=== PATIENT | female | born 1945 | race Caucasian/White ===

== ENCOUNTER 2020-12-04 11:33 | Outpatient (CLI) | payer MEDICARE, SELFPAY ==
--- NOTE | ~2020-12-04 | XR_ITS ---
XR foot RT standing 2V, XR foot LT standing 2V 12/04/2020 12:04 Indication: Rheumatoid arthritis. Procedure: 2 views each foot Comparison: No prior studies for comparison. Findings: Right foot: There is mild hallux valgus. There is mild osteoarthritis of the first MTP and IP joints. There are degenerative calcaneal enthesophytes. No acute fracture or traumatic malalignment. There i s suggestion of erosive change along the proximal lateral aspect of the first metatarsal. Osteopenia. No acute fracture or malalignment. Left foot: Severe osteoarthritis first MTP joint. Mild degenerative change of the first IP joint. The re is possible erosion proximal lateral base first metatarsal. Prominent degenerative calcaneal enthe sophyte at the plantar surface. Impression: 1: Possible erosive changes proximal lateral base of the first metatarsals bilaterally, likely relate d to inflammatory arthropathy. 2: Bilateral osteoarthritis of the first digits, left greater than right. Reviewed, dictated and finalized at location A. ER PRESS OPERATOR Impression: 1: Possible erosive changes proximal lateral base of the first metatarsals bila terally, likely related to inflammatory arthropathy. 2: Bilateral osteoarthritis of the first digits, left greater than right. Impression: 1: Possible erosive changes proximal lateral base of the first metatarsals bila terally, likely related to inflammatory arthropathy. 2: Bilateral osteoarthritis of the first digits, left greater than right.
--- NOTE | ~2020-12-04 | XR_ITS ---
XR hand BI arthritis min 3V 12/04/2020 12:04 Indication: Bilateral hand pain. Rheumatoid arthritis. Procedure: 4 views each hand Comparison: No prior studies for comparison. Findings: Right hand: There is polyarticular osteoarthritis involving the metacarpophalangeal and interphalange al joints. Osteopenia. No erosive changes. No fracture or traumatic malalignment. Left hand: Moderate polyarticular osteoarthritis of the right first, MCP and IP joints as well as the second and third MCP and interphalangeal joints. Osteopenia. Chondrocalcinosis. No acute fracture or traumatic malalignment. No foreign bodies. No erosive changes. Impression: 1: Moderate polyarticular osteoarthritis of the hands. Reviewed, dictated and finalized at location A. GER CHINESE Impression: 1: Moderate polyarticular osteoarthritis of the hands.
== END 2020-12-04 11:34 | disposition home or self-care (01) ==
PROVIDERS: PCP Emergency Medicine; Visit Provider Internal Medicine
DX: M05.79 Rheumatoid arthritis with rheumatoid factor of multiple sites without organ or systems involvement (principal)
CPT/HCPCS: 73130; 73620

== ENCOUNTER 2020-12-28 16:47 | Outpatient (CLI) | payer MEDICARE, SELFPAY | END 2020-12-28 16:48 | disposition home or self-care (01) | LOC: ANHCOVIDVC 16:47 | PROVIDERS: PCP Emergency Medicine | DX: Z23 Encounter for immunization (principal) | CPT/HCPCS: 0001A; 91300 ==

== ENCOUNTER 2021-01-18 16:48 | Outpatient (CLI) | payer MEDICARE, SELFPAY | END 2021-01-18 16:49 | disposition home or self-care (01) | LOC: ANHCOVIDVC 16:48 | PROVIDERS: PCP Emergency Medicine | DX: Z23 Encounter for immunization (principal) | CPT/HCPCS: 0002A; 91300 ==

== ENCOUNTER 2021-03-25 11:48 | Emergency (ER) | payer MEDICARE, SELFPAY ==
--- NOTE | ~2021-03-25 | XR_ITS ---
EXAMINATION: XR knee LT 3V DATE: 03/25/2021 13:22 INDICATION: Left knee injury. TECHNIQUE: 3 views of left knee were obtained. COMPARISON: Left knee radiographs 10/27/2015 FINDINGS: Bone alignment is normal. No fracture. There is mild osteoarthritis of patellofemoral divine rtment. There is chondrocalcinosis of the menisci. There is a small knee joint effusion. IMPRESSION: 1. Mild left knee osteoarthritis. 2. Small left knee joint effusion. Reviewed, dictated and finalized at location B.
--- NOTE | ~2021-03-25 | CT_ITS ---
EXAMINATION: 1. CT facial & cervical spine wo DATE: 03/25/2021 13:13 INDICATION: Fall with head injury and abrasions to the nose. TECHNIQUE: 1. Computed tomography (CT) of the maxillofacial region and of the cervical spine were performed with out intravenous contrast. Sagittal and coronal reconstructions of both regions were obtained. Automat ed exposure control and iterative reconstruction technique were employed. The dose-length product was 250 mGy-cm. COMPARISON: None. FINDINGS: Maxillofacial CT: Likely acute fractures of the bilateral nasal bones with negligible, <1 mm displacement of the left-s ided nasal bone fracture and with angulation without displacement of the right nasal bone fracture. T here is mild associated soft tissue swelling. No other maxillofacial fractures. Chondrocalcinosis at the bilateral temporomandibular discs with moderate right-sided and mild left-sided periventricular o steoarthritis. Changes of bilateral intraocular lens replacement. Mild mucosal thickening the bilate ral maxillary sinuses. Mastoid air cells and middle ear cavities are clear. Cervical spine CT: 2 mm anterolisthesis C7 on T1. Straightening of the normal cervical lordosis. Vertebral body heights are normal. No acute fracture. Severe disc height loss with moderate to severe bilateral uncovertebra l osteoarthritis and posterior disc ossified complexes resulting in mild central canal stenosis at C4 -C5, C5-C6 and C6-C7. Moderate disc height loss at C7-T1 with disc bulges resulting in minimal centra l canal stenosis. Mild disc height loss at C2-C3 at C3-C4 with disc bulge resulting in mild central c anal stenosis at C2-C3. Multilevel moderate to severe bilateral facet osteoarthritis which along with the uncovertebral osteoarthritis contributes towards multilevel minimal to mild bilateral cervical n eural foraminal stenosis. Small amount of atherosclerotic calcific a stent the bilateral carotid bulb s. Approximately 12 mm hypodense right thyroid nodule and coarse calcific a cyst in the bilateral thy roid lobes. Mild biapical pleural-parenchymal scarring. IMPRESSION: 1. Bilateral nasal bone fractures with negligible displacement on the left and nondisplaced with mild angulation on the right. 2. Moderate to severe cervical spondylosis with no acute osseous abnormality. Reviewed, dictated and finalized at location A.
--- NOTE | ~2021-03-25 | CT_ITS ---
EXAMINATION: CT brain wo con DATE: 03/25/2021 13:13 INDICATION: Fall with head injury TECHNIQUE: Computed tomography (CT) of the head was performed without intravenous contrast. Sagittal and coronal reconstructions were performed. The mA was adjusted according to patient size. Iterative reconstruction technique was employed. The dose-length product was 529.67 mGy-cm. COMPARISON: None FINDINGS: No fracture. No acute intracranial hemorrhage, acute infarction or abnormal extra axial fluid collect ion. Symmetric prominence of the sulci consistent with mild age-appropriate diffuse cerebral volume l oss. Ventricles are normal and symmetric. No mass/mass effect. Changes of bilateral intraocular lens replacement. The orbits, paranasal sinuses and mastoid air cells are normal. IMPRESSION: 1. Normal aging brain. No fracture or acute intracranial process. Reviewed, dictated and finalized at location A.
[2021-03-25 12:03] VITALS: BP 150/82; PULSE 98; RESP 18; TEMP 36.4; O2SAT 98
--- NOTE | 2021-03-25 12:10 | ED.FALL ---
HPI - Fall General Chief Complaint: Fall Stated Complaint: Fall Time Seen by Provider: 03/25/21 12:08 Source: patient and family Mode of arrival: ambulatory Limitations: no limitations History of Present Illness HPI Narrative: Patient is a 76-year-old female who presents for evaluation following a mechanical fall. Patient states she was at the dentist office when she tripped on some carpeting, falling onto her face. She denies any prodromal symptoms previous to the fall. Denies chest pain, lightheadedness, dizziness or palpitations. Patient denies loss of consciousness. She is not on any anticoagulation. She reports nasal bone swelling with mild pain. Mild headache pain. No vision changes, nausea or vomiting. She denies neck pain. Patient states she broke her fall with her left knee and reports an abrasion over the knee as well as bruising and pain. She denies hip pain. She has been ambulatory with use of a cane which is her baseline. Related Data Home Medications Medication Instructions Recorded Confirmed Lactobacills gasseri-Bifidobac cap PO DAILY cap 10/02/19 03/16/21 bifidum,longum 1.5 billion cell capsule ascorbate calcium (vitamin C) 500 500 mg PO DAILY 10/02/19 03/16/21 mg tablet aspirin 81 mg capsule,delayed mg PO DAILY cap 10/02/19 03/16/21 release calcium carbonate 500 mg (1,250 1 tablet PO BID 10/02/19 03/16/21 mg)-vitamin D3 200 unit tablet cholecalciferol (vitamin D3) 50 2,000 unit PO DAILY 10/02/19 03/16/21 mcg (2,000 unit) tablet wheat dextrin 3 gram/3.5 gram oral See Rx Instructions .ROUTE .COMPLEX 10/02/19 03/16/21 powder packet Allergies Allergy/AdvReac Type Severity Reaction Status Date / Time ketamine Allergy Intermediate BLURRY Verified 03/25/21 12:23 VISION Review of Systems Review of Systems: Narrative: CONSTITUTIONAL: Denies fever, chills, or sweats. EYES: Denies visual changes, redness, or discharge. ENT: Denies rhinorrhea, congestion, sore throat, or otalgia. Reports nasal bone pain. CARDIOVASCULAR: Denies chest pain, palpitations, or edema. RESPIRATORY: Denies cough or dyspnea. GASTROINTESTINAL: Denies abdominal pain, nausea, vomiting, or diarrhea. GENITOURINARY: Denies dysuria or hematuria. SKIN: Denies rash or itching. MUSCULOSKELETAL: Denies back pain, joint pain, or myalgia. NEUROLOGIC: Reports headache without associated numbness, or weakness. PMFSH Past Medical History Medical History HTN (hypertension) Rheumatoid arthritis with rheumatoid factor of multiple sites without organ or systems involvement (~2017) Skin cancer Vitamin D deficiency Family History Family History Sibling Family history of heart disease in male family member before age 55, Onset Age: 36 Family history of malignant neoplasm Mother Family history of malignant neoplasm of breast in first degree relative Family history of malignant neoplasm of ovary Hypertension Family history of malignant neoplasm Father Family history of throat cancer Family history of cardiovascular disease, Onset Age: 76 Family history of malignant neoplasm, Onset Age: 76 Social History Social History Smoking status: Never smoker Alcohol intake: never Exam Narrative: Exam Narrative: Nursing note and vitals reviewed. CONSTITUTIONAL: The patient appears well-developed and well-nourished. No distress. HEAD: Normocephalic, ecchymoses and abrasion to the nasal bridge. No septal hematoma EYES: PERRL, EOMI, normal conjunctiva, anicteric EARS: External ears clear bilaterally, no hemotympanum MOUTH: OP clear, no erythema, exudates NECK: midline trachea, supple, FROM. No midline cervical spinal tenderness. CARDIOVASCULAR: Normal rate, regular rhythm, normal heart sounds and intact distal pulses. No murmurs, rubs, gallops.
[2021-03-25 14:17] VITALS: BP 153/84; PULSE 99; RESP 19; O2SAT 99
== END 2021-03-25 14:25 | disposition home or self-care (01) ==
PROVIDERS: Emergency Provider Emergency Medicine; PCP Emergency Medicine
DX: S02.2XXA Fracture of nasal bones, initial encounter for closed fracture (principal); M25.462 Effusion, left knee; I10 Essential (primary) hypertension; M05.70 Rheumatoid arthritis with rheumatoid factor of unspecified site without organ or systems involvement; Z85.828 Personal history of other malignant neoplasm of skin; E55.9 Vitamin D deficiency, unspecified
CPT/HCPCS: 70450; 70486; 72125; 73562; 99284

== ENCOUNTER 2021-05-17 02:37 | Day surgery (SDC) | payer MEDICARE, SELFPAY ==
[2021-05-14 13:27] VITALS: BMI 30.2
[2021-05-17 11:34] VITALS: BP 133/73; PULSE 102; RESP 18; TEMP 35.9; O2SAT 98; BMI 29.1
[2021-05-17] MEDS: LACTATED RINGERS 1,000 ML 150 ML IV CONT (11:36)
--- NOTE | 2021-05-17 11:54 | WPDHPUPDATE1 ---
History and Physical Update Update Date/Time: 05/17/21 11:54 History and Physical has been reviewed, including an updated exam of the patient. There are NO changes in the patient's condition. Risks, benefits, and alternatives have been discussed and questions answered. Patient agrees to proceed with procedure.
--- NOTE | 2021-05-17 11:55 | WPDANESEPPF ---
Anes - Initial Pre Proc Eval Procedure: Operation Date: 05/17/21 12:45 Proposed Procedures p Esophagogastroduodenoscopy & Colonoscopy - Baljinder Lemons MD Date/Time: 05/17/21 11:55 Surgeon: Baljinder Lemons MD Pre Op Diagnosis: GI bleed, Anemia Patient Data Age: 76 Gender: F Height: 1.65 m Weight: 79.4 kg Last Vital Signs Temp 96.6 F L 05/17/21 11:34 Pulse 102 H 05/17/21 11:34 Resp 18 05/17/21 11:34 BP 133/73 05/17/21 11:34 Pulse Ox 98 05/17/21 11:34 Allergies Allergy/AdvReac Type Severity Reaction Status Date / Time ketamine Allergy Intermediate BLURRY Verified 05/17/21 11:32 VISION Home Medications Medication Instructions Recorded Confirmed Type Lactobacills gasseri-Bifidobac See Rx Instructions .ROUTE 10/02/19 05/17/21 History bifidum,longum 1.5 billion cell .COMPLEX cap capsule ascorbate calcium (vitamin C) 500 500 mg PO DAILY 10/02/19 05/17/21 History mg tablet aspirin 81 mg capsule,delayed 81 mg PO DAILY cap 10/02/19 05/17/21 History release calcium carbonate 500 mg (1,250 1 tablet PO BID 10/02/19 05/17/21 History mg)-vitamin D3 200 unit tablet cholecalciferol (vitamin D3) 50 2,000 unit PO DAILY 10/02/19 05/17/21 History mcg (2,000 unit) tablet wheat dextrin 3 gram/3.5 gram oral See Rx Instructions .ROUTE .COMPLEX 10/02/19 05/17/21 History powder packet lisinopril 20 mg tablet 20 mg PO DAILY #90 tablet 09/09/20 05/17/21 Rx pravastatin 10 mg tablet See Rx Instructions .ROUTE 09/14/20 05/17/21 Rx .COMPLEX #90 tablet gabapentin 300 mg capsule 300 mg PO TID #90 cap 10/26/20 05/17/21 Rx amlodipine 10 mg tablet See Rx Instructions .ROUTE 10/28/20 05/17/21 Rx .COMPLEX #90 tablet folic acid 1 mg tablet 1 mg PO DAILY #90 tablet 01/01/21 05/17/21 Rx hydroxychloroquine 200 mg tablet 400 mg PO DAILY #60 tablet 03/16/21 05/17/21 Rx methotrexate sodium 2.5 mg tablet 25 mg PO WEEKLY #40 tablet 03/16/21 05/17/21 Rx oxycodone-acetaminophen 5 mg-325 1 tablet PO Q6H PRN #20 tablet 04/07/21 05/17/21 Rx mg tablet prednisone 1 mg tablet 2 mg PO BID #120 tablet 04/20/21 05/17/21 Rx valacyclovir 500 mg tablet 500 mg PO Q12H #180 tablet 04/21/21 05/17/21 Rx prednisone 5 mg tablet 5 mg PO DAILY #30 tablet 05/12/21 05/17/21 Rx Patient hx anesthesia problems: none Family hx anesthesia problems: none PMFSH Past Medical History Medical History (Updated 05/14/21 @ 12:08 by Kylah Solorio, REAL TIME TRADER-C) Anemia Bilateral hand pain Hemorrhoids HTN (hypertension) Rheumatoid arthritis with rheumatoid factor of multiple sites without organ or systems involvement (~2016) Skin cancer Vitamin D deficiency Family History Family History Sibling Family history of heart disease in male family member before age 55, Onset Age: 36 Family history of malignant neoplasm Mother Family history of malignant neoplasm of breast in first degree relative Family history of malignant neoplasm of ovary Hypertension Family history of malignant neoplasm Father Family history of throat cancer Family history of cardiovascular disease, Onset Age: 76 Family history of malignant neoplasm, Onset Age: 76 Social History Social History Social History: Patient drinks caffeine daily. Smoking status: Never smoker Second hand tobacco smoke exposure: No Alcohol intake: never Substance use: never Substance use type: does not use Living arrangements: alone Additional living arrangements comments: Patient is a . Gender identity (if verbalized by the patient): Female Spiritual care concerns: No Anes - Eval Final PreProcedure Day of Procedure 05/17/21 11:55 Patient weight: overweight Heart: regular rate and rhythm Lungs: clear to auscultation Airway: Mallampati scale class II Neurological: alert and oriented
--- NOTE | 2021-05-17 12:19 | SUR.OPER ---
EGD ENDED 1206, COLONOSCOPY STARTED 1212
[2021-05-17 12:27] VITALS: BP 96/55; PULSE 77; RESP 14; O2SAT 99
[2021-05-17 12:37] VITALS: BP 106/65; PULSE 79; RESP 17; O2SAT 99
[2021-05-17 12:47] VITALS: BP 109/52; PULSE 80; RESP 18; O2SAT 100
== END 2021-05-17 13:00 | disposition home or self-care (01) ==
PROVIDERS: PCP Emergency Medicine; Visit Provider Internal Medicine Gastroenterology
PROC: 0DJ08ZZ Inspection of Upper Intestinal Tract, Via Natural or Artificial Opening Endoscopic (ICD-10-PCS; CPT 43235; principal; 2021-05-17 12:45)
DX: D64.9 Anemia, unspecified (principal); R19.5 Other fecal abnormalities; D12.0 Benign neoplasm of cecum; K64.9 Unspecified hemorrhoids; K57.30 Diverticulosis of large intestine without perforation or abscess without bleeding; I10 Essential (primary) hypertension; E55.9 Vitamin D deficiency, unspecified; M06.9 Rheumatoid arthritis, unspecified; E78.5 Hyperlipidemia, unspecified; Z79.82 Long term (current) use of aspirin
CPT/HCPCS: 45380; 43239; 88305; J2704; J7120

== ENCOUNTER 2021-10-01 13:28 | Outpatient (CLI) | payer MEDICARE, OTHER, SELFPAY ==
--- NOTE | ~2021-10-01 | DEXA_ITS ---
Bone Density Report Name: Preethi Casas Age: 76 Sex: Female Ethnicity: White Date of : 1945 Indication: postmenopausal; height loss; history of glucocorticoids; prior fracture; hysterectomy; rheumatoid arthritis; Referring Provider: PATRICA KUMAR Study: Bone densitometry was performed. Exam Date: October 01, 2021 Accession number: [id number] Bone Density: Region BMD T-score Z-score Classification AP Spine (L1, L2, L3) 0.901 -1.1 1.5 Osteopenia Femoral Neck (Left) 0.686 -1.5 0.8 Osteopenia Total Hip (Left) 0.789 -1.3 0.7 Osteopenia Total Hip Bilateral Avg 0.756 -1.6 0.4 Osteopenia Femoral Neck (Right) 0.623 -2.0 0.2 Osteopenia Total Hip (Right) 0.723 -1.8 0.2 Osteopenia World Health Organization criteria for BMD impression classify patients as: Normal (T-score at or above -1.0), Osteopenia (T-score between -1.0 and -2.5), or Osteoporosis (T-score at or below -2.5). 10-year Fracture Risk(1): Major Osteoporotic Fracture 39% Hip Fracture 13% Reported Risk Factors: [place] (), Neck BMD=0.623, BMI=30.1, previous fracture, glucocorticoids, rheumatoid arthritis (1) FRAX(R) Version 3.08. Fracture probability calculated for an untreated patient. Fracture probability may be lower if the patient has received treatment. Previous Exams: Region Exam Age BMD T-score BMD Change BMD Change Date g/cm2 vs Baseline vs Previous AP Spine(L1, L2, L3) 10/01/2021 76 0.901 -1.1 0.037(4.2%)# -0.004(-0.5%) 03/02/2018 73 0.905 -1.0 0.041(4.7%)# 0.025(2.8%)* 02/12/2016 71 0.880 -1.3 0.016(1.8%)# 0.016(1.8%)# 06/21/2013 68 0.864 -1.4 Total Hip(Left) 10/01/2021 76 0.789 -1.3 -0.104(-11.7%) -0.099(-11.1%) 03/02/2018 73 0.889 -0.4 -0.005(-0.6%)# 0.006(0.7%) 02/12/2016 71 0.883 -0.5 -0.011(-1.3%)# -0.011(-1.3%)# 06/21/2013 68 0.894 -0.4 Total Hip(Right) 10/01/2021 76 0.723 -1.8 -0.126(-14.8%) -0.096(-11.8%) 03/02/2018 73 0.819 -1.0 -0.029(-3.5%)# -0.009(-1.1%) 02/12/2016 71 0.828 -0.9 -0.021(-2.4%)# -0.021(-2.4%)# 06/21/2013 68 0.849 -0.8 *Denotes significance at 95% confidence level, LSC for AP Spine = 0.022 g/cm2, LSC for Total Hip = 0.027 g/cm2 Clinical Information Provided by Patient: Has had a low trauma fracture Has taken Glucocorticoids Has rheumatoid arthritis Has used the following medications: Vitamin D, Calcium Has the following medical conditions: Hysterectomy Patient maximum height was 67 Menopause Age: 46
--- NOTE | ~2021-10-01 | MM_ITS ---
EXAMINATION: MM screening jeramie BI w loco HISTORY: Screening mammogram TECHNIQUE: Craniocaudal and mediolateral oblique 3-D tomosynthesis images were obtained and synthetic 2-D images were generated. CAD analysis was submitted and interpreted. COMPARISON: bilateral screening mammogram 06/01/2015 diagnostic right mammogram and limited right breast ultrasound 08/06/2014 bilateral diagnostic mammogram and bilateral breast ultrasound examination 08/06/2014 bilateral diagnostic mammogram 07/16/2014 bilateral screening mammogram BREAST PARENCHYMAL COMPOSITION: There are scattered areas of fibroglandular density. FINDINGS: Stable posterior outer mid right breast approximately 1 cm circumscribed low-density opacit y, demonstrated to be a cyst on prior examinations, not significantly changed since 07/16/2014. Occasional benign calcifications. There is no evidence of suspicious mass, calcification, or architec tural distortion to suggest malignancy in either breast. There has been no suspicious interval change . IMPRESSION: 1. Benign findings 2. Recommend routine screening mammography in one year. BI-RADS Category 2: Benign finding(s). Reviewed, dictated and finalized at location A. REPAIR COBBLER
== END 2021-10-01 13:29 | disposition home or self-care (01) ==
LOC: ANHIMG 13:30
PROVIDERS: PCP Emergency Medicine; Visit Provider Emergency Medicine
DX: Z12.31 Encounter for screening mammogram for malignant neoplasm of breast (principal); Z78.0 Asymptomatic menopausal state; M85.851 Other specified disorders of bone density and structure, right thigh; M85.852 Other specified disorders of bone density and structure, left thigh; M85.88 Other specified disorders of bone density and structure, other site
CPT/HCPCS: 77063; 77067; 77080

== ENCOUNTER 2021-12-08 09:57 | Outpatient (CLI) | payer MEDICARE, SELFPAY ==
--- NOTE | ~2021-12-08 | US_ITS ---
EXAMINATION: US venous doppler LE RT EXAM DATE: 12/08/2021 10:24 INDICATION: M79.89 - Other specified soft tissue disorders . TECHNIQUE: Multiple grayscale, color flow and Doppler images of the right lower extremity deep venous system were obtained and reviewed. There is no prior study for comparison. FINDINGS: The right common femoral, femoral and profunda veins demonstrate normal color flow, respira tory variation, augmentation and compressibility. Compressibility, color flow confirmed within the r ight popliteal, posterior tibial, peroneal, and greater saphenous veins. Popliteal fossa cystic lesi on probably Salomon's cyst region measuring 1.2 x 4.7 x 4.3 cm. IMPRESSION: No right lower extremity deep venous thrombosis. Reviewed, dictated and finalized at location B. SMITTER OPERATOR
== END 2021-12-08 09:58 | disposition home or self-care (01) ==
LOC: ANHIMG 10:00
PROVIDERS: PCP Emergency Medicine; Visit Provider Emergency Medicine
DX: M79.89 Other specified soft tissue disorders (principal); M79.601 Pain in right arm
CPT/HCPCS: 93971

== ENCOUNTER 2021-12-15 14:27 | Outpatient (CLI) | payer MEDICARE, SELFPAY ==
--- NOTE | ~2021-12-15 | MR_ITS ---
. EXAMINATION: MR lower leg RT wo con DATE: 12/15/2021 16:07 INDICATION: Right knee pain and Salomon's cyst. TECHNIQUE: Magnetic resonance imaging (MRI) of the right lower leg was performed without intravenous contrast. Sequences included axial, sagittal and coronal T1-weighted FSE and fluid sensitive FSE STIR . The contralateral left lower leg is included on the coronal images. COMPARISON: None. FINDINGS: Bone alignment is normal. No fracture or pathologic marrow replacing process. Assessment of the menis ci and cartilage at both knees is significantly more limited than on the standard small [id number] MRI of the knee. There is medial extrusion of the bilateral medial meniscal bodies with suggestion o f radial tears at the bilateral posterior horns. Complex tear at the body of the right lateral menisc us. Osteoarthritis at the bilateral knees with significant cartilage thinning suggested at the latera l compartment of the right knee and medial compartment of the left knee. Moderate-sized joint effusio n with synovitis in the suprapatellar pouch of the right knee. Small left knee joint effusion. Modera te-sized bilateral Salomon's cysts measuring 7.5 x 2.1 x 2.8 cm at the right popliteal fossa and 7.2 x 1.0 x 1.7 cm the left popliteal fossa. There is relatively symmetric mild diffuse fatty atrophy of th e musculature at the bilateral calves. IMPRESSION: 1. Moderate-sized bilateral Salomon's cyst. 2. Medial and lateral meniscal tears at the right knee and medial meniscal tear at the left knee. 3. Osteoarthritis with likely of at least moderate severity at the medial compartment of the left kne e at the lateral compartment of the right knee however evaluation is significantly more limited than on a standard small [id number] MRI of the knee. 4. Bilateral knee joint effusions, moderate-sized on the right and small on the left. Reviewed, dictated and finalized at location A. REPAIRER IMPRESSION: 1. Moderate-sized bilateral Salomon's cyst. 2. Medial and lateral meniscal tears at the right knee and medial meniscal tear at the left knee. 3. Osteoarthritis with likely of at least moderate severity at the medial divine rtment of the left knee at the lateral compartment of the right knee however ev aluation is significantly more limited than on a standard small [id number] M RI of the knee. 4. Bilateral knee joint effusions, moderate-sized on the right and small on the left.
== END 2021-12-15 14:28 | disposition home or self-care (01) ==
LOC: ANHIMG 14:33
PROVIDERS: PCP Emergency Medicine; Visit Provider Emergency Medicine
DX: M71.21 Synovial cyst of popliteal space [Baker], right knee (principal); S83.281A Other tear of lateral meniscus, current injury, right knee, initial encounter; S83.241A Other tear of medial meniscus, current injury, right knee, initial encounter; M17.11 Unilateral primary osteoarthritis, right knee; M25.461 Effusion, right knee
CPT/HCPCS: 73718

== ENCOUNTER 2024-05-15 09:48 | Outpatient (CLI) | payer MEDICARE, SELFPAY ==
--- NOTE | ~2024-05-15 | DEXA_ITS ---
Bone Density Report Name: CHRISTINA NATARAJAN Age: 79 Sex: Female Ethnicity: White Date of : 1945 Indication: osteopenia; height loss; history of glucocorticoids; hysterectomy; rheumatoid arthritis; secondary osteoporosis; Referring Provider: PATRICA KUMAR Study: Bone densitometry was performed. Exam Date: May 15, 2024 Accession number: [id number] Bone Density: Region BMD T-score Z-score Classification AP Spine(L1, L2, L3) 0.953 -0.6 2.1 Normal Femoral Neck (Left) 0.705 -1.3 1.1 Osteopenia Total Hip (Left) 0.882 -0.5 1.6 Normal Femoral Neck (Right) 0.710 -1.3 1.1 Osteopenia Total Hip (Right) 0.888 -0.4 1.7 Normal Total Hip Mean 0.885 -0.5 1.7 Normal World Health Organization criteria for BMD impression classify patients as: Normal (T-score at or above -1.0), Osteopenia (T-score between -1.0 and -2.5), or Osteoporosis (T-score at or below -2.5). 10-year Fracture Risk(1): Major Osteoporotic Fracture 23% Hip Fracture 6.7% Reported Risk Factors: [place] (), Neck BMD=0.705, BMI=31.9, glucocorticoids, rheumatoid arthritis, secondary osteoporosis (1) FRAX(R) Version 3.08. Fracture probability calculated for an untreated patient. Fracture probability may be lower if the patient has received treatment. Previous Exams: Region Exam Age BMD T-score BMD Change BMD Change Date g/cm2 vs Baseline vs Previous AP Spine (L1-L3) 05/15/2024 79 0.953 -0.6 0.088 (10.2%)# 0.052 (5.7%)* 10/01/2021 76 0.901 -1.1 0.037 (4.2%)# -0.004 (-0.5%) 03/02/2018 73 0.905 -1.0 0.041 (4.7%)# 0.025 (2.8%)* 02/12/2016 71 0.880 -1.3 0.016 (1.8%)# 0.016 (1.8%)# 06/21/2013 68 0.864 -1.4 Total Hip(Left) 05/15/2024 79 0.882 -0.5 -0.012 (-1.3%) 0.093 (11.7%)* 10/01/2021 76 0.789 -1.3 -0.104 (-11.7% -0.099 (-11.1% 03/02/2018 73 0.889 -0.4 -0.005 (-0.6%) 0.006 (0.7%) 02/12/2016 71 0.883 -0.5 -0.011 (-1.3%) -0.011 (-1.3%) 06/21/2013 68 0.894 -0.4 Total Hip(Right) 05/15/2024 79 0.888 -0.4 0.039 (4.6%)# 0.165 (22.8%)* 10/01/2021 76 0.723 -1.8 -0.126 (-14.8% -0.096 (-11.8% 03/02/2018 73 0.819 -1.0 -0.029 (-3.5%) -0.009 (-1.1%) 02/12/2016 71 0.828 -0.9 -0.021 (-2.4%) -0.021 (-2.4%) 06/21/2013 68 0.849 -0.8 *Denotes significance at 95% confidence level, LSC for AP Spine = 0.022 g/cm2, LSC for Total Hip = 0.027 g/cm2 # Denotes dissimilar scan types or analysis methods Clinical Information Provided by Patient:
--- NOTE | ~2024-05-15 | MM_ITS ---
EXAMINATION: MM screening jeramie BI w loco HISTORY: Screening TECHNIQUE: Craniocaudal and mediolateral oblique 3-D tomosynthesis images were obtained and synthetic 2-D images were generated. CAD analysis was submitted and interpreted. COMPARISON: No prior mammogram is available for comparison at this institution. BREAST PARENCHYMAL COMPOSITION: Not dense: There are scattered areas of fibroglandular density. FINDINGS: There is no evidence of suspicious mass, calcification, or architectural distortion to sugg est malignancy in either breast. There has been no suspicious interval change. IMPRESSION: 1. No mammographic evidence of malignancy. 2. Recommend routine screening mammography in one year. BI-RADS Category 1: Negative Reviewed, dictated and finalized at location B.
== END 2024-05-15 09:49 | disposition home or self-care (01) ==
LOC: ANHIMG 09:49
PROVIDERS: PCP Emergency Medicine; Visit Provider Emergency Medicine
DX: Z12.31 Encounter for screening mammogram for malignant neoplasm of breast (principal); M85.89 Other specified disorders of bone density and structure, multiple sites; Z78.0 Asymptomatic menopausal state
CPT/HCPCS: 77063; 77067; 77080

== ENCOUNTER 2024-08-27 14:56 | Emergency (ER) | payer MEDICARE, SELFPAY ==
--- NOTE | ~2024-08-27 | XR_ITS ---
EXAMINATION: XR forearm LT 2V DATE: 08/27/2024 15:51 INDICATION: Left forearm pain post fall TECHNIQUE: AP an lateral views of the left forearm were obtained. COMPARISON: none FINDINGS: Diffuse osteopenia. Bone alignment is normal. No fracture. Osteoarthritis, moderate at the first carp ometacarpal joint and mild at the triscaphe and wrist joints. There is chondrocalcinosis at the wrist joint region of the triangular fibrocartilage complex. Joint spaces appear relatively preserved at t he left elbow with suggestion of elbow joint effusion with displacement of the anterior but not the p osterior fat pad. Small enthesophytes at the lateral humeral epicondyle and small enthesopathic ossic les at the medial epicondylar origin of the common flexor tendon wad. Mild soft tissue swelling poste rior to the proximal to mid forearm. Additional minimal dystrophic ossification at the distal triceps tendon. IMPRESSION: 1. Possible left elbow joint effusion with no evident acute osseous abnormality. 2. Scattered degenerative skeletal and chronic enthesopathic changes as detailed above. Reviewed, dictated and finalized at location A. IMPRESSION: 1. Possible left elbow joint effusion with no evident acute osseous abnormality . 2. Scattered degenerative skeletal and chronic enthesopathic changes as detaile d above.
--- NOTE | ~2024-08-27 | XR_ITS ---
EXAM: XR knee RT 3V DATE: 08/27/2024 15:51 HISTORY: fall, swelling . COMPARISON: 08/22/2024, images only. FINDINGS: Normal mineralization. No fracture or dislocation. No lytic or blastic lesion. Moderate tr icompartmental arthritis with chondrocalcinosis. Moderate volume joint fluid.. No erosion or perioste al change. Marked anterior soft tissue swelling/contusion. IMPRESSION: No acute osseous finding in the right knee. Reviewed, dictated and finalized at location K.
[2024-08-27 15:12] VITALS: BP 124/82; PULSE 92; RESP 16; TEMP 36.2; O2SAT 98
--- NOTE | 2024-08-27 15:13 | ED.LOWEXIN ---
HPI - Extremity Injury (Lower) General Chief Complaint: Extremity Injury, Lower Stated Complaint: fall/upper and lower extremity injury Source: patient Mode of arrival: ambulatory Limitations: no limitations History of Present Illness HPI Narrative: 79 y/o female with hx RA presented for c/o right knee pain, bruising and swelling as well as left forearm pain after injury today. States she tripped over furniture and landed on the right knee and left hand. Pt has been able to walk on it. Reports more swelling bruising than normal. 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 Reports chronic right knee pain and effusion for which she sees ortho and says she needs a knee replacement. Pt says she had the knee drained and a cortisone injection 5 days ago. Rates pain 04/08. Denies deformity, swelling or bruising to the left forearm. Endorses pain to left elbow with bending. Denies numbness, tingling or weakness of extremities. Related Data Home Medications Medication Instructions Recorded Confirmed ascorbate calcium (vitamin C) 500 500 mg PO DAILY 10/02/19 08/27/24 mg tablet aspirin 81 mg capsule,delayed 81 mg PO DAILY 10/02/19 08/27/24 release cholecalciferol (vitamin D3) 50 2,000 unit PO DAILY 10/02/19 08/27/24 mcg (2,000 unit) tablet wheat dextrin 3 gram/3.5 gram oral See Rx Instructions .Route .COMPLEX 10/02/19 08/27/24 powder packet (Benefiber Clear Sugar Free(dextrin)) Allergies Allergy/AdvReac Type Severity Reaction Status Date / Time ketamine Allergy Intermediate BLURRY Verified 08/22/24 08:51 VISION Review of Systems Review of Systems: CONSTITUTIONAL: Denies body aches, fever, chills CARDIOVASCULAR: Denies chest pain, palpitations, or edema. RESPIRATORY: Denies cough or dyspnea. SKIN: Denies wounds. MUSCULOSKELETAL: Reports right knee pain and left arm pain NEUROLOGIC: Denies headache, numbness, tingling, or weakness. All systems reviewed & are unremarkable except as noted in HPI and below PMFSH Past Medical History Medical History Age related osteoporosis Anemia Arthritis Bakers cyst Bilateral hand pain Diastolic dysfunction, left ventricle ORTEGA (dyspnea on exertion) Dyslipidemia Earache on left Edema of both legs Edema, lower extremity Effusion of knee joint right Elevated ALT measurement Elevated liver enzymes Essential (primary) hypertension External hemorrhoid Fatigue H/O adenomatous polyp of colon Hemorrhoids HTN (hypertension) Hyperglycemia Hyperlipidemia Increased BMI Labyrinthitis of both ears Left ear pain Nasal fracture Obesity Occult blood positive stool Osteopenia Other screening mammogram Polyosteoarthritis, unspecified Post-menopausal Rheumatoid arthritis Rheumatoid arthritis with rheumatoid factor of multiple sites without organ or systems involvement (~2017) Rheumatoid myopathy with rheumatoid arthritis Right ankle pain Right calf pain Right knee DJD Shingles Sinusitis SOB (shortness of breath) Vertigo Vitamin B 12 deficiency Vitamin D deficiency Wears glasses Surgical History Surgical History Colonoscopy planned History of back surgery History of eye surgery History of hysterectomy Skin cancer Family History Family History Sibling Family history of heart disease in male family member before age 55, Onset Age: 36 Family history of malignant neoplasm Mother Family history of malignant neoplasm of breast in first degree relative Family history of malignant neoplasm of ovary Hypertension Family history of malignant neoplasm Father Family history of throat cancer Family history of cardiovascular disease, Onset Age: 76 Family history of malignant neoplasm, Onset Age: 76 Other Diabetes mellitus HLD (hyperlipidemia) Social History Social History Social History: Patient drinks caffeine daily. Smoking status: Never smoker Second hand tobacco smoke exposure: No Alcohol intake: never Substance use: never Substance use type: does not use Current Housing: Decline to Answer Concerned About Future Housing: Decline to Answer Difficulty Paying Gas/Electric Bills: Decline to Answer Difficulty Paying for Meds: Decline to Answer Currently Unemployed: Decline to Answer Education: Decline to Answer Difficulty w/ Childcare or Family Care: Decline to Answer Living arrangements: alone Additional living arrangements comments: Patient is a . Occupation/Education: retired Gender identity (if verbalized by the patient): Female Sexual Orientation (if Verbalized by the Patient): Straight or Heterosexual Spiritual care concerns: No Comments At time of signature, I have reviewed and agree with nursing past medical, surgical, social and family history unless otherwise noted. Please see nursing chart for further information. There is no relevant family history pertinent to the presenting complaint Exam Narrative: GENERAL: Well-appearing HEAD: Normocephalic, atraumatic. NECK: full ROM CHEST: Speaks in full sentences. No respiratory distress. HEART: Regular rate and rhythm. Normal and equal peripheral pulses. EXTREMITIES: Chronic BLE edema. Right knee with large amount of swelling and bruising, tender with palpation. RLE has normal strength and sensation, slightly limited range of motion with flexion/extension due to pain with movement. No open wounds, or obvious deformity; alignment normal, pulse palpable and equal bilaterally, skin warm, dry, pink. Capillary refill less than 3 seconds. Left forearm and elbow is nontender with palpation, no swelling bruising or deformity. Full ROM at wrist and elbow, endorses mild pain to elbow with flexion. SKIN: Warm, dry NEURO: Alert and oriented x3. PSYCH: Normal mood and affect Course Course Emergency Course: Patient is aware of diagnosis, understands and agrees to treatment plan. Anticipatory guidance given. Patient agrees to follow-up as directed and is aware of reasons to seek care at the emergency department. Portions of this record may have been created with voice recognition software Level of Care: Express Care Visit Vital Signs Vital signs: Vital Signs Temperature 97.2 F L 08/27/24 15:12 Pulse Rate 92 08/27/24 15:12 Respiratory Rate 16 08/27/24 15:12 Blood Pressure 124/82 08/27/24 15:12 Pulse Oximetry 98 08/27/24 15:12 Temperature 97.2 F L 08/27/24 15:12 Pulse Rate 92 08/27/24 15:12 Respiratory Rate 16 08/27/24 15:12 Blood Pressure 124/82 08/27/24 15:12 Pulse Oximetry 98 08/27/24 15:12 Reviewed MDM - Extremity Injury (Lower) MDM Narrative Medical decision making narrative: Discussed physical exam findings and xrays. SHELLI wraps applied to right knee and left elbow. Pt is established with Dr Bryant. Advised supportive measures and signs/symptoms to go to the ER. Pt is appropriate for outpt treatment and f/u. Differential Diagnosis Differential diagnosis: Likely other (osteoarthritis, patella dislocation, patellar tendonitis, tendon rupture, gout, bakers cyst, septic bursitis, dvt, tibial plateau fracture) Imaging Data Radiologist's impression: Patient: Preethi Casas : 1945 MR#: [id number] Age: 79 Acct:[id number] Loc: [facility] ADM Date: 08/27/24Attending Dr: Ordering Physician: Chantelle Owens APRN Date of Service: 08/27/24 Procedure(s): XR knee RT 3V Accession Number(s): [id number] cc: Chantelle Owens APRN; Darius Novoa MD~ EXAM: XR knee RT 3V DATE: 08/27/2024 15:51 HISTORY: fall, swelling . COMPARISON: 08/22/2024, images only. FINDINGS: Normal mineralization. No fracture or dislocation. No lytic or blastic lesion. Moderate tricompartmental arthritis with chondrocalcinosis. Moderate volume joint fluid.. No erosion or periosteal change. Marked anterior soft tissue swelling/contusion. IMPRESSION: No acute osseous finding in the right knee. Patient: Preethi Casas : 1945 MR#: [id number] Age: 79 Acct:[id number] Loc: [facility] ADM Date: 08/27/24Attending Dr: Ordering Physician: Chantelle Owens APRN Date of Service: 08/27/24 Procedure(s): XR forearm LT 2V Accession Number(s): [id number] cc: Chantelle Owens APRN; Darius Novoa MD~ EXAMINATION: XR forearm LT 2V DATE: 08/27/2024 15:51 INDICATION: Left forearm pain post fall TECHNIQUE: AP an lateral views of the left forearm were obtained. COMPARISON: none FINDINGS: Diffuse osteopenia. Bone alignment is normal. No fracture. Osteoarthritis, moderate at the first carpometacarpal joint and mild at the triscaphe and wrist joints. There is chondrocalcinosis at the wrist joint region of the triangular fibrocartilage complex. Joint spaces appear relatively preserved at the left elbow with suggestion of elbow joint effusion with displacement of the anterior but not the posterior fat pad. Small enthesophytes at the lateral humeral epicondyle and small enthesopathic ossicles at the medial epicondylar origin of the common flexor tendon wad. Mild soft tissue swelling posterior to the proximal to mid forearm. Additional minimal dystrophic ossification at the distal triceps tendon. IMPRESSION: 1. Possible left elbow joint effusion with no evident acute osseous abnormality. 2. Scattered degenerative skeletal and chronic enthesopathic changes as detailed above Discharge Plan Discharge Clinical Impression: Pain and swelling of right knee, Arm pain, left Patient Disposition: Home, Self-Care Condition: Stable Instructions: Antibiotic Form, Swollen Knee Joint (ED) Additional Instructions: Rest; avoid excessive walking. Elevate the right leg. bear weight as tolerated Apply ice 15-20 minute intervals several times a day to knee and elbow Keep it wrapped with SHELLI or use a soft knee and elbow splint Tylenol 1000mg every 8 hours as needed Follow up with your primary care provider and food safety specialist, call today to schedule appointment Go to the ER for worsening symptoms or concerns Prescriptions: No Action aspirin 81 mg capsule,delayed release(DR/EC) 81 mg PO DAILY ascorbate calcium (vitamin C) 500 mg tablet 500 mg PO DAILY cholecalciferol (vitamin D3) 2,000 unit tablet 2,000 unit PO DAILY Benefiber Clear SF (dextrin) 3 gram/3.5 gram powder in packet See Rx Instructions .ROUTE .COMPLEX Rx Instructions: take by oral route daily ; methotrexate sodium 2.5 mg tablet See Rx Instructions .ROUTE .COMPLEX Qty: 48 1RF Dose Instruction: TAKE 4 TABLETS (10 MG) EVERY WEEK Rx Instructions: TAKE 4 TABLETS (10 MG) EVERY WEEK folic acid 1 mg tablet 2 mg PO DAILY Qty: 180 1RF Rinvoq 15 mg tablet extended release 24 hr 15 mg PO DAILY Qty: 30 11RF alendronate 70 mg tablet See Rx Instructions .ROUTE .COMPLEX Qty: 12 3RF Dose Instruction: TAKE 1 TABLET WEEKLY Rx Instructions: TAKE 1 TABLET WEEKLY ezetimibe 10 mg tablet See Rx Instructions .ROUTE .COMPLEX Qty: 90 3RF Dose Instruction: TAKE 1 TABLET DAILY Rx Instructions: TAKE 1 TABLET DAILY losartan-hydrochlorothiazide 100-25 mg tablet See Rx Instructions .ROUTE .COMPLEX Qty: 90 2RF Dose Instruction: TAKE 1 TABLET DAILY Rx Instructions: TAKE 1 TABLET DAILY amlodipine 5 mg tablet See Rx Instructions .ROUTE .COMPLEX Qty: 90 2RF Dose Instruction: TAKE 1 TABLET DAILY Rx Instructions: TAKE 1 TABLET DAILY valacyclovir 500 mg tablet See Rx Instructions .ROUTE .COMPLEX Qty: 180 3RF Dose Instruction: TAKE 1 TABLET EVERY 12 HOURS Rx Instructions: TAKE 1 TABLET EVERY 12 HOURS pravastatin 10 mg tablet See Rx Instructions .ROUTE .COMPLEX Qty: 90 2RF Hold Instructions: .Provider Order Dose Instruction: TAKE 1 TABLET DAILY Rx Instructions: TAKE 1 TABLET DAILY Follow-up/Referrals: Adonay Bryant MD [Physician] - Darius Novoa MD [Primary Care Provider] -
== END 2024-08-27 16:13 | disposition home or self-care (01) ==
PROVIDERS: Emergency Provider Nurse Practitioner Family; PCP Emergency Medicine
DX: M25.561 Pain in right knee (principal); M25.461 Effusion, right knee; M79.632 Pain in left forearm; E78.5 Hyperlipidemia, unspecified; I10 Essential (primary) hypertension; M85.80 Other specified disorders of bone density and structure, unspecified site; E55.9 Vitamin D deficiency, unspecified; M05.79 Rheumatoid arthritis with rheumatoid factor of multiple sites without organ or systems involvement; M81.0 Age-related osteoporosis without current pathological fracture; Z79.82 Long term (current) use of aspirin
CPT/HCPCS: 73090; 73562; 99214; G0463

== ENCOUNTER 2024-08-27 21:21 | Emergency (ER) | payer MEDICARE, SELFPAY ==
[2024-08-27] VITALS (9 sets, daily range): BP systolic 44–141; BP diastolic 29–70; PULSE 58–103; RESP 12–25; TEMP 36.5; O2SAT 91–99
--- NOTE | ~2024-08-27 | XR_ITS ---
EXAMINATION: XR chest 2V Exam Date/Time: 08/27/2024 21:42 CDT HISTORY: syncopal episode Comparison: None. RESULT: Lines, tubes, and devices: None. Lungs and pleura: Minimal bibasilar atelectasis/scar and senescent change, otherwise clear. Cardiomediastinal silhouette: Stable. Other: No acute osseous or upper abdominal finding. IMPRESSION: No acute cardiopulmonary process. Reviewed, dictated and finalized at location K.
--- NOTE | 2024-08-27 21:28 | ECG_ITS ---
Test Date: 2024-08-27 21:31:43 Measurements Intervals Carmen Rate: 82 P: 40 NJ: 194 QRS: 155 QRSD: 74 T: 47 QT: 350 QTc: 409 Interpretive Statements SINUS RHYTHM LOW QRS VOLTAGE IN PRECORDIAL LEADS [QRS DEFLECTION < 1.0 mV IN CHEST LEADS] INCOMPLETE RIGHT BUNDLE BRANCH BLOCK POSSIBLE ANTERIOR MYOCARDIAL INFARCTION , PROBABLY OLD [30 ms Q WAVE IN V3/V4, OR R < 0.2 mV IN V4] No previous ECG available for comparison Electronically Signed On 08-28-2024 14:28:05 CDT by Rakesh Zendejas M.D.
[2024-08-27 21:44] LABS: Basophils Absolute Auto 0.1 K/mm3 (0.0-0.1); Basophils Percent Auto 0.3 % (0.2-1.2); Eosinophils Absolute Auto 0.1 K/mm3 (0-0.3); Eosinophils Percent Auto 0.4 % (0-4.4); Hematocrit 29.9 % (37.0-47.0); Hemoglobin 10.3 g/dL (12.0-15.0); Immature Granulocyte Absolute 0.18 K/mm3 (0.00-0.031); Immature Granulocyte Percent A 0.9 % (0-0.5); Lymphocytes Absolute Auto 1.77 K/mm3 (0.9-3.2); Lymphocytes Percent Auto 9.2 % (18.3-44.2); Mean Corpuscular HGB Conc 34.4 g/dl (32-36); Mean Corpuscular Hemoglobin 36.1 pg (26-34); Mean Corpuscular Volume 104.9 fl (80-100); Mean Platelet Volume 9.4 fl (7.4-10.4); Monocytes Absolute Auto 1.4 K/mm3 (0.1-0.6); Monocytes Percent Auto 7.2 % (2.6-8.5); Neutrophils Absolute Auto 15.7 K/mm3 (1.3-6.7); Platelet Count Result 400 k/mm3 (150-375); Red Blood Count 2.85 M/mm3 (4.2-5.4); Red Cell Distribution Width 15.2 % (11.5-14.5); White Blood Count 19.1 K/mm3 (4.5-10.0)
[2024-08-27 21:48] LABS: Add Urine Microscopic? NO; Appearance Urine Clear (Clear); Bilirubin Urine Negative (Negative); Blood Urine Negative (Negative); Color Urine Yellow (Yellow); Glucose Urine UA Negative (Negative); Ketones Urine Negative (Negative); Leukocyte Esterase Ur Negative LEU/UL (Negative); Nitrate Urine Negative (Negative); Protein Urine Negative (Negative); Specific Grav Ur 1.017 (1.001-1.035); Urobilinogen Urine 0.2 mg/dL (<2.0); pH Urine 7.5 (5.0-9.0)
[2024-08-27 21:54] LABS: Alanine Aminotransferase 25 U/L (6-35); Albumin Level 4.1 g/dL (3.5-5.1); Alkaline Phosphatase 62 U/L (38-126); Anion Gap 9 mmol/L (4-12); Aspartate Amino Transferase 26 U/L (14-36); Bilirubin,Total 0.8 mg/dL (0.2-1.3); Blood Urea Nitrogen 26 mg/dL (7-17); Calcium 9.7 mg/dL (8.4-10.2); Carbon Dioxide 30 mmol/L (22-30); Chloride 91 mmol/L (98-107); Estimated CRCL calculation 52 ml/min; Estimated Glomerular Filt Rate 39; Glucose 129 mg/dL (65-110); Potassium 3.2 mmol/L (3.4-5.0); Sodium 130 mmol/L (137-145)
[2024-08-28] MEDS: SODIUM CHLORIDE 0.9% IV 1,000 ML 999 ML IV CONT ×2 (00:13→02:15)
[2024-08-28 00:15] VITALS: BP 118/71; PULSE 78; RESP 17; O2SAT 97
[2024-08-28 01:16] VITALS: BP 130/67; PULSE 84; RESP 18; O2SAT 97
[2024-08-28 01:31] VITALS: BP 127/67; PULSE 78; RESP 15; O2SAT 95
--- NOTE | 2024-08-28 01:56 | ED.GENADULT ---
HPI - General Adult General Chief complaint: Dizziness Stated complaint: NEAR SYNCOPE, DIZZINESS Time Seen by Provider: 08/27/24 23:45 History of Present Illness HPI narrative: Patient is 79-year-old female who presents emergency department with chief complaint of syncopal episode. Patient reports that she had a ground level fall and then this evening was walking up steps got lightheaded and reports that she had a brief episode of syncope the patient denied head injury did report that she hit her face were with her glasses patient reports that she had no loss of bowel or bladder symptoms reports that whenever she stands up she gets lightheaded. Related Data Home Medications Medication Instructions Recorded Confirmed ascorbate calcium (vitamin C) 500 500 mg PO DAILY 10/02/19 08/27/24 mg tablet aspirin 81 mg capsule,delayed 81 mg PO DAILY 10/02/19 08/27/24 release cholecalciferol (vitamin D3) 50 2,000 unit PO DAILY 10/02/19 08/27/24 mcg (2,000 unit) tablet wheat dextrin 3 gram/3.5 gram oral See Rx Instructions .Route .COMPLEX 10/02/19 08/27/24 powder packet (Benefiber Clear Sugar Free(dextrin)) Allergies Allergy/AdvReac Type Severity Reaction Status Date / Time ketamine Allergy Intermediate BLURRY Verified 08/22/24 08:51 VISION Review of Systems Review of Systems: A 10 system review of systems was completed on the patient and is negative except for what is stated in the HPI. Nursing and ancillary documentation was reviewed. [facility] Past Medical History Medical History Age related osteoporosis Anemia Arthritis Bakers cyst Bilateral hand pain Diastolic dysfunction, left ventricle ORTEGA (dyspnea on exertion) Dyslipidemia Earache on left Edema of both legs Edema, lower extremity Effusion of knee joint right Elevated ALT measurement Elevated liver enzymes Essential (primary) hypertension External hemorrhoid Fatigue H/O adenomatous polyp of colon Hemorrhoids HTN (hypertension) Hyperglycemia Hyperlipidemia Increased BMI Labyrinthitis of both ears Left ear pain Nasal fracture Obesity Occult blood positive stool Osteopenia Other screening mammogram Polyosteoarthritis, unspecified Post-menopausal Rheumatoid arthritis Rheumatoid arthritis with rheumatoid factor of multiple sites without organ or systems involvement (~2017) Rheumatoid myopathy with rheumatoid arthritis Right ankle pain Right calf pain Right knee DJD Shingles Sinusitis SOB (shortness of breath) Vertigo Vitamin B 12 deficiency Vitamin D deficiency Wears glasses Surgical History Surgical History Colonoscopy planned History of back surgery History of eye surgery History of hysterectomy Skin cancer Family History Family History Sibling Family history of heart disease in male family member before age 55, Onset Age: 36 Family history of malignant neoplasm Mother Family history of malignant neoplasm of breast in first degree relative Family history of malignant neoplasm of ovary Hypertension Family history of malignant neoplasm Father Family history of throat cancer Family history of cardiovascular disease, Onset Age: 76 Family history of malignant neoplasm, Onset Age: 76 Other Diabetes mellitus HLD (hyperlipidemia) Social History Social History Social History: Patient drinks caffeine daily. Smoking status: Never smoker Second hand tobacco smoke exposure: No Alcohol intake: never Substance use: never Substance use type: does not use Current Housing: Decline to Answer Concerned About Future Housing: Decline to Answer Difficulty Paying Gas/Electric Bills: Decline to Answer Difficulty Paying for Meds: Decline to Answer Currently Unemployed: Decline to Answer Education: Decline to Answer Difficulty w/ Childcare or Family Care: Decline to Answer Living arrangements: alone Additional living arrangements comments: Patient is a . Occupation/Education: retired Gender identity (if verbalized by the patient): Female Sexual Orientation (if Verbalized by the Patient): Straight or Heterosexual Spiritual care concerns: No Exam Narrative: GENERAL: Well-appearing, well-nourished, and in no acute distress. HEAD: Normocephalic, atraumatic. EYES: PERRLA and EOMI. ENT: Nares clear, no rhinorrhea or epistaxis. Mucous membranes moist. NECK: Supple. CHEST: Clear to auscultation. No respiratory distress. HEART: Regular rate and rhythm. No murmur heard. Normal peripheral pulses. ABDOMEN: Soft, nontender, nondistended, normal active bowel sounds. EXTREMITIES: Normal range of motion there is an Mauri wrap present on the left elbow and my. No edema. SKIN: Warm, dry, no rash. NEURO: No focal deficits. Alert and oriented x3. PSYCH: Normal mood and affect. Course Vital Signs Vital signs: Vital Signs Temperature 36.5 C 08/27/24 21:22 Pulse Rate 91 08/27/24 21:22 Respiratory Rate 17 08/27/24 21:22 Blood Pressure 141/68 H 08/27/24 21:22 Pulse Oximetry 98 08/27/24 21:22 Oxygen Delivery Room Air 08/27/24 21:22 Temperature 36.5 C 08/27/24 21:22 Pulse Rate 76 08/28/24 02:16 Respiratory Rate 19 08/28/24 02:16 Blood Pressure 140/76 08/28/24 02:16 Pulse Oximetry 99 08/28/24 02:16 Oxygen Delivery Room Air 08/27/24 21:22 Medical Decision Making MDM Narrative Medical decision making narrative: Differential S includes dehydration, viral illness, urinary tract infection, pneumonia Laboratory studies did show a leukocytosis with a white count of 19.1 hemoglobin low at 10.3 electrolytes showed a sodium 130 potassium was 3.2 BUN was 26 and creatinine was 1.3 patient has a baseline creatinine of 0.8 urinalysis showed no evidence UTI EKG showed no acute ischemic changes and no evidence of dysrhythmia Chest x-ray showed no pneumonia Patient was found to be profoundly orthostatic patient received a L of normal saline and had improvement orthostatics a 2 L was given to the patient and this is resolved orthostatics. The patient is feeling much better at this time the patient reported that she had a that she needed to go to tomorrow and reports that she would ideally like to try outpatient therapy in discussion with the patient shared decision making the patient has chosen to go home at this time was instructed to return the emergency department if she has worsening symptoms. Vital Signs Vital Signs: Vital Signs Temperature 36.5 C 08/27/24 21: Pulse Rate 91 08/27/24 21:22 Respiratory Rate 17 08/27/24 21:22 Blood Pressure 141/68 H 08/27/24 21:22 Pulse Oximetry 98 08/27/24 21:22 Oxygen Delivery Room Air 08/27/24 21:22 Temperature 36.5 C 08/27/24 21:22 Pulse Rate 76 08/28/24 02:16 Respiratory Rate 19 08/28/24 02:16 Blood Pressure 140/76 08/28/24 02:16 Pulse Oximetry 99 08/28/24 02:16 Oxygen Delivery Room Air 08/27/24 21:22 Lab Data 08/27/24 21:36 08/27/24 21:36 Labs: Lab Results 08/27/24 Range/Units 21:36 WBC 19.1 H (4.5-10.0) K/mm3 RBC 2.85 L (4.2-5.4) M/mm3 Hgb 10.3 L (12.0-15.0) g/dL Hct 29.9 L (37.0-47.0) % MCV 104.9 H (80-100) fl MCH 36.1 H (26-34) pg MCHC 34.4 (32-36) g/dl RDW 15.2 H (11.5-14.5) % Plt Count 400 H (150-375) k/mm3 MPV 9.4 (7.4-10.4) fl Immature Gran % (Auto) 0.9 H (0-0.5) % Neut % (Auto) 82.0 H (45.5-73.1) % Lymph % (Auto) 9.2 L (18.3-44.2) % [place] % (Auto) 7.2 (2.6-8.5) % Eos % (Auto) 0.4 (0-4.4) % Baso % (Auto) 0.3 (0.2-1.2) % Lymph # (Auto) 1.77 (0.9-3.2) K/mm3 [place] # (Auto) 1.4 H (0.1-0.6) K/mm3 Eos # (Auto) 0.1 (0-0.3) K/mm3 Baso # (Auto) 0.1 (0.0-0.1) K/mm3 Abs Immat Gran (auto) 0.18 H (0.00-0.031) K/mm3 Absolute Neuts (auto) 15.7 H (1.3-6.7) K/mm3 Absolute Nucleated RBC 0.000 (0.0-0.012) K/mm3 Nucleated RBC % 0.0 (0.0-0.2) % Sodium 130 L (137-145) mmol/L Potassium 3.2 L (3.4-5.0) mmol/L Chloride 91 L (98-107) mmol/L Carbon Dioxide 30 (22-30) mmol/L Anion Gap 9 (4-12) mmol/L BUN 26 H D (7-17) mg/dL Creatinine 1.30 H (0.7-1.0) mg/dL Estim Creat Clear Calc 52 ml/min Estimated GFR 39 L (59 - ) Glucose 129 H (65-110) mg/dL Calcium 9.7 (8.4-10.2) mg/dL Total Bilirubin 0.8 (0.2-1.3) mg/dL AST 26 (14-36) U/L ALT 25 (6-35) U/L Alkaline Phosphatase 62 (38-126) U/L Total Protein 7.0 (6.3-8.2) g/dL Albumin 4.1 (3.5-5.1) g/dL Urine Color Yellow (Yellow) Urine Appearance Clear (Clear) Urine pH 7.5 (5.0-9.0) Ur Specific [place] 1.017 (1.001-1.035) Urine Protein Negative (Negative) mg/dL Urine Glucose (UA) Negative (Negative) mg/dL Urine Ketones Negative (Negative) mg/dL Ur Blood (Man) Negative (Negative) Urine Nitrate Negative (Negative) Urine Bilirubin Negative (Negative) Urine Urobilinogen 0.2 (<2.0) mg/dL Leukocyte Esterase Rfl Negative (Negative) ANDRES/UL Discharge Plan Discharge Clinical Impression: Syncope, Orthostatic hypotension Patient Disposition: Home, Self-Care Condition: Stable Instructions: Antibiotic Form, Dehydration (ED), Syncope (ED) Prescriptions: No Action aspirin 81 mg capsule,delayed release(DR/EC) 81 mg PO DAILY ascorbate calcium (vitamin C) 500 mg tablet 500 mg PO DAILY cholecalciferol (vitamin D3) 2,000 unit tablet 2,000 unit PO DAILY Benefiber Clear SF (dextrin) 3 gram/3.5 gram powder in packet See Rx Instructions .ROUTE .COMPLEX Rx Instructions: take by oral route daily ; methotrexate sodium 2.5 mg tablet See Rx Instructions .ROUTE .COMPLEX Qty: 48 1RF Dose Instruction: TAKE 4 TABLETS (10 MG) EVERY WEEK Rx Instructions: TAKE 4 TABLETS (10 MG) EVERY WEEK folic acid 1 mg tablet 2 mg PO DAILY Qty: 180 1RF Rinvoq 15 mg tablet extended release 24 hr 15 mg PO DAILY Qty: 30 11RF alendronate 70 mg tablet See Rx Instructions .ROUTE .COMPLEX Qty: 12 3RF Dose Instruction: TAKE 1 TABLET WEEKLY Rx Instructions: TAKE 1 TABLET WEEKLY ezetimibe 10 mg tablet See Rx Instructions .ROUTE .COMPLEX Qty: 90 3RF Dose Instruction: TAKE 1 TABLET DAILY Rx Instructions: TAKE 1 TABLET DAILY losartan-hydrochlorothiazide 100-25 mg tablet See Rx Instructions .ROUTE .COMPLEX Qty: 90 2RF Dose Instruction: TAKE 1 TABLET DAILY Rx Instructions: TAKE 1 TABLET DAILY amlodipine 5 mg tablet See Rx Instructions .ROUTE .COMPLEX Qty: 90 2RF Dose Instruction: TAKE 1 TABLET DAILY Rx Instructions: TAKE 1 TABLET DAILY valacyclovir 500 mg tablet See Rx Instructions .ROUTE .COMPLEX Qty: 180 3RF Dose Instruction: TAKE 1 TABLET EVERY 12 HOURS Rx Instructions: TAKE 1 TABLET EVERY 12 HOURS pravastatin 10 mg tablet See Rx Instructions .ROUTE .COMPLEX Qty: 90 2RF Hold Instructions: .Provider Order Dose Instruction: TAKE 1 TABLET DAILY Rx Instructions: TAKE 1 TABLET DAILY Follow-up/Referrals: Darius Novoa MD [Primary Care Provider] - Time of Disposition: 03:14
[2024-08-28 02:16] VITALS: BP 140/76; PULSE 76; RESP 19; O2SAT 99
--- NOTE | 2024-08-28 02:17 | PC.NURSE ---
0200 lying 128/66 98% RA HR 84 RR 17 0205 sitting 127/67 97% RA HR 85 RR18 0210 standing 94/50 98% RA HR 106 RR15
--- NOTE | 2024-08-28 03:10 | PC.NURSE ---
Lying 132/64 100%RA HR76 RR17 Sitting 136/73 100% RA HR79 RR16 Standing 135/69 100% RA HR90 RR[address] Ann made aware
[2024-08-28 03:48] VITALS: BP 135/78; PULSE 78; RESP 16; O2SAT 97
== END 2024-08-28 03:51 | disposition home or self-care (01) ==
PROVIDERS: Emergency Provider Emergency Medicine; PCP Emergency Medicine
DX: I95.1 Orthostatic hypotension (principal); I11.9 Hypertensive heart disease without heart failure; E78.5 Hyperlipidemia, unspecified; E53.8 Deficiency of other specified B group vitamins; E55.9 Vitamin D deficiency, unspecified; D64.9 Anemia, unspecified; M85.80 Other specified disorders of bone density and structure, unspecified site; M05.79 Rheumatoid arthritis with rheumatoid factor of multiple sites without organ or systems involvement; M17.11 Unilateral primary osteoarthritis, right knee; Z86.0101 Personal history of adenomatous and serrated colon polyps; Z85.828 Personal history of other malignant neoplasm of skin; Z90.710 Acquired absence of both cervix and uterus; Z79.82 Long term (current) use of aspirin; Z79.899 Other long term (current) drug therapy; Z79.622 Long term (current) use of Janus kinase inhibitor; I45.10 Unspecified right bundle-branch block; R94.31 Abnormal electrocardiogram [ECG] [EKG]
CPT/HCPCS: 36415; 71046; 73090; 73562; 80053; 81003; 85025; 93005; 96360; 96361; 99284; J7030

== ENCOUNTER 2024-09-09 10:48 | Outpatient (CLI) | payer MEDICARE, SELFPAY ==
--- NOTE | ~2024-09-09 | XR_ITS ---
EXAMINATION: XR ankle RT 2V, XR foot RT 2V DATE: 09/09/2024 11:14 INDICATION: Right foot and ankle pain post fall TECHNIQUE: 1. Anteroposterior and lateral view of the right ankle were obtained. 2. Dorsoplantar and lateral views of the right foot were obtained. COMPARISON: None. FINDINGS: Old healed fracture deformity at the metadiaphyseal region of the distal right femur which remains in near-anatomic alignment. No acute traumatic malalignment. No acute fracture. Mild polyarticular oste oarthritis at the right ankle and involving multiple joints throughout the right foot. Small Achilles and plantar calcaneal spurs with scattered enthesopathic ossifications at multiple sites of pigmente d second tenderness attachment including along the medial and lateral malleoli, along the spring liga ment complex, the distal Achilles tendon, plantar aponeurosis and along the dorsal margins of multipl e tarsal bones. There is diffuse subcutaneous edema about the distal lower leg and ankle with more fo otto soft tissue swelling overlying the lateral malleolus. IMPRESSION: 1. Old healed distal fibular fracture. No acute osseous abnormality. 2. Scattered degenerative skeletal changes including mild polyarticular osteoarthritis throughout the right foot and extensive scattered chronic enthesopathic changes. Reviewed, dictated and finalized at location B. 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 Old healed distal fibular fracture. No acute osseous abnormality. 2. Scattered degenerative skeletal changes including mild polyarticular osteoar thritis throughout the right foot and extensive scattered chronic enthesopathic changes.
== END 2024-09-09 10:49 | disposition home or self-care (01) ==
PROVIDERS: PCP Emergency Medicine; Visit Provider Emergency Medicine
DX: M19.071 Primary osteoarthritis, right ankle and foot (principal); Z87.81 Personal history of (healed) traumatic fracture
CPT/HCPCS: 73600; 73620

== ENCOUNTER 2024-09-09 16:03 | Outpatient (CLI) | payer MEDICARE, OTHER, SELFPAY ==
--- NOTE | ~2024-09-09 | US_ITS ---
EXAMINATION: US venous doppler LE RT DATE: 09/09/2024 17:09 INDICATION: Pain and swelling within the right lower extremity TECHNIQUE: Grayscale ultrasound images without and with compression and Doppler ultrasound images of the right lower extremity veins were obtained. COMPARISON: None. FINDINGS: Noncompressibility and absence of flow is identified within the right peroneal vein. The visualized portions of right common femoral vein, profunda (deep) femoral vein, femoral vein, pop liteal vein, posterior tibial vein, and greater saphenous vein outflow are patent. IMPRESSION: DVT of the right peroneal vein. Reviewed, dictated and finalized at location A. K WORKER
== END 2024-09-09 16:04 | disposition home or self-care (01) ==
LOC: ANHIMG 16:04
PROVIDERS: PCP Emergency Medicine; Visit Provider Emergency Medicine
DX: I82.451 Acute embolism and thrombosis of right peroneal vein (principal)
CPT/HCPCS: 93971

== ENCOUNTER 2024-09-11 08:32 | Outpatient (CLI) | payer MEDICARE, OTHER, SELFPAY ==
--- NOTE | 2024-09-11 08:45 | ECHO_ITS ---
Patient Info Name: Preethi Casas Age: 79 years : 1945 Gender: Female Ht: 60 in Wt: 180 lbs BSA: 1.90 m2 HR: 92 bpm BP: 144 / 83 mmHg Heart Rhythm: Sinus Rhythm Technical Quality: Fair Exam Date: 09/11/2024 8:50 AM Exam Location: Echo Lab Patient Status: Outpatient Admit Date: 09/11/2024 Staff Ordering Physician: Darius Novoa MD Resistor Inspector: Tena Baptiste RDCS Attending Provider: Darius Novoa MD Referring Physician: Sommer KULKARNI; Exam Type: CA echo doppler color flow Study Info Indications R06.09 - Other forms of dyspnea Complete two-dimensional, color flow and Doppler transthoracic echocardiogram is performed. Summary 1. Complete two-dimensional, color flow and Doppler transthoracic echocardiogram is performed. 2. Left ventricular chamber dimension is normal. 3. Left ventricular systolic function is normal, estimated at 65-70%. 4. The left ventricular diastolic function is grade I diastolic dysfunction. 5. E/e' 10 is mildly elevated. 6. There is trace mitral valve regurgitation. 7. No pulmonary hypertension, estimated pulmonary arterial systolic pressure is 30 mmHg. Left Ventricle E/e' 10 is mildly elevated. Left ventricular chamber dimension is normal. Left ventricular systolic function is normal, estimated at 65-70%. The left ventricular diastolic function is grade I diastolic dysfunction. Right Ventricle Right ventricular systolic function is normal and with normal TAPSE 2.3 cm. Right ventricular chamber dimension is normal. Left Atria Left atrial chamber dimension is normal. Right Atria Right atrial chamber dimension is normal. Aortic Valve The aortic valve is trileaflet. There is no aortic valve stenosis. There is no aortic valve regurgitation. Pulmonic Valve There is no pulmonic regurgitation. Mitral Valve There is no mitral valve stenosis. There is trace mitral valve regurgitation. Tricuspid Valve There is no tricuspid valve regurgitation. No pulmonary hypertension, estimated pulmonary arterial systolic pressure is 30 mmHg. Pericardium/Pleural There is no pericardial effusion. Inferior Vena Cava Normal inferior vena cava with >50% collapse upon inspiration consistent with normal right atrial pressure, 5 mmHg. Aorta The aortic root size at the sinus of Valsalva is normal. Left Ventricular Outflow Tract Name Value Normal LVOT 2D LVOT Diameter 2.0 cm LVOT Doppler LVOT Peak Gradient 7 mmHg LVOT Mean Gradient 4 mmHg LVOT VTI 28 cm LVOT VTI/AV VTI Ratio 0.8 LVOT Stroke Volume 83 ml LVOT CO 6.1 l/min LVOT CI 3.2 l/min/m2 Pulmonic Valve Name Value Normal RVOT Doppler RVOT Peak Gradient 3 mmHg PV Doppler PV Peak Gradient 4 mmHg Mitral Valve Name Value Normal MV Doppler MV Decel [place] 397 cm/s2 MV PHT 55 ms MV Area (PHT) 4.0 cm2 4.0-5.0 MV Diastolic Function MV E Peak Velocity 75 cm/s MV A Peak Velocity 84 cm/s MV E/A 0.9 MV Decel Time 189 ms MV Annular TDI MV E/e' (Septal) 11.3 <=8.0 MV E/e' (Lateral) 9.3 <=8.0 MV E/e' (Average) 10.3 Tricuspid Valve Name Value Normal TV Regurgitation Doppler TR Peak Velocity 249 cm/s TR Peak Gradient 25 mmHg Estimated PAP/RSVP RA Pressure 5 mmHg <=5 PA Systolic Pressure 30 mmHg <36 RV Systolic Pressure 30 mmHg <36 Aorta Name Value Normal Ascending Aorta Ao Root Diameter (MM) 3.2 cm Ao Root Diam Index (MM) 1.7 cm/m2 Aortic Valve Name Value Normal AV Doppler AV Peak Velocity 191 cm/s AV Peak Gradient 15 mmHg AV Mean Gradient 6 mmHg AV VTI 34 cm AV Area (Cont Eq VTI) 2.4 cm2 >=3.0 AV Area (Cont Eq Wing) 2.1 cm2 AV Regurgitation 2D LVOT Area 3.0 cm2 Ventricles Name Value Normal LV Dimensions 2D/MM IVS Diastolic Thickness (2D) 0.9 cm 0.6-1.0 LVID Diastole (2D) 4.3 cm 3.8-5.2 LVIW Diastolic Thickness (2D) 0.9 cm 0.6-0.9 LVID Systole (2D) 2.6 cm 2.2-3.5 LVOT Diameter 2.0 cm LV Mass (2D Cubed) 119.46 g 67.00-162.00 LV Mass Index (2D Cubed) 63 g/m2 43-95 Relative Wall Thickness (2D) 0.43 LV Fractional Shortening/Ejection Fraction 2D/MM LV Fractional Shortening (2D) 39 % 27-45 LV EF (2D Teicholz) 70 % 54-74 LV Diastolic Volume (4C MOD) 64 ml LV EF (4C MOD) 73 % LV Diastolic Volume (2C MOD) 29 ml LV EF (2C MOD) 68 % LV Diastolic Volume (BP MOD) 44 ml 46-106 LV Diastolic Volume Index (BP MOD) 23 ml/m2 29-61 LV Systolic Volume (BP MOD) 13 ml 14-42 LV Systolic Volume Index (BP MOD) 7 ml/m2 8-24 LV EF (BP MOD) 71 % 54-74 LV Diastolic Length (4C) 7.8 cm LV Systolic Length (4C) 5.7 cm LV Stroke Volume (4C MOD) 47 ml Atria Name Value Normal LA Dimensions LA Dimension (MM) 4.3 cm 2.7-3.8 LA Volume (4C A-L) 39 ml LA Volume (BP A-L) 37 ml RA Dimensions RA Area (4C) 12.7 cm2 <=18.0 Report Signatures
== END 2024-09-11 08:33 | disposition home or self-care (01) ==
LOC: ANHCARD 08:33
PROVIDERS: PCP Emergency Medicine; Visit Provider Emergency Medicine
DX: R06.09 Other forms of dyspnea (principal); G45.9 Transient cerebral ischemic attack, unspecified; I51.89 Other ill-defined heart diseases
CPT/HCPCS: 93306

== ENCOUNTER 2024-10-29 15:46 | Emergency (ER) | payer MEDICARE, OTHER, SELFPAY ==
--- NOTE | 2024-10-29 15:56 | ED.FEMALEGU ---
HPI - Female Genitourinary General Chief complaint: Urogenital-Female Stated complaint: uti Time Seen by Provider: 10/29/24 15:57 Source: patient, RN notes reviewed and old records reviewed Mode of arrival: ambulatory Limitations: no limitations History of Present Illness HPI Narrative: A 1-year-old female presents to the [facility] with increased cloudiness, burning with urination for couple of days. States that she has had 3 UTIs in the last month and a half. Per medical record has had 1 on the 11 September 2020 03 of September, 07 of October. Treated with antibiotics all 3 times. Patient reports the last 1 she did get better for a little while, symptoms returned again. Denies any fevers, CVA tenderness or abdominal pain. No nausea or vomiting. No culture was sent, culture sent for sensitivity this time Related Data Home Medications ?Medication ?Instructions ?Recorded ?Confirmed ?Last Taken ?Type ascorbate calcium (vitamin C) 500 500 mg PO DAILY 10/02/19 10/29/24 05/15/21 History mg tablet cholecalciferol (vitamin D3) 50 2,000 unit PO DAILY 10/02/19 10/29/24 05/15/21 History mcg (2,000 unit) tablet wheat dextrin 3 gram/3.5 gram oral See Rx Instructions .Route .COMPLEX 10/02/19 10/29/24 05/15/21 History powder packet (Benefiber Clear Sugar Free(dextrin)) Allergies Allergy/AdvReac Type Severity Reaction Status Date / Time ketamine Allergy Intermediate BLURRY Verified 10/29/24 16:05 VISION Review of Systems Review of Systems: All systems reviewed & are unremarkable except as noted in HPI and below Constitutional: Constitutional: Reports no additional constitutional complaints ENT: Reports system reviewed and no additional complaints, except as documented Cardiovascular: Cardiovascular: Reports no additional cardiovascular complaints, Denies chest pain and Denies dyspnea Respiratory: Respiratory: Reports no additional respiratory complaints, Denies chest congestion, Denies cough and Denies dyspnea Genitourinary: Genitourinary: Reports as per HPI Musculoskeletal: Musculoskeletal: Reports no additional musculoskeletal complaints Integumentary/Breasts: Skin/Breast: Reports system reviewed and no additional complaints, except as docu [facility] Past Medical History Medical History Right ankle pain Rheumatoid myopathy with rheumatoid arthritis Rheumatoid arthritis Osteopenia Fatigue Vertigo SOB (shortness of breath) Polyosteoarthritis, unspecified Occult blood positive stool Labyrinthitis of both ears Hyperglycemia H/O adenomatous polyp of colon External hemorrhoid Essential (primary) hypertension Elevated liver enzymes Elevated ALT measurement Edema, lower extremity Earache on left Dyslipidemia ORTEGA (dyspnea on exertion) Diastolic dysfunction, left ventricle Age related osteoporosis Effusion of knee joint right Sinusitis Left ear pain Arthritis Wears glasses Right knee DJD Bakers cyst Right calf pain Hemorrhoids Anemia Bilateral hand pain Nasal fracture Increased BMI Post-menopausal Other screening mammogram Hyperlipidemia Vitamin D deficiency Rheumatoid arthritis with rheumatoid factor of multiple sites without organ or systems involvement (~2017) Shingles Obesity Edema of both legs Vitamin B 12 deficiency HTN (hypertension) Surgical History Surgical History Colonoscopy planned History of eye surgery History of back surgery History of hysterectomy Skin cancer Family History Family History Sibling Family history of heart disease in male family member before age 55, Onset Age: 36 Family history of malignant neoplasm Mother Family history of malignant neoplasm of breast in first degree relative Family history of malignant neoplasm of ovary Hypertension Family history of malignant neoplasm Father Family history of throat cancer Family history of cardiovascular disease, Onset Age: 76 Family history of malignant neoplasm, Onset Age: 76 Other Diabetes mellitus HLD (hyperlipidemia) Social History Social History Social History: Patient drinks caffeine daily. Smoking status: Never smoker Second hand tobacco smoke exposure: No Alcohol intake: never Substance use: never Substance use type: does not use Current Housing: Decline to Answer Concerned About Future Housing: Decline to Answer Difficulty Paying Gas/Electric Bills: Decline to Answer Difficulty Paying for Meds: Decline to Answer Currently Unemployed: Decline to Answer Education: Decline to Answer Difficulty w/ Childcare or Family Care: Decline to Answer Living arrangements: alone Additional living arrangements comments: Patient is a . Occupation/Education: retired Gender identity (if verbalized by the patient): Female Sexual Orientation (if Verbalized by the Patient): Straight or Heterosexual Spiritual care concerns: No Comments At the time of my signature, I reviewed and agree with the nursing past medical, surgical, social, and family history. There is no relevant family history pertinent to the patient complaint. Exam Const: General: cooperative, healthy appearing, comfortable, no acute distress, well developed, alert and well nourished Nutritional Appearance: well nourished Orientation/consciousness: patient oriented x3 Limitations: no limitations HENMT: Head: normal to inspection Eyes: General: appearance normal, both eyes and all related structures Alignment and Position: alignment normal Neck: Neck: normal visual inspection, full ROM, no lymphadenopathy and no meningeal signs Chest: Chest palpation & inspection: normal inspection of the chest Resp: Effort & Inspection: normal respiratory effort and able to speak in complete sentences Cardio: Rate: regular rate GI: GI Palp: No abdominal tenderness : General: Yes no CVA tenderness Skin: General skin exam: normal color and no rashes or lesions noted Neuro: General: patient oriented x3, gait normal, moves all extremities and no meningeal signs Cognition (Neuro): normal cognition Speech: normal speech Gait exam (Neuro): Normal gait present Extrem: General: normal to inspection, full ROM, capillary refill normal and normal gait Psych: Appearance: grossly normal and well kempt Mental Status: mental status grossly normal Speech and movement: Normal speech and movement present and Clear speech present Affect: normal affect Attitude: cooperative Course Course Level of Care: Express Care Visit Vital Signs Vital signs: Vital Signs Temperature 96.9 F L 10/29/24 15:59 Pulse Rate 91 10/29/24 15:59 Respiratory Rate 18 10/29/24 15:59 Blood Pressure 169/80 H 10/29/24 15:59 Pulse Oximetry 100 10/29/24 15:59 Oxygen Delivery Room Air 10/29/24 15:59 Temperature 96.9 F L 10/29/24 15:59 Pulse Rate 91 10/29/24 15:59 Respiratory Rate 18 10/29/24 15:59 Blood Pressure 169/80 H 10/29/24 15:59 Pulse Oximetry 100 10/29/24 15:59 Oxygen Delivery Room Air 10/29/24 15:59 Reviewed MDM - Female Genitourinary MDM Narrative Medical decision making narrative: Patient sitting comfortably in exam room. Nontoxic, vitals stable. Patient in no acute distress Patient presents with urinary symptoms. Positive leukocytes, will treat with antibiotic. Will send for culture. Encouraged patient to follow-up with primary care provider due to frequency of UTIs. Patient appropriate for outpatient treatment with strict signs and symptoms go the emergency room discussed. Discharge instructions reviewed with patient, as well as provided in writing per nursing staff. The instructions also include specific and strict return/GO TO THE ER as well as f/u information. All questions have been answered, and the patient deny any further questions with discharge and discharge plan. Some parts of this dictation were generated by voice recognition software and may contain typographical and/or grammatical inaccuracies. Differential Diagnosis Differential diagnosis: Likely urinary tract infection and cystitis Lab Data Labs: Lab Results 10/29/24 Range/Units 16:09 POC Urine Color Yellow POC Urine Clarity Cloudy POC Urine pH 7.0 POC Ur Specif [place] 1.015 POC Urine Protein Negative (Negative) POC Ur Glucose (UA) Negative (Negative) POC Urine Ketones Negative (Negative) POC Urine Blood 2+ (Negative) POC Urine Nitrite Negative (Negative) POC Urine Bilirubin Negative (Negative) POC Urine Urobilinogen 0.2 POC U Leukocyte Esteras 2+ (Negative) Reviewed Critical Care Time Critical Care Time Critical Care Time: No Discharge Plan Discharge Clinical Impression: Urinary tract infection Qualifiers: Urinary tract infection type: acute cystitis Hematuria presence: with hematuria Qualified Code(s): N30.01 - Acute cystitis with hematuria Patient Disposition: Home, Self-Care Condition: Stable Instructions: Antibiotic Form, Urinary Tract Infection in Women (DC) Additional Instructions: Increased water intake Take Tylenol as needed for pain Take antibiotic as prescribed Today your urine dip showed a probability of a UTI. You have been prescribed an antibiotic. Your urine will be sent to our lab for a culture. If at that time a bacteria grows that is not covered by the antibiotic prescribed you will be notified. Follow-up with primary care For new or worsening symptoms go directly to the emergency room Patient Language: Czech Prescriptions: New cefuroxime axetil 500 mg tablet 500 mg PO BID Qty: 10 0RF No Action ascorbate calcium (vitamin C) 500 mg tablet 500 mg PO DAILY cholecalciferol (vitamin D3) 2,000 unit tablet 2,000 unit PO DAILY Benefiber Clear SF (dextrin) 3 gram/3.5 gram powder in packet See Rx Instructions .ROUTE .COMPLEX Rx Instructions: take by oral route daily ; methotrexate sodium 2.5 mg tablet See Rx Instructions .ROUTE .COMPLEX Qty: 48 1RF Dose Instruction: TAKE 4 TABLETS (10 MG) EVERY WEEK Rx Instructions: TAKE 4 TABLETS (10 MG) EVERY WEEK folic acid 1 mg tablet 2 mg PO DAILY Qty: 180 1RF losartan 25 mg tablet 25 mg PO DAILY Qty: 90 2RF Rinvoq 15 mg tablet extended release 24 hr 15 mg PO DAILY Qty: 30 11RF alendronate 70 mg tablet See Rx Instructions .ROUTE .COMPLEX Qty: 12 3RF Dose Instruction: TAKE 1 TABLET WEEKLY Rx Instructions: TAKE 1 TABLET WEEKLY ezetimibe 10 mg tablet See Rx Instructions .ROUTE .COMPLEX Qty: 90 3RF Dose Instruction: TAKE 1 TABLET DAILY Rx Instructions: TAKE 1 TABLET DAILY amlodipine 5 mg tablet See Rx Instructions .ROUTE .COMPLEX Qty: 90 2RF Dose Instruction: TAKE 1 TABLET DAILY Rx Instructions: TAKE 1 TABLET DAILY valacyclovir 500 mg tablet See Rx Instructions .ROUTE .COMPLEX Qty: 180 3RF Dose Instruction: TAKE 1 TABLET EVERY 12 HOURS Rx Instructions: TAKE 1 TABLET EVERY 12 HOURS pravastatin 10 mg tablet See Rx Instructions .ROUTE .COMPLEX Qty: 90 2RF Dose Instruction: TAKE 1 TABLET DAILY Rx Instructions: TAKE 1 TABLET DAILY Xarelto 20 mg tablet 20 mg PO DAILY Qty: 90 2RF Rx Instructions: To start after 15mg BID RX Follow-up/Referrals: Darius Novoa MD [Primary Care Provider] - 3 Days ([facility] follow-up, UTI, blood pressure check, 169/80) Time of Disposition: 16:21
[2024-10-29 15:59] VITALS: BP 169/80; PULSE 91; RESP 18; TEMP 36.1; O2SAT 100
[2024-10-29 16:12] LABS: EDUAAPPEAR Cloudy; EDUABILI Negative (Negative); EDUABLOOD 2+ (Negative); EDUACOLOR1 Yellow; EDUAGLUCOSE Negative (Negative); EDUAKETONE Negative (Negative); EDUALEUKO 2+ (Negative); EDUANITRATE Negative (Negative); EDUAPROTEIN Negative (Negative); EDUASPGRAVITY 1.015; EDUAUROBILI 0.2
== END 2024-10-29 16:22 | disposition home or self-care (01) ==
PROVIDERS: Emergency Provider Nurse Practitioner; PCP Emergency Medicine
DX: N30.01 Acute cystitis with hematuria (principal); B96.20 Unspecified Escherichia coli [E. coli] as the cause of diseases classified elsewhere; I10 Essential (primary) hypertension; M05.40 Rheumatoid myopathy with rheumatoid arthritis of unspecified site; M85.80 Other specified disorders of bone density and structure, unspecified site; E78.5 Hyperlipidemia, unspecified; E66.9 Obesity, unspecified; Z68.30 Body mass index [BMI] 30.0-30.9, adult
CPT/HCPCS: 81003; 87077; 87086; 87186; 99213; G0463

== ENCOUNTER 2024-11-20 07:55 | Outpatient (CLI) | payer MEDICARE, OTHER, SELFPAY ==
--- NOTE | ~2024-11-20 | NM_ITS ---
EXAMINATION: NM vivian stress w perfusion DATE: 11/20/2024 10:27 INDICATION: Other forms of dyspnea TECHNIQUE: Rest images were obtained following intravenous administration of 10.8 mCi Tc99m tetrofosm in (Myoview). The patient was infused intravenously with Lexiscan (Regadenoson). Then, 34.7 mCi Tc99m tetrofosmin (Myoview) was administered intravenously, and stress images were obtained. Data was jaylene nstructed into short axis and horizontal and vertical long axis SPECT images. Gated SPECT images were also obtained. COMPARISON: None. FINDINGS: Small focus of mild reversible decreased activity consistent with ischemia at the mid anter olateral segment. No definitive perfusion defects on the rest imaging to suggest infarct. There is no rmal left ventricular chamber size, wall motion and ejection fraction. Left ventricular ejection fra ction measures >70%. IMPRESSION: 1. Small focus of reversible mild ischemia at the mid anterolateral segment. 2. Left ventricular ejection fraction measuring >70%. Reviewed, dictated and finalized at location A. [facility]
--- NOTE | 2024-11-20 08:32 | EST_ITS ---
Patient Info Name: Preethi Casas Age: 79 years : 1945 Gender: Female Ht: 64 in Wt: 286 lbs BSA: 2.50 m2 HR: 88 bpm BP: 155 / 76 mmHg Exam Date: 11/20/2024 9:10 AM Exam Location: [facility] Patient Status: Outpatient Admit Date: 11/20/2024 Staff Ordering Physician: Fernanedz Nunez DO Attending Provider: Fernandez Nunez DO Exercise Technologist: Tena Baptiste RDCS Exercise Physician: Fernandez Nunez DO Exam Type: CA stress vivian w NM Study Info A regadenoson stress test was performed. Summary 1. 1. Negative lexiscan stress test for ischemic ST changes by ECG criteria. 2. 2. Baseline hypertension. 3. 3. Nuclear scan to follow and will be reported separately. Please correlate with it. 4. 4. Patient informed of the above results. Protocol: Lexiscan Stress ECG Details Stage: REST Duration (min): 1 min : 0 sec HR (bpm): 87 SBP (mmHg): 155 DBP (mmHg): 76 Stage: REST Duration (min): 4 min : 47 sec HR (bpm): 87 SBP (mmHg): 155 DBP (mmHg): 76 Stage: STAGE 1 Duration (min): 0 min : 59 sec HR (bpm): 100 SBP (mmHg): 158 DBP (mmHg): 53 Stage: RECOVERY Duration (min): 1 min : 0 sec HR (bpm): 97 SBP (mmHg): 158 DBP (mmHg): 53 Stage: RECOVERY Duration (min): 2 min : 0 sec HR (bpm): 85 SBP (mmHg): 158 DBP (mmHg): 53 Stage: RECOVERY Duration (min): 3 min : 0 sec HR (bpm): 97 SBP (mmHg): 141 DBP (mmHg): 66 Stage: RECOVERY Duration (min): 3 min : 2 sec HR (bpm): 97 SBP (mmHg): 141 DBP (mmHg): 66 Rest HR: 87 bpm Peak HR: 101 bpm Rest Sys BP: 155 mmHg Peak Sys BP: 158 mmHg Max Pred HR: 139 bpm % Max Pred HR: 73 % Target HR: 118 bpm Max RPP: 15,958 bpm*mmHg Termination Reason: Completed protocol Cardiac Symptoms: Shortness of breath Total Time: 1 min : 0 sec Rest Enriquez BP: 76 mmHg Peak Enriquez BP: 53 mmHg Total Dose: 0.4 mg Resting ECG Sinus rhythm. Stress ECG No ST changes. Arrhythmias None. Report Signatures
--- OUTSIDE RECORDS SUMMARY | 2024-11-21 21:28 | XMS_ITS | Clinical Summary ---
Author Organization [facility] Address [address] [place] [phone] Care Team Providers Care Lumber Stacker Driver Name Role Phone Darius Novoa MD Primary Care Provide r Allergies Active Allergy Reactions Criticality Noted Date Comments Ketamine Dizziness,Unknown Low 04/11/2016 Medications valACYclovir (VALTREX) 500 mg tablet 05/14/2024 Active pravastatin (PRAVACHOL) 10 mg tablet Take 1 tablet (10 mg total) by mouth daily Active losartan-hydroch lorothiazide (HYZAAR) 100-25 mg per tablet 05/15/2024 Activ e ezetimibe (ZETIA) 10 mg tablet 06/22/2024 Active docusate sodium (COLACE) 100 mg capsule Take 1 capsule (100 mg total) by mouth 2 (two) times a day as needed Active ascorbic acid (VITAMIN C) 100 mg tablet Take 5 tablets (500 mg total) by mouth daily Active aspirin 81 mg enteric coated tablet Take 1 tablet (81 mg total) by mouth daily Active amLODIPine (NORVASC) 10 mg tablet Take 0.5 tablets (5 mg total) by mouth daily Active alendronate (FOSAMAX) 70 mg tablet 06/26/2024 Active acetaminophen (TYLENOL) 325 mg tablet Take 2 tablets (650 mg total) by mouth every 6 (six) hours as needed Active Rinvoq 15 mg tablet extended release 24 hrIndications:Rh eumatoid Arthritis Take 15 mg by mouth daily 90 tablet 1 08/02/2024 Active methotrexate 2.5 mg tabletIndication s:Rheumatoid Arthritis Take 4 tablets (10 mg total) by mouth once a week 48 tablet 1 08/02/2024 Active folic acid (FOLVITE) 1 mg tabletIndication s:Rheumatoid arthritis, involving unspecified site, unspecified whether rheumatoid factor present (HCC),High risk medication use Take 1 tablet (1 mg total) by mouth daily 90 tablet 1 08/02/2024 Active Xarelto 20 mg tablet Take 1 tablet (20 mg total) by mouth 09/10/2024 Active sulfamethoxazole -trimethoprim (BACTRIM DS) 800-160 mg per tablet Take 1 tablet by mouth every 12 (twelve) hours 10/07/2024 Active Active Problems Problem Noted Date Diagnosed Date Seropositive rheumatoid arthritis 10/14/2024 Encounters Date Type Department Care Team Description 11/05/2024 Orders Only [address] [address] Beth Leo RN 10/15/2024 Orders Only [facility] [address] [facility] [address] 5th [place] [address] [place] [phone] Kaur Pitts MD 10/14/2024 10:10 AM [employer] Lab [facility] [address] [place] [address] [address] [place] [phone] 10/14/2024 10:05 AM [employer] - 10/14/2024 11:59 PM [employer] Hospital Encounter [facility] [address] [place] [address] Rheumatoid arthritis, involving unspecified site, unspecified whether rheumatoid factor present (HCC); High risk medication use; Vitamin D deficiency, unspecified Discharge Disposition: Discharge to home or self care 10/14/2024 9:30 AM [employer] Office Visit [facility] [address] [place] [address] [address] [place] [phone] Kaur Pitts MD Rheumatoid arthritis, involving unspecified site, unspecified whether rheumatoid factor present (HCC) (Primary Dx); High risk medication use; Vitamin D deficiency, unspecified 10/14/2024 Telephone [facility] [address] [place] [address] [address] [place] [phone] Kaur Pitts MD Prior Auth (Infliximab) 09/11/2024 Orders Only [facility] Scanning, Provider 09/09/2024 Orders Only [facility] Scanning, Provider from Last 3 Months Surgical History Surgery Date Site/Laterality Comments REFRACTIVE SURGERY 01/29/2012 - 02/27/2012 Left REFRACTIVE SURGERY 01/29/2012 - 02/27/2012 Right COLONOSCOPY 07/19/2007 COLONOSCOPY 05/08/2012 HYSTERECTOMY 09/29/1992 - 10/29/1992 left ovary BACK SURGERY 02/27/1993 - 03/29/1993 Medical History Medical History Date Comments Rheumatoid arthritis (HCC) 10/1991 Hypertension High cholesterol Osteoarthritis Osteoporosis Anemia Cataract 12/1999 Right eye Skin cancer 07/1998 Not melanoma 199 8-now Cataract 07/2000 left eye Fatigue with tiredness Sleeping difficulty Hair loss Numbness and tingling Joint problem Knees, ankles, h ands Dry mouth Blurred vision Back pain Muscle weakness Morning stiffness of joints Family History Medical History Relation Name Comments Other Brother heart problems Melanoma Father Other Father heart problems Arthritis Mother Cancer Mother Other Mother Heart problems Cancer Sister Relation Name Status Comments Brother Father Mother Sister Social History Tobacco Use Types Packs/Day Years Used Date Smoking Tobacco: Never Smokeless Tobacco: Never Tobacco Cessation:Counseling Given: No Comments Unknown Sex and Gender Information Value Date Recorded Sex Assigned at Not on file Legal Sex Female 11:30 PM [employer] Gender Identity Not on file Sexual Orientation Not on file Obstetrics History Last Filed Vital Signs Vital Sign Reading Time Taken Comments Blood Pressure 149/76 10/14/2024 9:31 AM [employer] Pulse 103 10/14/2024 9:31 AM [employer] Temperature 36.7 ??C (98 ??F) 10/14/2024 9:31 AM [employer] Respiratory Rate - - Oxygen Saturation 97% 10/14/2024 9:31 AM [employer] Inhaled Oxygen Concentration - - Weight 83.6 kg (184 lb 6.4 oz) 10/14/2024 9:31 A M [employer] Height 163.8 cm (5' 4.5 ) 10/14/2024 9:31 AM [employer] Body Mass Index 31.16 10/14/2024 9:31 AM [employer] Plan of Treatment Health Maintenance Due Date Last Done Comments Depression Screening 1945 Fall Risk Assessment 1945 Osteoporosis Screening-Bone Density Scan 1945 DTaP/Tdap/Td Vaccine (1 - Tdap) 1954 Zoster Vaccine (1 of 2) 1962 Well Visit 65+ 01/04/2008 Covid-19 Vaccine (6 - 2023-2 5 season) 2024 08/05/2023, 08/08/2022, 07/07/2021, Additional history exists Influenza Vaccine (#1) 2024 , 08/16/2021, 06/26/2020, Additional history exists Pneumococcal vaccine 65+ Completed 07/16/2023 Hepatitis B Screening Completed 07/15/2024 Procedures Procedure Name Priority Date/Time Associated Diagnosis Comments EGFR Routine 10/14/2024 10:05 AM [employer] Rheumatoid arthritis, involving unspecified site, unspecified whether rheumatoid factor present (HCC) High risk medication use DIFFERENTIAL AUTO Routine 10/14/2024 10: 05 AM [employer] Rheumatoid arthritis, involving unspecified site, unspecified whether rheumatoid factor present (HCC) High risk medication use VITAMIN D 25 HYDROXY Routine 10/14/2024 10:05 AM [employer] Vitamin D deficiency, unspecified LIPID PANEL Routine 10/14/2024 10:05 AM [employer] High risk medication use ERYTHROCYTE SEDIMENTATION RATE Routine 10/14/2024 10:05 AM [employer] Rheumatoid arthritis, involving unspecified site, unspecified whether rheumatoid factor present (HCC) COMPREHENSIVE METABOLIC PANEL Routine 10/14/2024 10:05 AM [employer] Rheumatoid arthritis, involving unspecified site, unspecified whether rheumatoid factor present (HCC) High risk medication use CBC WITH AUTO DIFFERENTIAL Routine 10/14/2024 10:05 AM [employer] Rheumatoid arthritis, involving unspecified site, unspecified whether rheumatoid factor present (HCC) High risk medication use CRP (ACUTE PHASE) Routine 10/14/2024 10: 05 AM [employer] Rheumatoid arthritis, involving unspecified site, unspecified whether rheumatoid factor present (HCC) CARDIOLOGY DOCUMENT SCAN 09/11/2024 SCAN - RADIOLOGY/IMAGING 09/09/2024 from Last 3 Months Results * (ABNORMAL) eGFR (10/14/2024 10:05 AM [employer]) Pathologist [facility] eGFR 58(L) >=60 mL/min/1. 73 m2 Comment: Interpretive Data Reference Interval Normal ?>/= 90 mL/min/1.73m2 Mildly decreased* ? 60 - 89 mL/min/1.73m2 Mildly to moderately decreased ?45 - 59 mL/min/1.73m2 Moderately to severely decreased ??30 - 44 mL/min/1.73m2 Severely decreased ?15 - 29 mL/min/1.73m2 Kidney Failure ?< 15 ??mL/min/1.73m2 *Relative to young adult level Estimated glomerular filtration rate is determined by the 2020 CKD-EPI equation recommended by the National Kidney Foundation (A Unifying Approach to GFR Estimation: Recommendations of the NKF-ASK Task Force on Reassessing the Inclusion of Race in Diagnosing Kidney Disease, JASN 2020). The CKD-EPI equation should not be used for patients with unstable renal function and has not been validated in children and those over 70. Current interpretive data was last reviewed 2021. Blood 10/14/2024 10:0 5 AM [employer] 10/14/2024 4:06 PM [employer] Kaur Dietrich MD LAB BL OOD ORDERABLES Final Result [facility] [address] Department [place] [address] * (ABNORMAL) Differential, auto (10/14/2024 10:05 AM [employer]) Neutrophil abs 4.6 1.5 - 6.5 K/cumm Imm gran abs 0.0 0.0 - 0.1 K/cumm [facility] Lymphocyte abs 0.8 0.8 - 3.3 K/cumm [facility] Monocyte abs 0.9(H) 0.2 - 0.8 K/cumm [facility] Eosinophil abs 0.0 0.0 - 0.5 K/cumm [facility] Basophil abs 0.0 0.0 - 0.1 K/cumm [facility] Neutrophil pct 72.2 % [facility] Comment: Interpretive Data Percent cell count reference ranges are not reported, since discordance with absolute values may lead to misinterpretation of CBC data. Current Interpretive Data was last revised on 2018. Imm gran pct 0.6 % [facility] Comment: Interpretive Data Percent cell count reference ranges are not reported, since discordance with absolute values may lead to misinterpretation of CBC data. Current Interpretive Data was last revised on 2018. Lymphocyte pct 12.7 % [facility] Comment: Interpretive Data Percent cell count reference ranges are not reported, since discordance with absolute values may lead to misinterpretation of CBC data. Current Interpretive Data was last revised on 2018. Monocyte pct 13.5 % [facility] Comment: Interpretive Data Percent cell count reference ranges are not reported, since discordance with absolute values may lead to misinterpretation of CBC data. Current Interpretive Data was last revised on 2018. Eosinophil pct 0.5 % [facility] Comment: Interpretive Data Percent cell count reference ranges are not reported, since discordance with absolute values may lead to misinterpretation of CBC data. Current Interpretive Data was last revised on 2018. Basophil pct 0.5 % [facility] Comment: Interpretive Data Percent cell count reference ranges are not reported, since discordance with absolute values may lead to misinterpretation of CBC data. Current Interpretive Data was last revised on 2018. Blood 10/14/2024 10:0 5 AM [employer] 10/14/2024 4:06 PM [employer] Kaur Dietrich MD LAB BL OOD ORDERABLES Final Result Performing Organization Address City/State/[facility] Co de Phone Number DI [facility] [address] Department [facility] [place], [place] [id number] * (ABNORMAL) CBC with auto differential (10/14/2024 10:05 AM [employer]) WBC 6.4 3.8 - 9.9 K/cumm Hgb 10.6(L) 11.9 - 15.5 g/dL [facility] Hct 34.4(L) 35.6 - 45.5 % [facility] CH Plt 457(H) 150 - 400 K/cumm [facility] MPV 10.3 9.1 - 12.3 fL [facility] RBC 3.26(L) 3.90 - 5.20 M/cumm [facility] MCV 105.5(H) 81.3 - 96.4 fL [facility] MCH 32.5 27.1 - 33.3 pg [facility] MCHC 30.8(L) 32.3 - 35.7 g/dL [facility] CH RDW CV 15.4(H) 11.1 - 14.9 % [facility] CH RDW SD 59.6(H) 35.7 - 48.1 fL [facility] CH NRBC abs 0.00 0.00 - 0.01 K/cumm [facility] CH Blood 10/14/2024 10:0 5 AM [employer] 10/14/2024 4:06 PM [employer] Kaur Dietrich MD LAB BL OOD ORDERABLES Final Result Performing Organization Address [facility]/ZIP Co de Phone Number DI [facility] [address] [address] [place] [address] * (ABNORMAL) Vitamin D 25 hydroxy (10/14/2024 10:05 AM [employer]) Vitamin D 25-OH 97(H) 30 - 80 ng/mL Blood 10/14/2024 10:0 5 AM [employer] 10/14/2024 4:06 PM [employer] Kaur Dietrich MD LAB BL OOD ORDERABLES Final Result Performing Organization Address [facility] de Phone Number DI [facility] [address] [facility] [place] [address] * (ABNORMAL) Erythrocyte sedimentation rate (10/14/2024 10:05 AM [employer]) Erythrocyte sedimentation rate 34(H) 1 - 30 mm/hr Blood 10/14/2024 10:0 5 AM [employer] 10/14/2024 4:06 PM [employer] Kaur Dietrich MD LAB BL OOD ORDERABLES Final Result Performing Organization Address [facility] de Phone Number DI [facility] [address] [address] [facility] [place] [address] * CRP (acute phase) (10/14/2024 10:05 AM [employer]) CRP 4.1 <=10.0 mg/L Blood 10/14/2024 10:0 5 AM [employer] 10/14/2024 4:06 PM [employer] Kaur Dietrich MD LAB BL OOD ORDERABLES Final Result Performing Organization Address [facility] [place] [address] [address] [facility] [place] [address] * (ABNORMAL) Lipid panel (10/14/2024 10:05 AM [employer]) Cholesterol 208(H) 30 - 199 mg/dL Comment: Interpretive Data Ages < or = 19 years ??Acceptable: ? <170 mg/dL ??Borderline high: ??170-199 mg/dL ??High: ? >or= 200 mg/dL Ages > or = 20 years ??Desirable: ?<200 mg/dL ??Borderline high: ??200-239 mg/dL ??High: ? >or= 240 mg/dL Literature References: 1. Expert Panel on Integrated Guidelines for Cardiovascular Health and Risk Reduction in Children and Adolescents. Pediatrics 2011;128:S213 2. NCEP Expert Panel. Circulation 2004;110:227 Current Interpretive Data was last revised on 2018. Triglycerides 92 <=149 mg/dL DI Comment: Interpretive Data Ages < or = 9 years ??Acceptable: ? <75 mg/dL ??Borderline high: ??75-99 mg/dL ??High: ? >or= 100 mg/dL Ages 10 to 20 years ??Acceptable: ? <90 mg/dL ??Borderline high: ??90-129 mg/dL ??High: ? >or= 130 mg/dL Ages > or = 20 years ??Desirable: ?<150 mg/dL ??Borderline high: ??150-199 mg/dL ??High: ? 200-499 mg/dL ?Very high: ?? >or= 499 mg/dL Literature References: 1. Expert Panel on Integrated Guidelines for Cardiovascular Health and Risk Reduction in Children and Adolescents. Pediatrics 2011;128:S213 2. NCEP Expert Panel. Circulation 2004;110:227 Current Interpretive Data was last revised on 2018. HDL 98 >=40 mg/dL DI Comment: Interpretive Data Ages < or = 19 years ??Acceptable: ? >45 mg/dL ??Borderline low: ?? 40-45 mg/dL ??Low: ? <40 mg/dL Ages > or = 20 years ??Desirable: ?>or= 60 mg/dL ??Low: ? <40 mg/dL Literature References: 1. Expert Panel on Integrated Guidelines for Cardiovascular Health and Risk Reduction in Children and Adolescents. Pediatrics 2011;128:S213 2. NCEP Expert Panel. Circulation 2004;110:227 Current Interpretive Data was last revised on 2018. LDL, calculated 94 <=129 mg/dL DI [facility] Comment: Interpretive Data Ages < or = 19 years ??Acceptable: ? <110 mg/dL ??Borderline high: ??110-129 mg/dL ??High: ?>or= 130 mg/dL Ages > or = 20 years ??Optimal: ? <100 mg/dL ??Near optimal: ?100-129 mg/dL ??Borderline high: ?? 130-159 mg/dL ??High: ?>160 mg/dL Calculated using the Jr LDL-C estimating equation. This equation was implemented on 2024. Prior to this date LDL-C was estimated using the Friedewald equation. Literature References: 1. Expert Panel on Integrated Guidelines for Cardiovascular Health and Risk Reduction in Children and Adolescents. Pediatrics 2011;128:S213 2. NCEP Expert Panel. Circulation 2004;110:227 3. Jr Tijerina et al. MAXINE Cardiol. 2020 February 27;5(5):540-548. doi: 10.1001/jamacardio.2020.0013 Current Interpretive Data was last revised on 2024. Non-HDL Cholesterol 110 mg/dL DI [facility] Comment: Interpretive Data Ages < or = 19 years ??Acceptable: ?<120 mg/dL ??Borderline high: ??120-144 mg/dL ??High: ?>145 mg/dL Ages > or = 20 years ??When triglycerides are >200 mg/dL, Non-HDL cholesterol is a secondary target of ? therapy with treatment goals that are 30 mg/dL greater than the LDL cholesterol target. ? Literature References: 1. Expert Panel on Integrated Guidelines for Cardiovascular Health and Risk Reduction in Children and Adolescents. Pediatrics 2011;128:S213 2. NCEP Expert Panel. Circulation 2004;110:227 Current Interpretive Data was last revised on 2018. Chol/HDL ratio 2 DI Blood 10/14/2024 10:0 5 AM [employer] 10/14/2024 4:06 PM [employer] Kaur Dietrich MD LAB BL OOD ORDERABLES Final Result [facility] [address] Department [place] [address] * (ABNORMAL) Comprehensive metabolic panel (10/14/2024 10:05 AM [employer]) Sodium 131(L) 135 - 145 mmol/L Potassium, pl 4.2 3.3 - 4.9 mmol/L [facility] Chloride 94(L) 97 - 110 mmol/L [facility] CO2 22 22 - 32 mmol/L [facility] Anion gap 15 2 - 15 mmol/L [facility] BUN 9 6 - 25 mg/dL [facility] Creatinine 0.98 0.60 - 1.10 mg/dL [facility] Glucose 106 70 - 199 mg/dL [facility] Comment: Interpretive Data Fasting glucose >/= 126 mg/dl is diagnostic for diabetes. ?? Fasting is defined as no caloric intake for at least 8 hours. Fasting glucose between 100 mg/dl to 125 mg/dl is diagnostic of prediabetes. In a patient with classic symptoms of hyperglycemia or hyperglycemic crisis, a random glucose >/= 200 mg/dl is diagnostic for diabetes. In the absence of unequivocal hyperglycemia, results should be confirmed by repeat testing. The classification and Diagnosis of Diabetes Diabetes Care 2021; 46: S19-S40. Current interpretive data was last revised 2022. Calcium 10.4(H) 8.5 - 10.3 mg/dL [facility] Bilirubin, total 0.4 0.1 - 1.2 mg/dL [facility] Protein, pl 7.5 6.5 - 8.5 g/dL [facility] Albumin 4.6 3.5 - 5.0 g/dL [facility] Alk phos 72 40 - 130 Units/L [facility] ALT 15 7 - 45 Units/L [facility] AST 28 10 - 45 Units/L [facility] Blood 10/14/2024 10:0 5 AM [employer] 10/14/2024 4:06 PM [employer] Kaur Dietrich MD LAB [place] [address] [address] Department of Laboratories [place] [phone] * Cardiology Document Scan (09/11/2024) Anatomical Region Laterality Modality Other us Provider Scanning CV CARDIAC SERVICES PROCEDURES Final Result * SCAN - RADIOLOGY/IMAGING (09/09/2024) Anatomical Region Laterality Modality Other us Provider Scanning Final Result from Last 3 Months Insurance MEDICARE Member Subscriber Plan / Payer ( fective 2007-Present) Name:Preethi Casas Member ID:[id number] Relation to Subscriber:Self Name:Preethi Casas Subscriber ID:[id number] Payer ID:[id number] Group ID:Not on file Type:MEDICARE TRADITIONAL Address: [address] [id number] [employer] MED[employer]ARE SUPP MEDICARE Care Teams Lumber Stacker Driver Relationship Specialty Start Date End Date Darius Novoa MD [address] [place] [address] PCP - General 04/03/07
--- OUTSIDE RECORDS SUMMARY | 2024-11-21 21:28 | XMS_ITS | Encounter Summary ---
Author Organization [facility] Address [address] [place] [address] Phone Care Team Providers Care Industrial Relations Counselor Name Role Phone Darius Novoa MD Primary Care Provide r Encounter Details Date Type Department Care Team (Late st Contact Info) Description 09/11/2024 Orders Only [facility] Scanning, Provider Social History Tobacco Use Types Packs/Day Years Used Date Smoking Tobacco: Never Smokeless Tobacco: Never Comments Unknown Sex and Gender Information Value Date Recorded Sex Assigned at Not on file 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 Gender Identity Not on file Sexual Orientation Not on file documented as of this encounter Plan of Treatment Not on file documented as of this encounter Procedures Procedure Name Priority Date/Time Associated Diagnosis Comments CARDIOLOGY DOCUMENT SCAN 09/11/2024 documented in this encounter Results * Cardiology Document Scan (09/11/2024) Anatomical Region Laterality Modality Other us Provider Scanning CV CARDIAC SERVICES PROCEDURES Final Result documented in this encounter Visit Diagnoses Not on filedocumented in this encounter Care Teams Industrial Relations Counselor Relationship Specialty Start Date End Date Darius Novoa MD [address] [place] [address] PCP - General 04/03/07 documented as of this encounter
--- OUTSIDE RECORDS SUMMARY | 2024-11-21 21:28 | XMS_ITS | Clinical Summary ---
Author Organization [facility] Address [address] [place] [address] Care Team Providers Care Policy Services Representative Name Role Phone Unavailable Primary Care Provider Unavailabl e Social History Tobacco Use Types Packs/Day Years Used Date Smoking Tobacco: Never Assessed Comments Unknown Sex and Gender Information Value Date Recorded Sex Assigned at Not on file Legal Sex Female 8:40 PM PDT Gender Identity Not on file Sexual Orientation Not on file Plan of Treatment Not on file
--- OUTSIDE RECORDS SUMMARY | 2024-11-21 21:28 | XMS_ITS | CCD ---
Author Organization [facility] Address [address] [place] [address] Care Team Providers Care Clinical Program Consultant Name Role Phone Unavailable Primary Care Provider [...]
--- OUTSIDE RECORDS SUMMARY | 2024-11-21 21:28 | XMS_ITS ---
Author Organization [facility] Address [address] [place] [address] Care Team Providers Care Airplane Technician Name Role Phone Unavailable Unavailable Unavailable Surgery Details Not on file Complications Check Surgery Details section. Procedure Estimated Blood Loss Check Surgery Details section. Procedure Findings Check Surgery Details section. Procedure Specimens Taken Check Surgery Details section.
--- OUTSIDE RECORDS SUMMARY | 2024-11-21 21:28 | XMS_ITS | Referral Summary ---
Author Organization [facility] Address [address] [place] [address] Care Team Providers Care Chlorine Cells Operator Name Role Phone Unavailable Primary Care Provider [...]
--- OUTSIDE RECORDS SUMMARY | 2024-11-21 21:28 | XMS_ITS | Encounter Summary ---
Author Organization [facility] Address [address] [place] [address] Care Team Providers Care Melt Down Furnace Operator Name Role Phone Unavailable Primary Care Provider Unavailabl e Prior Encounters Date Type Department Care Team Description 11/18/2019 Converted CPS Chart Documents [facility] [address] [place] [address] <No scans attached> 11/18/2019 Converted 13x Documents [facility] [address] [place] [address] <No scans attached> Plan of Treatment Not on file Procedures Procedure Name Priority Date/Time Associated Diagnosis Comments 3 ADVERTISING ASSISTANT MANAGER CONSULT Routine 03/25/2021 2:00 AM CDT 3 PULP VITALITY TESTS Routine 03/25/2021 2:00 AM CDT Visit Diagnoses Not on file
--- OUTSIDE RECORDS SUMMARY | 2024-11-21 21:28 | XMS_ITS | Clinical Summary ---
Author Organization [facility] Address [address] [place] [address]. [place] [address] [place] [address] Care Team Providers Care Signal Integrity Engineer Name Role Phone Darius Novoa MD Primary Care Provider [phone] Allergies Active Allergy Reactions Criticality Noted Date Comments Ketamine Dizziness 07/13/2020 Medications lisinopril 10 MG tablet Take 10 mg by mouth daily. Active calcium carbonate 500 MG chewable tablet Chew 1 tablet by mouth daily. Active docusate sodium 100 MG capsule Take 100 mg by mouth 2 (two) times daily as needed for Constipation . Active acetaminophen 325 MG tablet Take 650 mg by mouth every 6 (six) hours as needed for Pain. Active Ascorbic Acid (VITAMIN C) 100 MG tablet Take 500 mg by mouth daily. Active amLODIPine 10 MG tablet Take 5 mg by mouth daily. Active predniSONE 5 mg tablet Take 5 mg by mouth daily. Active pravastatin 10 MG tablet Take 10 mg by mouth nightly at bedtime. Active methotrexate 2.5 MG tablet Take 10 mg by mouth once a week. Active folic acid 1 MG tablet Take 1 mg by mouth daily. Active aspirin EC (ASPIRIN EC) 81 MG tablet Take 81 mg by mouth daily. Active Cholecalciferol (VITAMIN D) 50 MCG (1999 UT) Tab Take 50 mcg by mouth. Active Active Problems Problem Noted Date Diagnosed Date Seropositive rheumatoid arth ritis of multiple sites ([facility]) 07/13/2020 Social History Tobacco Use Types Packs/Day Years Used Date Smoking Tobacco: Never Assessed Comments Unknown Sex and Gender Information Value Date Recorded Sex Assigned at Not on file Legal Sex Female 5:32 PM CDT Gender Identity Not on file Sexual Orientation Not on file Last Filed Vital Signs Vital Sign Reading Time Taken Comments Blood Pressure 156/81 09/07/2020 10:36 AM LIVE TRUCK TECHNICIAN Pulse 99 09/07/2020 10:36 AM LIVE TRUCK TECHNICIAN Temperature 36.7 ??C (98 ??F) 09/07/2020 10:36 AM LIVE TRUCK TECHNICIAN Respiratory Rate 18 09/07/2020 10:36 AM LIVE TRUCK TECHNICIAN Oxygen Saturation 97% 09/07/2020 10:36 AM LIVE TRUCK TECHNICIAN Inhaled Oxygen Concentration - - Weight 86.2 kg (190 lb) 09/07/2020 10:36 AM LIVE TRUCK TECHNICIAN Height 167.6 cm (5' 6 ) 07/13/2020 9:38 AM CDT Body Mass Index 30.67 07/13/2020 9:38 AM CDT Plan of Treatment Health Maintenance Due Date Last Done Comments DTaP, Tdap and Td Vaccines (1 - Tdap) 1962 Zoster Vaccines (1 of 2) 1993 Annual Medicare Wellness Visit 01/04/2008 Dexa Scan (General) 01/04/2008 Pneumococcal Vaccine: 65+ Years (1 of 1 - PCV) 01/04/2008 RSV Immunization or 60+ Years (1 - 1-dose 75+ series) 2018 COVID-19 Vaccine ( - 2023- season) 2024 Influenza Adult (#1) 2024 07/10/2019, 07/10/2018, 07/18/2017, Additional history exists Meningococcal Vaccine Aged Out No myra sammy eligible based on patient's age to complete this topic RSV Immunizations Under 20 Months Aged Out No longer eligible based on patient's age to complete this topic Insurance MEDICARE [employer] Care Teams Signal Integrity Engineer Relationship Specialty Start Date End Date Darius Novoa MD [address] [address] PCP - General INTERNAL MEDICINE 07/13/20
--- OUTSIDE RECORDS SUMMARY | 2024-11-21 21:28 | XMS_ITS | Referral Summary ---
Author Organization [facility] Address [address] [place] [address] Care Team Providers Care Aircraft Pilot Name Role Phone Darius Novoa MD Primary Care Provide r Encounters Date Type Department Care Team Description 11/05/2024 Orders Only [address] [id number] [place] [address] Beth Leo RN 10/15/2024 Orders Only [facility] [address] 5[address] [place] [address] [place] [address] Kaur Pitts MD 10/14/2024 Telephone [facility] [address] [place] [address] [place] [phone] Kaur Pitts MD Prior Auth (Infliximab) 10/14/2024 10:05 AM TAR HEEL - 10/14/2024 11:59 PM TAR HEEL Hospital Encounter [address] [address] Rheumatoid arthritis, involving unspecified site, unspecified whether rheumatoid factor present (HCC); High risk medication use; Vitamin D deficiency, unspecified Discharge Disposition: Discharge to home or self care 10/14/2024 10:10 AM TAR HEEL Lab [facility] [address] [place] [address] [address] [place] [address] 10/14/2024 9:30 AM TAR HEEL Office Visit [facility] [address] [place] [place] [address] [address] [place] [id number] Ivett Dietrich, Kaur Clement MD Rheumatoid arthritis, involving unspecified site, unspecified whether rheumatoid factor present (HCC) (Primary Dx); High risk medication use; Vitamin D deficiency, unspecified 09/11/2024 Orders Only [facility] Scanning, Provider 09/09/2024 Orders Only [facility] Scanning, Provider from Last 3 Months Allergies Active Allergy Reactions Criticality Noted Date [...] Date Diagnosed Date Seropositive rheumatoid arthritis 10/14/2024 Social History Tobacco Use Types Packs/Day Years Used Date Smoking Tobacco: Never Smokeless Tobacco: Never Tobacco Cessation:Counseling Given: No Comments Unknown Sex and Gender Information Value Date Recorded Sex Assigned at Not on file Legal Sex Female 11:30 PM TAR HEEL Gender Identity Not on file Sexual Orientation Not on file Last Filed Vital Signs Vital Sign Reading Time Taken Comments Blood Pressure 149/76 10/14/2024 9:31 AM TAR HEEL Pulse 103 10/14/2024 9:31 AM TAR HEEL Temperature 36.7 ??C (98 ??F) 10/14/2024 9:31 AM TAR HEEL Respiratory Rate - - Oxygen Saturation 97% 10/14/2024 9:31 AM TAR HEEL Inhaled Oxygen Concentration - - Weight 83.6 kg (184 lb 6.4 oz) 10/14/2024 9:31 A M TAR HEEL Height 163.8 cm (5' 4.5 ) 10/14/2024 9:31 AM TAR HEEL Body Mass Index 31.16 10/14/2024 9:31 AM TAR HEEL Plan of Treatment Not on file Procedures Procedure Name Priority Date/Time Associated Diagnosis Comments EGFR Routine 10/14/2024 10:05 AM TAR HEEL Rheumatoid arthritis, involving unspecified site, unspecified whether rheumatoid factor present (HCC) High risk medication use DIFFERENTIAL AUTO Routine 10/14/2024 10: 05 AM TAR HEEL Rheumatoid arthritis, involving unspecified site, unspecified whether rheumatoid factor present (HCC) High risk medication use VITAMIN D 25 HYDROXY Routine 10/14/2024 10:05 AM TAR HEEL Vitamin D deficiency, unspecified LIPID PANEL Routine 10/14/2024 10:05 AM TAR HEEL High risk medication use ERYTHROCYTE SEDIMENTATION RATE Routine 10/14/2024 10:05 AM TAR HEEL Rheumatoid arthritis, involving unspecified site, unspecified whether rheumatoid factor present (HCC) COMPREHENSIVE METABOLIC PANEL Routine 10/14/2024 10:05 AM TAR HEEL Rheumatoid arthritis, involving unspecified site, unspecified whether rheumatoid factor present (HCC) High risk medication use CBC WITH AUTO DIFFERENTIAL Routine 10/14/2024 10:05 AM TAR HEEL Rheumatoid arthritis, involving unspecified site, unspecified whether rheumatoid factor present (HCC) High risk medication use CRP (ACUTE PHASE) Routine 10/14/2024 10: 05 AM TAR HEEL Rheumatoid arthritis, involving unspecified site, unspecified whether rheumatoid factor present (HCC) CARDIOLOGY DOCUMENT SCAN 09/11/2024 SCAN - RADIOLOGY/IMAGING 09/09/2024 from Last 3 Months Results * (ABNORMAL) eGFR (10/14/2024 10:05 AM TAR HEEL) eGFR 58(L) >=60 mL/min/1. 73 m2 Comment: [...] reviewed 2021. Blood 10/14/2024 10:0 5 AM TAR HEEL 10/14/2024 4:06 PM TAR HEEL Kaur Dietrich MD LAB [place] [id number] [address] [place] [address] * (ABNORMAL) Differential, auto (10/14/2024 10:05 AM TAR HEEL) Neutrophil abs 4.6 1.5 - 6.5 K/cumm Imm gran abs 0.0 0.0 - 0.1 K/cumm [facility] Lymphocyte abs 0.8 0.8 - 3.3 K/cumm [facility] Monocyte abs 0.9(H) 0.2 - 0.8 K/cumm [facility] Eosinophil abs 0.0 0.0 - 0.5 K/cumm [facility] Basophil abs 0.0 0.0 - 0.1 K/cumm [facility] Neutrophil pct 72.2 % [facility] Comment: Interpretive Data Percent cell count reference ranges are not reported, since discordance with absolute values may lead to misinterpretation of CBC data. Current Interpretive Data was last revised on 2018. Imm gran pct 0.6 % [facility] Comment: Interpretive Data Percent cell count reference ranges are not reported, since discordance with absolute values may lead to misinterpretation of CBC data. Current Interpretive Data was last revised on 2018. Lymphocyte pct 12.7 % [facility] Comment: Interpretive Data Percent cell count reference ranges are not reported, since discordance with absolute values may lead to misinterpretation of CBC data. Current Interpretive Data was last revised on 2018. Monocyte pct 13.5 % [facility] Comment: Interpretive Data Percent cell count reference ranges are not reported, since discordance with absolute values may lead to misinterpretation of CBC data. Current Interpretive Data was last revised on 2018. Eosinophil pct 0.5 % [facility] Comment: Interpretive Data Percent cell count reference ranges are not reported, since discordance with absolute values may lead to misinterpretation of CBC data. Current Interpretive Data was last revised on 2018. Basophil pct 0.5 % [facility] Comment: Interpretive Data Percent cell count reference ranges are not reported, since discordance with absolute values may lead to misinterpretation of CBC data. Current Interpretive Data was last revised on 2018. Blood 10/14/2024 10:0 5 AM TAR HEEL 10/14/2024 4:06 PM TAR HEEL Kaur Dietrich MD LAB BL OOD ORDERABLES Final Result DI [place]DISON [address] [address] [employer] [place] [address] * (ABNORMAL) CBC with auto differential (10/14/2024 10:05 AM TAR HEEL) WBC 6.4 3.8 - 9.9 K/cumm Hgb 10.6(L) 11.9 - 15.5 g/dL [facility] Hct 34.4(L) 35.6 - 45.5 % [facility] Plt 457(H) 150 - 400 K/cumm [facility] MPV 10.3 9.1 - 12.3 fL [facility] RBC 3.26(L) 3.90 - 5.20 M/cumm [facility] MCV 105.5(H) 81.3 - 96.4 fL [facility] MCH 32.5 27.1 - 33.3 pg [facility] MCHC 30.8(L) 32.3 - 35.7 g/dL [facility] RDW CV 15.4(H) 11.1 - 14.9 % [facility] RDW SD 59.6(H) 35.7 - 48.1 fL [facility] NRBC abs 0.00 0.00 - 0.01 K/cumm [facility] Blood 10/14/2024 10:0 5 AM TAR HEEL 10/14/2024 4:06 PM TAR HEEL Kaur Dietrich MD LAB BL OOD ORDERABLES Final Result DI [place]DISON [address] [place] [address] * (ABNORMAL) Vitamin D 25 hydroxy (10/14/2024 10:05 AM TAR HEEL) Pathologist [facility] Vitamin D 25-OH 97(H) 30 - 80 ng/mL Blood 10/14/2024 10:0 5 AM TAR HEEL 10/14/2024 4:06 PM TAR HEEL Kaur Dietrich MD LAB [place] [address] [place] [address] * (ABNORMAL) Erythrocyte sedimentation rate (10/14/2024 10:05 AM TAR HEEL) [facility] Erythrocyte sedimentation rate 34(H) 1 - 30 mm/hr Blood 10/14/2024 10:0 5 AM TAR HEEL 10/14/2024 4:06 PM TAR HEEL Kaur Dietrich MD LAB BL OOD ORDERABLES Final Result Performing Organization Address City/[facility]/[place] [address] [address] [facility] [place] [address] * CRP (acute phase) (10/14/2024 10:05 AM TAR HEEL) Pathologist [facility] CRP 4.1 <=10.0 mg/L Blood 10/14/2024 10:0 5 AM TAR HEEL 10/14/2024 4:06 PM TAR HEEL Kaur Dietrich MD LAB BL OOD ORDERABLES Final Result Performing Organization Address City/[facility]/[place] [address] [place] [address] * (ABNORMAL) Lipid panel (10/14/2024 10:05 AM TAR HEEL) Cholesterol 208(H) 30 - 199 mg/dL Comment: [...] on 2018. Triglycerides 92 <=149 mg/dL DI ADDISON Comment: Interpretive Data Ages [...] on 2018. HDL 98 >=40 mg/dL DI ADDISON Comment: Interpretive Data Ages [...] 2018. LDL, calculated 94 <=129 mg/dL DI ADDIOSN Comment: Interpretive Data Ages < or = [...] last revised on 2018. Chol/HDL ratio 2 [facility] Blood 10/14/2024 10:0 5 AM TAR HEEL 10/14/2024 4:06 PM TAR HEEL Kaur Dietrich MD LAB [place] [address] [address] [facility] [place] [address] * (ABNORMAL) Comprehensive metabolic panel (10/14/2024 10:05 AM TAR HEEL) Sodium 131(L) 135 - 145 mmol/L Potassium, [...] classification and Diagnosis of Diabetes Diabetes Care 2022; 46: S19-S40. Current interpretive data was last [...] [facility] Blood 10/14/2024 10:0 5 AM TAR HEEL 10/14/2024 4:06 PM TAR HEEL us Kaur Dietrich MD LAB [place] [address] [address] [place] [address] * Cardiology Document Scan (09/11/2024) Anatomical Region Laterality Modality Other us Provider Scanning [facility] CARDIAC SERVICES PROCEDURES Final Result * SCAN - RADIOLOGY/IMAGING (09/09/2024) Anatomical Region Laterality Modality Other us Provider Scanning Final Result from Last 3 Months Insurance MEDICARE [place] MEDICARE SUPP MEDICARE Care Teams Aircraft Pilot Relationship Specialty Start Date End Date Darius Novoa MD [address] [place] [address] PCP - General 04/03/07
--- OUTSIDE RECORDS SUMMARY | 2024-11-21 21:28 | XMS_ITS | Encounter Summary ---
Author Organization [facility] Address [address] [place] [address] Phone Care Team Providers Care Chief Business Development Officer Name Role Phone Darius Novoa MD Primary Care Provide r Encounter Details Date Type Department Care Team (Late st Contact Info) Description 09/09/2024 Orders Only [facility] Scanning, Provider Social History Tobacco Use Types Packs/Day Years Used Date Smoking Tobacco: Never Smokeless Tobacco: Never Comments Unknown Sex and Gender Information Value Date Recorded Sex Assigned at Not on file Legal Sex Female 11:30 PM SUPERVISOR OPERATIONS Gender Identity Not on file Sexual Orientation Not on file documented as of this encounter Plan of Treatment Not on file documented as of this encounter Procedures Procedure Name Priority Date/Time Associated Diagnosis Comments SCAN - RADIOLOGY/IMAGING 09/09/2024 documented in this encounter Results * SCAN - RADIOLOGY/IMAGING (09/09/2024) Anatomical Region Laterality Modality Other us Provider Scanning Final Result documented in this encounter Visit Diagnoses Not on filedocumented in this encounter Care Teams Chief Business Development Officer Relationship Specialty Start Date End Date Darius Novoa MD [address] [place] [address] PCP - General 04/03/07 documented as of this encounter
--- OUTSIDE RECORDS SUMMARY | 2024-11-21 21:28 | XMS_ITS | Clinical Summary ---
Author Organization [facility] Address [address], [facility] [address] [place] [address] Phone Care Team Providers Care Ski Production Supervisor Name Role Phone Darius Novoa MD Primary Care Provider [phone] Kai Resendiz DO Unavailable [phone] Allergies Active Allergy Reactions Criticality Noted Date Comments Ketamine Unknown 04/11/2016 Medications methotrexate 2.5 MG Tablet Take by mouth every 7 days. Active predniSONE (DELTASONE) 5 MG Tablet Take 5 mg by mouth daily. Use as directed. Active lisinopril (PRINIVIL, ZESTRIL) 40 MG Tablet Take 40 mg by mouth daily. Active sulfaSALAzine (AZULFIDINE) 500 MG Tablet Take 500 mg by mouth 2 times daily. Active Aspirin 81 MG Tablet Take 81 mg by mouth daily. Active folic acid (FOLVITE) 800 MCG Tablet Take 800 mcg by mouth daily. Active calcium-vitamin D (OSCAL-500 WITH D) 500-200 MG-UNIT Tablet Take by mouth 2 times daily. Active ascorbic acid (ASCORBIC ACID) 500 MG Tablet Take 500 mg by mouth daily. Active Docusate Calcium (STOOL SOFTENER PO) Take by mouth as needed. Active Immunizations Immunization Administration Dates Next Due Covid-19, Mrna, Lnp-s, Pf, 30 Mcg/0.3 Ml Dose (Maria Antonia fizer) 01/18/2021,12/28/2020 Family History Medical History Relation Name Comments Heart Disease Brother Cancer Father throat Heart Disease Father Prostate Cancer Father Breast Cancer Mother Ovarian Cancer Mother Ovarian Cancer Sister Relation Name Status Comments Brother Father Mother Sister Social History Tobacco Use Types Packs/Day Years Used Date Smoking Tobacco: Never Alcohol Use Standard Drinks/Week Comments No 0 (1 standard drink = 0.6 oz pur e alcohol) Comments Unknown Sex and Gender Information Value Date Recorded Sex Assigned at Not on file Legal Sex Female 2:18 PM CDT Gender Identity Not on file Sexual Orientation Not on file Plan of Treatment Health Maintenance Due Date Last Done Comments DEXA Bone Density 1945 Hepatitis C Virus (HCV) Screening 1945 TdaP Immunization 1945 Zoster Immunization (1 of 2) 1962 Pneumococcal Immunization (5 0+ years) (1 of 1 - PCV) 1993 Respiratory Syncytial Virus (RSV) Immunization (Adult) (1 - 1-dose 75+ series) 2018 SARS-COV-2 Immunization (3 - Pfizer risk series) 02/15/2021 01/18/2021, 12/28/2020 Influenza Immunization (#1) 2024 Hepatitis B Immunization Aged Out No longer eligible based on patient's age to complete this topic Meningococcal Immunization (ACWY) Aged Out No longer eligible b ased on patient's age to complete this topic Rotavirus Immunization Aged Out No lo nger eligible based on patient's age to complete this topic Insurance MEDICARE Care Teams Ski Production Supervisor Relationship Specialty Start Date End Date Darius Novoa MD [address] [place] [address] PCP - General Internal Medicine 04/12/16 Kai Resendiz DO [address] [address] Gastroenterology 04/12/16
== END 2024-11-20 07:56 | disposition home or self-care (01) ==
LOC: ANHCARD 07:56
PROVIDERS: PCP Emergency Medicine; Visit Provider Internal Medicine Cardiovascular Disease
DX: Z01.810 Encounter for preprocedural cardiovascular examination (principal); I24.89 Other forms of acute ischemic heart disease; R06.09 Other forms of dyspnea
CPT/HCPCS: 78452; 93017; A9502; J2785

== ENCOUNTER 2024-12-16 09:42 | Outpatient (CLI) | payer MEDICARE, OTHER, SELFPAY ==
--- NOTE | ~2024-12-16 | XR_ITS ---
EXAMINATION: XR abdomen/kub 1V DATE: 12/16/2024 10:08 INDICATION: Bilateral kidney stones. TECHNIQUE: A supine view of the abdomen on 2 radiographs was obtained. COMPARISON: Ultrasound kidneys 08/15/2025 FINDINGS: There are no dilated loops of bowel. There is a moderate volume of stool in the colon. The kidneys are obscured by bowel. There are approximately 5 stones in right kidney measuring up to 12 mm . IMPRESSION: 1. Right kidney stones. Reviewed, dictated and finalized at location A. ERTY MANAGEMENT SUPERVISOR IMPRESSION: 1. Right kidney stones.
--- OUTSIDE RECORDS SUMMARY | 2024-12-16 12:32 | XMS_ITS | Clinical Summary ---
Author Organization [facility] Address [address], [facility] [address] [place] [address] Phone Care Team Providers Care Corporate Strategy Analyst Name Role Phone Darius Novoa MD Primary Care Provider [phone] Kai Resendiz DO Unavailable [phone] Allergies Active Allergy Reactions Criticality Noted [...] complete this topic Insurance MEDICARE Care Teams Corporate Strategy Analyst Relationship Specialty Start Date End Date Darius Novoa MD [address] [place] [address] PCP - General Internal Medicine 04/12/16 Kai Resendiz DO [address] [address] Gastroenterology 04/12/16
--- OUTSIDE RECORDS SUMMARY | 2024-12-16 12:32 | XMS_ITS | Referral Summary ---
Author Organization [facility] Address [address] [place] [address] Care Team Providers Care Assistant Foreman Name Role Phone Darius Novoa MD Primary Care Provide r Encounters Date Type Department Care Team Description 12/09/2024 9:53 AM SIMPLEX PRINTER INSTALLER - 12/09/2024 11:59 PM SIMPLEX PRINTER INSTALLER Hospital Encounter [address] [address] Seropositive rheumatoid arthritis (HCC) (Primary Dx) Discharge Disposition: Discharge to home or self care 12/02/2024 Orders Only [address] [address] Christine Christensen, SALVADOR 11/25/2024 11:00 AM SIMPLEX PRINTER INSTALLER - 11/25/2024 11:59 PM SIMPLEX PRINTER INSTALLER Hospital Encounter [address] [address] Seropositive rheumatoid arthritis (HCC) (Primary Dx) Discharge Disposition: Discharge to home or self care 11/22/[address] [address] Violeta Almarza MA 11/05/2024 Orders Only [address] [address] Beth Leo, SALVADOR 10/15/2024 Orders Only [facility] Rheumatology [address] [facility] 5th [place] [address] [place] [address] Kaur Pitts MD 10/14/2024 Telephone [facility] Rheumatology 1 [facility] 1 [place] [address] Kaur Pitts MD Prior Auth (Infliximab) 10/14/2024 10:05 AM SIMPLEX PRINTER INSTALLER - 10/14/2024 11:59 PM SIMPLEX PRINTER INSTALLER Hospital Encounter [address] [address] Rheumatoid arthritis, involving unspecified site, unspecified whether rheumatoid factor present (HCC); High risk medication use; Vitamin D deficiency, unspecified Discharge Disposition: Discharge to home or self care 10/14/2024 10:10 AM SIMPLEX PRINTER INSTALLER Lab [facility] Infectious Diseases 1 [facility] 1 [place] [address] 10/14/2024 9:30 AM SIMPLEX PRINTER INSTALLER Office Visit [facility] Rheumatology [address] [place] [phone] Kaur Pitts MD Rheumatoid arthritis, involving unspecified site, unspecified whether rheumatoid factor present (HCC) (Primary Dx); High risk medication use; Vitamin D deficiency, unspecified from Last 3 Months Allergies Active Allergy Reactions Criticality Noted Date Comments Ketamine Dizziness,Unknown Low 04/11/2016 Medications valACYclovir (VALTREX) 500 mg tablet 4 Active pravastatin (PRAVACHOL) 10 mg tablet Take 1 tablet (10 mg total) by mouth daily Active losartan-hydroch lorothiazide (HYZAAR) 100-25 mg per tablet 4 Active ezetimibe (ZETIA) 10 mg tablet 4 Active docusate sodium (COLACE) 100 mg capsule Take 1 capsule (100 mg total) by mouth 2 (two) times a day as needed Active ascorbic acid (VITAMIN C) 100 mg tablet Take 5 tablets (500 mg total) by mouth daily Active amLODIPine (NORVASC) 10 mg tablet Take 0.5 tablets (5 mg total) by mouth daily Active alendronate (FOSAMAX) 70 mg tablet Take 1 tablet (70 mg total) by mouth 4 Active acetaminophen (TYLENOL) 325 mg tablet Take 2 tablets (650 mg total) by mouth every 6 (six) hours as needed Active methotrexate 2.5 mg tabletIndication s:Rheumatoid Arthritis Take 4 tablets (10 mg total) by mouth once a week 48 tablet 1 4 Active folic acid (FOLVITE) 1 mg tabletIndication s:Rheumatoid arthritis, involving unspecified site, unspecified whether rheumatoid factor present (HCC),High risk medication use Take 1 tablet (1 mg total) by mouth daily 90 tablet 1 4 Active Xarelto 20 mg tablet Take 1 tablet (20 mg total) by mouth 4 Active aspirin 81 mg enteric coated tablet Take 1 tablet (81 mg total) by mouth daily 11/25/19 25 Discontinue d(Alternate therapy) Rinvoq 15 mg tablet extended release 24 hrIndications:Rh eumatoid Arthritis Take 15 mg by mouth daily 90 tablet 1 4 11/25/19 25 Discontinue d(Therapy completed) sulfamethoxazole -trimethoprim (BACTRIM DS) 800-160 mg per tablet Take 1 tablet by mouth every 12 (twelve) hours 4 11/25/19 25 Discontinue d(Therapy completed) nitrofurantoin (MACRODANTIN) 100 mg capsule Take 1 capsule (100 mg total) by mouth daily 12/13/19 25 Active Problems Problem Noted Date Diagnosed Date Seropositive rheumatoid arthritis 10/14/2024 Social History Tobacco Use Types Packs/Day Years Used Date Smoking Tobacco: Never Smokeless Tobacco: Never Tobacco Cessation:Counseling Given: No Comments Unknown Sex and Gender Information Value Date Recorded Sex Assigned at Not on file Legal Sex Female 11:30 PM SIMPLEX PRINTER INSTALLER Gender Identity Not on file Sexual Orientation Not on file Last Filed Vital Signs Vital Sign Reading Time Taken Comments Blood Pressure 124/58 12/09/2024 12:35 PM SIMPLEX PRINTER INSTALLER Pulse 80 12/09/2024 11:35 AM SIMPLEX PRINTER INSTALLER Temperature 36.5 C (97.7 F) 12/09/2024 10:00 AM SIMPLEX PRINTER INSTALLER Respiratory Rate 18 12/09/2024 12:35 PM SIMPLEX PRINTER INSTALLER Oxygen Saturation 97% 12/09/2024 12:35 PM SIMPLEX PRINTER INSTALLER Inhaled Oxygen Concentration - - Weight 82.6 kg (182 lb) 12/09/2024 9:55 AM SIMPLEX PRINTER INSTALLER Height 163.8 cm (5' 4.5 ) 10/14/2024 9:31 AM SIMPLEX PRINTER INSTALLER Body Mass Index 30.76 10/14/2024 9:31 AM SIMPLEX PRINTER INSTALLER Plan of Treatment Not on file Procedures Procedure Name Priority Date/Time Associated Diagnosis Comments EGFR Routine 10/14/2024 10:05 AM SIMPLEX PRINTER INSTALLER Rheumatoid arthritis, involving unspecified site, unspecified whether rheumatoid factor present (HCC) High risk medication use DIFFERENTIAL AUTO Routine 10/14/2024 10: 05 AM SIMPLEX PRINTER INSTALLER Rheumatoid arthritis, involving unspecified site, unspecified whether rheumatoid factor present (HCC) High risk medication use VITAMIN D 25 HYDROXY Routine 10/14/2024 10:05 AM SIMPLEX PRINTER INSTALLER Vitamin D deficiency, unspecified LIPID PANEL Routine 10/14/2024 10:05 AM SIMPLEX PRINTER INSTALLER High risk medication use ERYTHROCYTE SEDIMENTATION RATE Routine 10/14/2024 10:05 AM SIMPLEX PRINTER INSTALLER Rheumatoid arthritis, involving unspecified site, unspecified whether rheumatoid factor present (HCC) COMPREHENSIVE METABOLIC PANEL Routine 10/14/2024 10:05 AM SIMPLEX PRINTER INSTALLER Rheumatoid arthritis, involving unspecified site, unspecified whether rheumatoid factor present (HCC) High risk medication use CBC WITH AUTO DIFFERENTIAL Routine 10/14/2024 10:05 AM SIMPLEX PRINTER INSTALLER Rheumatoid arthritis, involving unspecified site, unspecified whether rheumatoid factor present (HCC) High risk medication use CRP (ACUTE PHASE) Routine 10/14/2024 10: 05 AM SIMPLEX PRINTER INSTALLER Rheumatoid arthritis, involving unspecified site, unspecified whether rheumatoid factor present (HCC) from Last 3 Months Results * (ABNORMAL) eGFR (10/14/2024 10:05 AM SIMPLEX PRINTER INSTALLER) [facility] eGFR 58(L) >=60 mL/min/1. 73 m2 Comment: Interpretive Data Reference Interval Normal >/= 90 mL/min/1.73m2 Mildly decreased* 60 - 89 mL/min/1.73m2 Mildly to moderately decreased 45 - 59 mL/min/1.73m2 Moderately to severely decreased 30 - 44 mL/min/1.73m2 Severely decreased 15 - 29 mL/min/1.73m2 Kidney Failure < 15 mL/min/1.73m2 *Relative to young adult level Estimated glomerular filtration rate is determined by the 2020 CKD-EPI equation recommended by the National Kidney Foundation (A Unifying Approach to GFR Estimation: Recommendations of the NKF-ASK Task Force on Reassessing the Inclusion of Race in Diagnosing Kidney Disease, JASN 202). The CKD-EPI equation should not be used for patients with unstable renal function and has not been validated in children and those over 70. Current interpretive data was last reviewed 2021. Blood 10/14/2024 10:0 5 AM SIMPLEX PRINTER INSTALLER 10/14/2024 4:06 PM SIMPLEX PRINTER INSTALLER Kaur Dietrich MD LAB BL OOD ORDERABLES Final Result [facility] [address] [address] [place] [address] * (ABNORMAL) Differential, auto (10/14/2024 10:05 AM SIMPLEX PRINTER INSTALLER) Neutrophil abs 4.6 1.5 - 6.5 K/cumm Imm gran abs 0.0 0.0 - 0.1 K/cumm [facility] Lymphocyte abs 0.8 0.8 - 3.3 K/cumm [facility] Monocyte abs 0.9(H) 0.2 - 0.8 K/cumm [facility] Eosinophil abs 0.0 0.0 - 0.5 K/cumm [facility] Basophil abs 0.0 0.0 - 0.1 K/cumm [facility] Neutrophil pct 72.2 % DI Comment: Interpretive Data Percent cell count reference ranges are not reported, since discordance with absolute values may lead to misinterpretation of CBC data. Current Interpretive Data was last revised on 2018. Imm gran pct 0.6 % DI Comment: Interpretive Data Percent cell count reference ranges are not reported, since discordance with absolute values may lead to misinterpretation of CBC data. Current Interpretive Data was last revised on 2018. Lymphocyte pct 12.7 % [facility] Comment: Interpretive Data Percent cell count reference ranges are not reported, since discordance with absolute values may lead to misinterpretation of CBC data. Current Interpretive Data was last revised on 2018. Monocyte pct 13.5 % [facility] Comment: Interpretive Data Percent cell count [...] on 2018. Blood 10/14/2024 10:0 5 AM SIMPLEX PRINTER INSTALLER 10/14/2024 4:06 PM SIMPLEX PRINTER INSTALLER Kaur Dietrich MD LAB BL OOD ORDERABLES Final Result [facility] [address] [address] [place] [address] * (ABNORMAL) CBC with auto differential (10/14/2024 10:05 AM SIMPLEX PRINTER INSTALLER) WBC 6.4 3.8 - 9.9 K/cumm Hgb 10.6(L) 11.9 - 15.5 g/dL [facility] Hct 34.4(L) 35.6 - 45.5 % [facility] Plt 457(H) 150 - 400 K/cumm [facility] MPV 10.3 9.1 - 12.3 fL [facility] RBC 3.26(L) 3.90 - 5.20 M/cumm [facility] MCV 105.5(H) 81.3 - 96.4 fL [facility] MCH 32.5 27.1 - 33.3 pg [facility] MCHC 30.8(L) 32.3 - 35.7 g/dL [facility] RDW CV 15.4(H) 11.1 - 14.9 % [facility] RDW SD 59.6(H) 35.7 - 48.1 fL [facility] NRBC abs 0.00 0.00 - 0.01 K/cumm [facility] Blood 10/14/2024 10:0 5 AM SIMPLEX PRINTER INSTALLER 10/14/2024 4:06 PM SIMPLEX PRINTER INSTALLER Kaur Dietrich MD LAB BL OOD ORDERABLES Final Result Performing Organization Address City/[facility]/ZIP Co de Phone Number DI ADDISON [address] [address] [facility] [address] [place], [place] [id number] * (ABNORMAL) Vitamin D 25 hydroxy (10/14/2024 10:05 AM SIMPLEX PRINTER INSTALLER) Vitamin D 25-OH 97(H) 30 - 80 ng/mL Blood 10/14/2024 10:0 5 AM SIMPLEX PRINTER INSTALLER 10/14/2024 4:06 PM SIMPLEX PRINTER INSTALLER Result [facility] Kaur Dietrich MD LAB BL OOD ORDERABLES Final Result Performing Organization Address City/[facility] Co de Phone Number DI CYN [address] [address] [facility] [place] [address] * (ABNORMAL) Erythrocyte sedimentation rate (10/14/2024 10:05 AM SIMPLEX PRINTER INSTALLER) Erythrocyte sedimentation rate 34(H) 1 - 30 mm/hr Blood 10/14/2024 10:0 5 AM SIMPLEX PRINTER INSTALLER 10/14/2024 4:06 PM SIMPLEX PRINTER INSTALLER Result [facility] Kaur Dietrich MD LAB BL OOD ORDERABLES Final Result Performing Organization Address City/[facility]/ZIP Co de Phone Number HERIBERTOTRAMAINE ADDISON [address] [address] [facility] [place] [address] * CRP (acute phase) (10/14/2024 10:05 AM SIMPLEX PRINTER INSTALLER) CRP 4.1 <=10.0 mg/L Blood 10/14/2024 10:0 5 AM SIMPLEX PRINTER INSTALLER 10/14/2024 4:06 PM SIMPLEX PRINTER INSTALLER Kaur Dietrich MD LAB BL OOD ORDERABLES Final Result [place] [address] [address] Department [place] [address] * (ABNORMAL) Lipid panel (10/14/2024 10:05 AM SIMPLEX PRINTER INSTALLER) Cholesterol 208(H) 30 - 199 mg/dL Comment: Interpretive Data Ages < or = 19 years Acceptable: <170 mg/dL Borderline high: 170-199 mg/dL High: >or= 200 mg/dL Ages > or = 20 years Desirable: <200 mg/dL Borderline high: 200-239 mg/dL High: >or= 240 mg/dL Literature References: 1. Expert Panel on Integrated Guidelines for Cardiovascular Health and Risk Reduction in Children and Adolescents. Pediatrics 2011;128:S213 2. NCEP Expert Panel. Circulation 2004;110:227 Current Interpretive Data was last revised on 2018. Triglycerides 92 <=149 mg/dL DI [facility] Comment: Interpretive Data Ages < or = 9 years Acceptable: <75 mg/dL Borderline high: 75-99 mg/dL High: >or= 100 mg/dL Ages 10 to 20 years Acceptable: <90 mg/dL Borderline high: 90-129 mg/dL High: >or= 130 mg/dL Ages > or = 20 years Desirable: <150 mg/dL Borderline high: 150-199 mg/dL High: 200-499 mg/dL Very high: >or= 499 mg/dL Literature References: 1. Expert Panel on Integrated Guidelines for Cardiovascular Health and Risk Reduction in Children and Adolescents. Pediatrics 2011;128:S213 2. NCEP Expert Panel. Circulation 2004;110:227 Current Interpretive Data was last revised on 2018. HDL 98 >=40 mg/dL DI [facility] Comment: Interpretive Data Ages < or = 19 years Acceptable: >45 mg/dL Borderline low: 40-45 mg/dL Low: <40 mg/dL Ages > or = 20 years Desirable: >or= 60 mg/dL Low: <40 mg/dL Literature References: 1. Expert Panel on Integrated Guidelines for Cardiovascular Health and Risk Reduction in Children and Adolescents. Pediatrics 2011;128:S213 2. NCEP Expert Panel. Circulation 2004;110:227 Current Interpretive Data was last revised on 2018. LDL, calculated 94 <=129 mg/dL DI [facility] Comment: Interpretive Data Ages < or = 19 years Acceptable: <110 mg/dL Borderline high: 110-129 mg/dL High: >or= 130 mg/dL Ages > or = 20 years Optimal: <100 mg/dL Near optimal: 100-129 mg/dL Borderline high: 130-159 mg/dL High: >160 mg/dL Calculated using the Jr LDL-C estimating equation. This equation was implemented on 2024. Prior to this date LDL-C was estimated using the Friedewald equation. Literature References: 1. Expert Panel on Integrated Guidelines for Cardiovascular Health and Risk Reduction in Children and Adolescents. Pediatrics 2011;128:S213 2. NCEP Expert Panel. Circulation 2004;110:227 3. Jr M et al. MAXINE Cardiol. 2019February 27;5(5):540-548. doi: 10.1001/jamacardio.2020.0013 Current Interpretive Data was last revised on 2024. Non-HDL Cholesterol 110 mg/dL DI [facility]ON Comment: Interpretive Data Ages < or = 19 years Acceptable: <120 mg/dL Borderline high: 120-144 mg/dL High: >145 mg/dL Ages > or = 20 years When triglycerides are >200 mg/dL, Non-HDL cholesterol is a secondary target of therapy with treatment goals that are 30 mg/dL greater than the LDL cholesterol target. Literature References: 1. Expert Panel on Integrated Guidelines for Cardiovascular Health and Risk Reduction in Children and Adolescents. Pediatrics 2011;128:S213 2. NCEP Expert Panel. Circulation 2004;110:227 Current Interpretive Data was last revised on 2018. Chol/HDL ratio 2 DI Blood 10/14/2024 10:0 5 AM SIMPLEX PRINTER INSTALLER 10/14/2024 4:06 PM SIMPLEX PRINTER INSTALLER Kaur Dietrich MD LAB [place] [address] [address] [place] [address] * (ABNORMAL) Comprehensive metabolic panel (10/14/2024 10:05 AM SIMPLEX PRINTER INSTALLER) Sodium 131(L) 135 - 145 mmol/L Potassium, [...] >/= 126 mg/dl is diagnostic for diabetes. Fasting is defined as no caloric intake [...] classification and Diagnosis of Diabetes Diabetes Care 202; 46: S19-S40. Current interpretive data was last [...] [facility] Blood 10/14/2024 10:0 5 AM SIMPLEX PRINTER INSTALLER 10/14/2024 4:06 PM SIMPLEX PRINTER INSTALLER Kaur Dietrich MD LAB BL OOD ORDERABLES Final Result Performing Organization Address City/[place] [address] [facility] [place] [address] from Last 3 Months Insurance MEDICARE Member Subscriber Plan / Payer (Ef fective 2007-Present) Name:Preethi Casas Member ID:[id number] Relation to Subscriber:Self Name:Augusto Preethi J Subscriber ID:[id number] Payer ID:[id number] Group ID:Not on file Type:MEDICARE TRADITIONAL Address: [address] [phone] [employer] MED[employer]ARE SUPP MEDICARE [employer] MED[employer]ARE SUPP Care Teams Assistant Foreman Relationship Specialty Start Date End Date Darius Novoa MD [address] [place] [address] PCP - General 04/03/07
--- OUTSIDE RECORDS SUMMARY | 2024-12-16 12:32 | XMS_ITS | Clinical Summary ---
Author Organization [facility] Address [address] [place] [address] Care Team Providers Care Dairy Equipment Repairer Name Role Phone Darius Novoa MD Primary Care Provider [phone] Allergies Active Allergy Reactions Criticality Noted Date [...] daily. Active Cholecalciferol (VITAMIN D) 50 MCG (1999) Tab Take 50 mcg by mouth. Active Active Problems Problem Noted Date Diagnosed Date Seropositive rheumatoid arth ritis of multiple sites ([facility]) 07/13/2020 Social History Tobacco Use Types Packs/Day Years Used Date Smoking Tobacco: Never Assessed Comments Unknown Sex and Gender Information Value Date Recorded Sex Assigned at Not on file Legal Sex Female 5:32 PM CDT Gender Identity Not on file Sexual Orientation Not on file Last Filed Vital Signs Vital Sign Reading Time Taken Comments Blood Pressure 156/81 09/07/2020 10:36 AM CUTTING AND BONING SUPERVISOR Pulse 99 09/07/2020 10:36 AM CUTTING AND BONING SUPERVISOR Temperature 36.7 C (98 F) 09/07/2020 10:36 AM CUTTING AND BONING SUPERVISOR Respiratory Rate 18 09/07/2020 10:36 AM CUTTING AND BONING SUPERVISOR Oxygen Saturation 97% 09/07/2020 10:36 AM CUTTING AND BONING SUPERVISOR Inhaled Oxygen Concentration - - Weight 86.2 kg (190 lb) 09/07/2020 10:36 AM CUTTING AND BONING SUPERVISOR Height 167.6 cm (5' 6 ) 07/13/2020 [...] 75+ series) 2018 COVID-19 Vaccine ( - season) 2024 Influenza Adult (#1) 2024 07/10/2019, 07/10/2018, 07/18/2017, Additional history exists Meningococcal B Vaccine Aged Out No l onger eligible based on patient's age to complete this topic Meningococcal Vaccine Aged Out No myra sammy eligible based on patient's age to complete this topic RSV Immunizations Under 20 Months Aged Out No longer eligible based on patient's age to complete this topic Insurance MEDICARE [employer] Care Teams Dairy Equipment Repairer Relationship Specialty Start Date End Date Darius Novoa MD [address] [address] PCP - General INTERNAL MEDICINE 07/13/20
--- OUTSIDE RECORDS SUMMARY | 2024-12-16 12:32 | XMS_ITS | Referral Summary ---
Author Organization [facility] Address [address] [place] [address] Care Team Providers Care Offset Plate Maker Name Role Phone Unavailable Primary Care Provider [...]
--- OUTSIDE RECORDS SUMMARY | 2024-12-16 12:32 | XMS_ITS | Encounter Summary ---
Author Organization [facility] Address [address] [place] [address] Care Team Providers Care Fire Sprinkler Installer Name Role Phone Unavailable Primary Care Provider Unavailabl e Prior Encounters Date Type Department Care Team Description 11/18/2019 Converted CPS Chart Documents [facility] [address] [place] [address] <No scans attached> 11/18/2019 Converted 13x Documents [facility] [address] [place] [address] <No scans attached> Plan of Treatment Not on file Procedures Procedure Name Priority Date/Time Associated Diagnosis Comments [address] ATTENDANT CONSULT Routine 03/25/2021 2:00 AM CDT 3 PULP VITALITY TESTS Routine 03/25/2021 2:00 AM CDT Visit Diagnoses Not on file
--- OUTSIDE RECORDS SUMMARY | 2024-12-16 12:32 | XMS_ITS ---
Author Organization [facility] Address [address] [place] [address] Care Team Providers Care Floral Designer Name Role Phone Unavailable Unavailable Unavailable Surgery Details Not on file Complications Check Surgery Details section. Procedure Estimated Blood Loss Check Surgery Details section. Procedure Findings Check Surgery Details section. Procedure Specimens Taken Check Surgery Details section.
--- OUTSIDE RECORDS SUMMARY | 2024-12-16 12:32 | XMS_ITS | CCD ---
Author Organization [facility] [place] [place] [address] [place] [address] Care Team Providers Care Cost Estimating Manager Name Role Phone Unavailable Primary Care Provider [...]
--- OUTSIDE RECORDS SUMMARY | 2024-12-16 12:32 | XMS_ITS | Encounter Summary ---
Author Organization [facility] Address [address] [place] [address] Phone Care Team Providers Care Control Officer Manager Name Role Phone Darius Novoa MD Primary [...] on file Legal Sex Female 11:30 PM RAISE DRILL OPERATOR Gender Identity Not on file Sexual Orientation [...] on filedocumented in this encounter Care Teams Control Officer Manager Relationship Specialty Start Date End Date Darius Novoa MD [address] [place] [address] PCP - General 04/03/07 documented as of this encounter
--- OUTSIDE RECORDS SUMMARY | 2024-12-16 12:32 | XMS_ITS | Encounter Summary ---
Author Organization [facility] Address [address] [place] [address] Phone Care Team Providers Care Manager Graphic Name Role Phone Darius Novoa MD Primary [...] on file Legal Sex Female 11:30 PM ASSEMBLER PING PONG TABLE Gender Identity Not on file Sexual Orientation [...] on filedocumented in this encounter Care Teams Manager Graphic Relationship Specialty Start Date End Date Darius Novoa MD [address] [place] [address] PCP - General 04/03/07 documented as of this encounter
--- OUTSIDE RECORDS SUMMARY | 2024-12-16 12:32 | XMS_ITS | Clinical Summary ---
Author Organization [facility] Address [address] [place] [address] Care Team Providers Care Geophysical Engineer Name Role Phone Unavailable Primary Care Provider [...]
--- OUTSIDE RECORDS SUMMARY | 2024-12-16 12:32 | XMS_ITS | Clinical Summary ---
Author Organization [facility] Address [address] [place] [address] Care Team Providers Care Long Term Care Social Worker Name Role Phone Darius Novoa MD Primary [...] total) by mouth daily 90 tablet 1 Active Xarelto 20 mg tablet Take 1 tablet (20 mg total) by mouth Active aspirin 81 mg enteric coated tablet Take 1 tablet (81 mg total) by mouth daily 11/25/19 25 Discontinue d(Alternate therapy) Rinvoq 15 mg tablet extended release 24 hrIndications:Rh eumatoid Arthritis Take 15 mg by mouth daily 90 tablet 1 4 11/25/19 25 Discontinue d(Therapy completed) sulfamethoxazole -trimethoprim (BACTRIM DS) 800-160 mg per tablet Take 1 tablet by mouth every 12 (twelve) hours 11/25/19 Discontinue d(Therapy completed) nitrofurantoin (MACRODANTIN) 100 mg capsule Take 1 capsule (100 mg total) by mouth daily 12/13/19 Active Problems Problem Noted Date Diagnosed Date Seropositive rheumatoid arthritis 10/14/2024 Encounters Date Type Department Care Team Description 12/09/2024 9:53 AM SCRUB NURSE - 12/09/2024 11:59 PM SCRUB NURSE Hospital Encounter [address] [address] Seropositive rheumatoid arthritis (HCC) (Primary Dx) Discharge Disposition: Discharge to home or self care 12/02/2024 Orders Only [address] [address] Christine Christensen RN 11/25/2024 11:00 AM SCRUB NURSE - 11/25/2024 11:59 PM SCRUB NURSE Hospital Encounter [address] [address] Seropositive rheumatoid arthritis (HCC) (Primary Dx) Discharge Disposition: Discharge to home or self care 11/22/[address] [address] Violeta Almaraz MA 11/05/2024 Orders Only [address] [address] Beth Leo RN 10/15/2024 Orders Only [facility] [address] [facility] 5th [place] [address] [place] [phone] Kaur Pitts MD 10/14/2024 10:10 AM SCRUB NURSE Lab [facility] 1 [facility] [address] [place] [phone] 10/14/2024 10:05 AM SCRUB NURSE - 10/14/2024 11:59 PM SCRUB NURSE Hospital Encounter [address] [address] Rheumatoid arthritis, involving unspecified site, unspecified whether rheumatoid factor present (HCC); High risk medication use; Vitamin D deficiency, unspecified Discharge Disposition: Discharge to home or self care 10/14/2024 9:30 AM SCRUB NURSE Office Visit [facility] 1 [facility] [address] [place] [phone] Kaur Pitts MD Rheumatoid arthritis, involving unspecified site, unspecified whether rheumatoid factor present (HCC) (Primary Dx); High risk medication use; Vitamin D deficiency, unspecified 10/14/2024 Telephone [facility] 1 [facility] [address] [place] [address] Kaur Pitts MD Prior Auth (Infliximab) from Last 3 Months Surgical History Surgery [...] on file Legal Sex Female 11:30 PM SCRUB NURSE Gender Identity Not on file Sexual Orientation Not on file Obstetrics History Last Filed Vital Signs Vital Sign Reading Time Taken Comments Blood Pressure 124/58 12/09/2024 12:35 PM SCRUB NURSE Pulse 80 12/09/2024 11:35 AM SCRUB NURSE Temperature 36.5 C (97.7 F) 12/09/2024 10:00 AM SCRUB NURSE Respiratory Rate 18 12/09/2024 12:35 PM SCRUB NURSE Oxygen Saturation 97% 12/09/2024 12:35 PM SCRUB NURSE Inhaled Oxygen Concentration - - Weight 82.6 kg (182 lb) 12/09/2024 9:55 AM SCRUB NURSE Height 163.8 cm (5' 4.5 ) 10/14/2024 9:31 AM SCRUB NURSE Body Mass Index 30.76 10/14/2024 9:31 AM SCRUB NURSE Plan of Treatment Health Maintenance Due Date Last Done Comments Depression Screening 1945 Fall Risk Assessment 1945 Osteoporosis Screening-Bone Density Scan 1945 DTaP/Tdap/Td Vaccine (1 - Tdap) 1954 Zoster Vaccine (1 of 2) 1962 Well Visit 65+ 01/04/2008 Covid-19 Vaccine (6 2023-2 5 season) 2024 08/05/2023, 08/08/2022, 07/07/2021, Additional history exists Influenza Vaccine (#1) 2024 , 08/16/2021, 06/26/2020, Additional history exists Pneumococcal vaccine 65+ Completed 07/16/2023 Hepatitis B Screening Completed 07/15/2024 Procedures Procedure Name Priority Date/Time Associated Diagnosis Comments EGFR Routine 10/14/2024 10:05 AM SCRUB NURSE Rheumatoid arthritis, involving unspecified site, unspecified whether rheumatoid factor present (HCC) High risk medication use DIFFERENTIAL AUTO Routine 10/14/2024 10: 05 AM SCRUB NURSE Rheumatoid arthritis, involving unspecified site, unspecified whether rheumatoid factor present (HCC) High risk medication use VITAMIN D 25 HYDROXY Routine 10/14/2024 10:05 AM SCRUB NURSE Vitamin D deficiency, unspecified LIPID PANEL Routine 10/14/2024 10:05 AM SCRUB NURSE High risk medication use ERYTHROCYTE SEDIMENTATION RATE Routine 10/14/2024 10:05 AM SCRUB NURSE Rheumatoid arthritis, involving unspecified site, unspecified whether rheumatoid factor present (HCC) COMPREHENSIVE METABOLIC PANEL Routine 10/14/2024 10:05 AM SCRUB NURSE Rheumatoid arthritis, involving unspecified site, unspecified whether rheumatoid factor present (HCC) High risk medication use CBC WITH AUTO DIFFERENTIAL Routine 10/14/2024 10:05 AM SCRUB NURSE Rheumatoid arthritis, involving unspecified site, unspecified whether rheumatoid factor present (HCC) High risk medication use CRP (ACUTE PHASE) Routine 10/14/2024 10: 05 AM SCRUB NURSE Rheumatoid arthritis, involving unspecified site, unspecified whether rheumatoid factor present (HCC) from Last 3 Months Results * (ABNORMAL) eGFR (10/14/2024 10:05 AM SCRUB NURSE) eGFR 58(L) >=60 mL/min/1. 73 m2 Comment: [...] reviewed 2021. Blood 10/14/2024 10:0 5 AM SCRUB NURSE 10/14/2024 4:06 PM SCRUB NURSE Kaur Dietrich MD LAB BL OOD ORDERABLES Final Result [facility] [id number] [address] Department [place] [address] * (ABNORMAL) Differential, auto (10/14/2024 10:05 AM SCRUB NURSE) Neutrophil abs 4.6 1.5 - 6.5 K/cumm Imm gran abs 0.0 0.0 - 0.1 K/cumm [facility] Lymphocyte abs 0.8 0.8 - 3.3 K/cumm [facility] Monocyte abs 0.9(H) 0.2 - 0.8 K/cumm [facility] Eosinophil abs 0.0 0.0 - 0.5 K/cumm [facility] Basophil abs 0.0 0.0 - 0.1 K/cumm [facility] Neutrophil pct 72.2 % [facility] Comment: Interpretive Data Percent cell count reference ranges are not reported, since discordance with absolute values may lead to misinterpretation of CBC data. Current Interpretive Data was last revised on 2018. Imm gran pct 0.6 % [facility] Comment: Interpretive Data Percent cell count reference ranges are not reported, since discordance with absolute values may lead to misinterpretation of CBC data. Current Interpretive Data was last revised on 2018. Lymphocyte pct 12.7 % [facility] Comment: Interpretive Data Percent cell count reference ranges are not reported, since discordance with absolute values may lead to misinterpretation of CBC data. Current Interpretive Data was last revised on 2018. Monocyte pct 13.5 % [facility] Comment: Interpretive Data Percent cell count reference ranges are not reported, since discordance with absolute values may lead to misinterpretation of CBC data. Current Interpretive Data was last revised on 2018. Eosinophil pct 0.5 % [facility] Comment: Interpretive Data Percent cell count reference ranges are not reported, since discordance with absolute values may lead to misinterpretation of CBC data. Current Interpretive Data was last revised on 2018. Basophil pct 0.5 % [facility] Comment: Interpretive Data Percent cell count reference ranges are not reported, since discordance with absolute values may lead to misinterpretation of CBC data. Current Interpretive Data was last revised on 2018. Blood 10/14/2024 10:0 5 AM SCRUB NURSE 10/14/2024 4:06 PM SCRUB NURSE Kaur Dietrich MD LAB BL OOD ORDERABLES Final Result [facility] [id number] [address] [place] [address] * (ABNORMAL) CBC with auto differential (10/14/2024 10:05 AM SCRUB NURSE) WBC 6.4 3.8 - 9.9 K/cumm Hgb 10.6(L) 11.9 - 15.5 g/dL [facility] Hct 34.4(L) 35.6 - 45.5 % [facility] Plt 457(H) 150 - 400 K/cumm [facility] MPV 10.3 9.1 - 12.3 fL [facility] RBC 3.26(L) 3.90 - 5.20 M/cumm [facility] MCV 105.5(H) 81.3 - 96.4 fL [facility] MCH 32.5 27.1 - 33.3 pg [facility] MCHC 30.8(L) 32.3 - 35.7 g/dL [facility] RDW CV 15.4(H) 11.1 - 14.9 % [facility] RDW SD 59.6(H) 35.7 - 48.1 fL [facility] NRBC abs 0.00 0.00 - 0.01 K/cumm [facility] Blood 10/14/2024 10:0 5 AM SCRUB NURSE 10/14/2024 4:06 PM SCRUB NURSE Kaur Dietrich MD LAB BL OOD ORDERABLES Final Result [facility] [place] [id number] [facility] [email or web address] [address] * (ABNORMAL) Vitamin D 25 hydroxy (10/14/2024 10:05 AM SCRUB NURSE) Vitamin D 25-OH 97(H) 30 - 80 ng/mL Blood 10/14/2024 10:0 5 AM SCRUB NURSE 10/14/2024 4:06 PM SCRUB NURSE Kaur Dietrich MD LAB BL OOD ORDERABLES Final Result Performing Organization Address [facility] Co de Phone Number HERIBERTOTRAMAINE [place]DIS[place] [address] [facility] [email or web address] [address] * (ABNORMAL) Erythrocyte sedimentation rate (10/14/2024 10:05 AM SCRUB NURSE) Erythrocyte sedimentation rate 34(H) 1 - 30 mm/hr Blood 10/14/2024 10:0 5 AM SCRUB NURSE 10/14/2024 4:06 PM SCRUB NURSE Kaur Dietrich MD LAB BL OOD ORDERABLES Final Result Performing Organization Address City/[facility]/ZIP Co de Phone Number DI CYN [address] [facility] [email or web address] [address] * CRP (acute phase) (10/14/2024 10:05 AM SCRUB NURSE) CRP 4.1 <=10.0 mg/L Blood 10/14/2024 10:0 5 AM SCRUB NURSE 10/14/2024 4:06 PM SCRUB NURSE Kaur Dietrich MD LAB BL OOD ORDERABLES Final Result [facility]IBERTOTRAMAINE [place] [id number] [address] Department [place] [address] * (ABNORMAL) Lipid panel (10/14/2024 10:05 AM SCRUB NURSE) Cholesterol 208(H) 30 - 199 mg/dL Comment: [...] 3. Jr M et al. MAXINE Cardiol. 2020 February 27;5(5):540-548. [...] revised on 2018. Chol/HDL ratio 2 DI [facility]DISON Blood 10/14/2024 10:0 5 AM SCRUB NURSE 10/14/2024 4:06 PM SCRUB NURSE Kaur Dietrich MD LAB BL OOD ORDERABLES Final Result [facility] [place] [id number] [address] Department [place] [address] * (ABNORMAL) Comprehensive metabolic panel (10/14/2024 10:05 AM SCRUB NURSE) Sodium 131(L) 135 - 145 mmol/L Potassium, [...] CERNER CH Blood 10/14/2024 10:0 5 AM SCRUB NURSE 10/14/2024 4:06 PM SCRUB NURSE Kaur Dietrich MD LAB BL OOD ORDERABLES Final Result [facility] [id number] [address] Department [place] [address] from Last 3 Months Insurance MEDICARE [facility] MEDICARE SUPP MEDICARE [facility] MEDICARE SUPP Care Teams Long Term Care Social Worker Relationship Specialty Start Date End Date Darius Novoa MD [address] [place] [address] PCP - General 04/03/07
== END 2024-12-16 09:43 | disposition home or self-care (01) ==
PROVIDERS: PCP Emergency Medicine; Visit Provider Physician Assistant Medical
DX: N20.0 Calculus of kidney (principal)
CPT/HCPCS: 74018

== ENCOUNTER 2025-01-06 10:21 | Outpatient (CLI) | payer MEDICARE, SELFPAY ==
--- NOTE | ~2025-01-06 | CT_ITS ---
Non-contrast CT scan of the Abdomen and Pelvis Clinical indication: Kidney stones Technique: 2.5 mm axial scans were obtained through the abdomen and pelvis without intravenous or or al contrast. Dose reduction technique was used on this scan by utilizing automated exposure control a nd iterative reconstruction technique. The dose-length product (DLP) was 559.33 mGy-cm. Findings: Images through the lung bases reveal discoid bibasilar atelectasis or scarring. Somewhat staghorn type calculus at the right lower pole present, measuring up to 1.5 cm in diameter. Nonobstructing left renal stone measures up to 7 mm in diameter. No ureteral stone or definite hydron ephrosis. The liver, spleen, pancreas, and adrenals appear normal. Small gallstone present. There is no aortic aneurysm. There is no evidence of bowel obstruction. There is sigmoid diverticulosis. Images through the pelvis were performed. There is no evidence of ascites or lymphadenopathy. Urinary bladder unremarkable. No pelvic mass seen. Chronic T12 compression fracture present. Impression: Nonobstructing bilateral nephrolithiasis, as detailed above. Cholelithiasis. Chronic T12 compression fracture. Reviewed, dictated and finalized at [facility]. Impression: Nonobstructing bilateral nephrolithiasis, as detailed above. Cholelithiasis. Chronic T12 compression fracture.
== END 2025-01-06 10:22 | disposition home or self-care (01) ==
LOC: GOSHIMG 10:22
PROVIDERS: PCP Emergency Medicine; Visit Provider Urology
DX: N20.0 Calculus of kidney (principal); K80.20 Calculus of gallbladder without cholecystitis without obstruction; S22.080S Wedge compression fracture of T11-T12 vertebra, sequela; X58.XXXS Exposure to other specified factors, sequela
CPT/HCPCS: 74176

== ENCOUNTER 2025-01-28 09:14 | Outpatient (CLI) | payer MEDICARE, OTHER, SELFPAY ==
--- NOTE | ~2025-01-28 | US_ITS ---
EXAMINATION:US venous doppler LE RT INDICATION:Acute embolism. Evaluate for thrombosis. Previous peroneal vein thrombosis. TECHNIQUE: Multiple grayscale, color flow and Doppler images of the right lower extremity deep venous systems were obtained and reviewed. COMPARISON:Ultrasound dated 09/09/2024 FINDINGS: The common femoral, superficial femoral and popliteal veins demonstrate normal respiratory variation, augmentation and compressibility. Color flow is also seen within the posterior tibial, pe roneal, greater saphenous and profunda veins. There is complex hypoechoic soft tissue medial to the r ight knee measuring 3.4 x 4.6 x 1.8 cm, possibly hematoma. Recommend follow-up ultrasound as clinical ly warranted. IMPRESSION: 1: No lower extremity deep venous thrombosis. Reviewed, dictated and finalized at location A.
--- OUTSIDE RECORDS SUMMARY | 2025-01-28 09:47 | XMS_ITS | Clinical Summary ---
Author Organization [facility] Address [address] [place] [address] Care Team Providers Care Belt Splicer Name Role Phone Darius Novoa MD Primary Care Provider [phone] Allergies Active Allergy Reactions Criticality Noted Date [...] Seropositive rheumatoid arth ritis of multiple sites ([facility]) 07/13/2020 Social History Tobacco Use Types Packs/Day Years Used Date Smoking Tobacco: Never Assessed Comments Unknown Sex and Gender Information Value Date Recorded Sex Assigned at Not on file Legal Sex Female 5:32 PM CDT Gender Identity Not on file Sexual Orientation Not on file Last Filed Vital Signs Vital Sign Reading Time Taken Comments Blood Pressure 156/81 09/07/2020 10:36 AM INCIDENT RESPONSE ANALYST Pulse 99 09/07/2020 10:36 AM INCIDENT RESPONSE ANALYST Temperature 36.7 C (98 F) 09/07/2020 10:36 AM INCIDENT RESPONSE ANALYST Respiratory Rate 18 09/07/2020 10:36 AM INCIDENT RESPONSE ANALYST Oxygen Saturation 97% 09/07/2020 10:36 AM INCIDENT RESPONSE ANALYST Inhaled Oxygen Concentration - - Weight 86.2 kg (190 lb) 09/07/2020 10:36 AM INCIDENT RESPONSE ANALYST Height 167.6 cm (5' 6 ) 07/13/2020 [...] this topic Insurance MEDICARE [employer] Care Teams Belt Splicer Relationship Specialty Start Date End Date Darius Novoa MD [address] [address] PCP - General INTERNAL MEDICINE 07/13/20
--- OUTSIDE RECORDS SUMMARY | 2025-01-28 09:47 | XMS_ITS | Encounter Summary ---
Author Organization [facility] Address [address] [place] [address] Phone Care Team Providers Care Lens Molding Equipment Operator Name Role Phone Darius Novoa MD Primary Care Provide r Encounter Details Date Type Department Care Team (Late st Contact Info) Description 01/27/2025 11:[address] [facility] Infectious Diseases [address] [place] [address] [address] [place] [phone] Social History Tobacco Use Types Packs/Day Years Used Date Smoking Tobacco: Never Smokeless Tobacco: Never Comments Unknown Sex and Gender Information Value Date Recorded Sex Assigned at Not on file Legal Sex Female 11:30 PM TRANSITIONAL NURSE Gender Identity Not on file Sexual Orientation Not on file documented as of this encounter Plan of Treatment Not on file documented as of this encounter Visit Diagnoses Not on filedocumented in this encounter Care Teams Lens Molding Equipment Operator Relationship Specialty Start Date End Date Darius Novoa MD [address] [place] [address] PCP - General 04/03/07 documented as of this encounter
--- OUTSIDE RECORDS SUMMARY | 2025-01-28 09:47 | XMS_ITS | Encounter Summary ---
Author Organization [facility] Address [address] [place] [address] Phone Care Team Providers Care Reservation Sales Agent Name Role Phone Darius Novoa MD Primary Care Provide r Reason for Referral * Consultation (Routine) - Authorized Specialty Diagnoses / Procedures Referred By Ashtyn t Referred To Contact Physical Therapy Diagnoses Osteoarthritis, unspecified osteoarthritis type, unspecified site Kaur Pitts MD [address] [place] [address] Phone: tel: fax: External Order Referral ID Status Reason Start Date Expiration Date Visits Requested Visits Authorized [id number] Authorized Specialty Services Required 01/27/2025 02/26/2026 24 24 Question Answer PTRFR PT Evaluate and Treat Therapy options discussed with patient? Yes Location provided for therapy services is: Patient requested/Patient preferred Please select the performing region: External Order [[id number]] # of visits: 24 Comments Eval and treat for osteoarthritis of shoulders, hips and knees and for deconditioning Reason for Visit * Consultation (Routine) - Authorized Specialty Diagnoses / Procedures Referred By Contcr t Referred To Contact Rheumatology Diagnoses Rheumatoid arthritis, involving unspecified site, unspecified whether rheumatoid factor present (HCC) Shameka Uribe MD Phone: tel: fax: [facility] (All Locations) Referral ID Status Reason Start Date Expiration Date Visits Requested Visits Authorized [id number] Authorized Specialty Services Required 04/11/2024 05/11/2026 12 12 Encounter Details Date Type Department Care Team (Latest Contact Info) Description 01/27/2025 11:00 AM CDT Office Visit [facility] Rheumatology [address] [facility] [address] [place] [id number] Kaur Pitts MD [address] [place] [address] Rheumatoid arthritis, involving unspecified site, unspecified whether rheumatoid factor present (HCC) (Primary Dx); Hypervitaminosis D; Osteoarthritis, unspecified osteoarthritis type, unspecified site; High risk medication use Social History Tobacco Use Types Packs/Day Years Used Date Smoking Tobacco: Never Smokeless Tobacco: Never Tobacco Cessation:Counseling Given: Not Answered Comments Unknown Sex and Gender Information Value Date Recorded Sex Assigned at Not on file 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 Gender Identity Not on file Sexual Orientation Not on file documented as of this encounter Last Filed Vital Signs Vital Sign Reading Time Taken Comments Blood Pressure 146/80 01/27/2025 10:43 AM CDT Pulse 92 01/27/2025 10:43 AM CDT Temperature 36.7 C (98.1 F) 01/27/2025 10:43 AM CDT Respiratory Rate - - Oxygen Saturation 92% 01/27/2025 10:43 AM CDT Inhaled Oxygen Concentration - - Weight 85.3 kg (188 lb) 01/27/2025 10:43 AM CDT Height 163.8 cm (5' 4.5 ) 01/27/2025 10:43 AM CD T Body Mass Index 31.77 01/27/2025 10:43 AM CDT documented in this encounter Patient Instructions * Patient Instructions* Kaur Pitts MD - 01/27/2025 11:00 AM CDT Continue methotrexate 4 tabs once a week and folic acid 1 mg once daily Continue with the infusions as scheduled for now and we will reassess in about 10 weeks Labs today Referral placed for physical therapy to evaluate and treat documented in this encounter Progress Notes * Kaur Pitts MD - 01/27/2025 11:00 AM CDT PATIENT NAME: Preethi Casas : 1945 [place]: 01/27/2025 Subjective Chief Complaint: ROV. Rheumatological disease: Rheumatoid arthritis Rheumatological medication: Methotrexate 10 mg weekly + folate supplementation and infliximab infusions 3 mg/kg Q 8 weeks Last clinic visit: Oct 14. History of Present Illness: A pleasant 80 y.o. female with past medical history significant for rheumatoid arthritis, hypertension, hyperlipidemia, osteoporosis, cataracts, and nonmelanotic skin cancers presenting to the clinicfor a follow up visit of Rheumatoid Arthritis Interval History: She was last seen on Oct 14. Since last visit, patient reported transitioning from Rinvoq to infliximab infusions, tolerating infusions well, completed loading rounds in 01/06, and reports doing generally well, less fatigue, denies developing any flare-up episode of rheumatoid arthritis, however, she developed activity-related pain in her shoulders and knees. Also noted some swelling of her fingers last week, reports morning stiffness lasting for about an hour. Denies rashes, fevers, chills,night sweats, unintentional weight loss, eye pain or redness. She reported developing UTI 1 time and symptoms resolved. ROS: All systems negative except HPI. Disease History: On IOV 06/2024; She had a main complaints of back pain and fatigue that has been going on for the past 6 months. Overall she describes being diagnosed with rheumatoid arthritis in 1992 and since then she was treated with methotrexate and prednisolone for years then established care at [facility] in was put on Orencia infusions which help controlling her symptoms significantly, took it for about 5 years until her provider at the time Dr. Kahn, treatment was interrupted in 2019 but when she was to restart Orencia she was unable to due to insurance denial, reportedly. For the past few years, she has been on Rinvoq and methotrexate 10 mg weekly and described it is providing similar levelof pain control in her joints. She also reported taking prednisolone as needed for joint pain flare-ups, recalls last time taken was over a year ago. He also complained of worsening fatigue and insomnia for the past 6 months, she reports fatigue hasbeen notable, being pain in her back which she labeled as 8/10, dull aching, especially upper back,beside her back she complained of longstanding knees pain R> L for which she is getting steroid injection and follows with Orthopedics with the plan septoplasty in the near future. Otherwise, patient denies developing any recent flare-up, denies significant joint swelling or prolonged morning stiffness, describes morning stiffness lasting for about 30 minutes Up-to-date on her cancer screening per patient report, had a colonoscopy completed 2 years ago, mammogram and DEXA scan this month, reportedly, mg was normal. Had a history of precancerous cells in the uterus and completed hysterectomy with bilateral oophorectomy many years ago. Review of system was unremarkable otherwise, denies fevers, chills, unintentional weight loss, lossof appetite, red painful eyes, shortness of breath, chest pain, in rashes, oral ulcers, recent infection. Denies abdominal pain, N/V/D/C, blood in the stool or blood in the urine. Lung family history of malignancies mother had breast and ovarian cancers and 2 sister had ovarian cancer. PMHx: Past Medical History: Diagnosis Date Anemia Back pain Blurred vision Cataract 12/1999 Right eye Cataract 07/2000 left eye Dry mouth Fatigue with tiredness Hair loss High cholesterol Hypertension Joint problem Knees, ankles, hands Morning stiffness of joints Muscle weakness Numbness and tingling Osteoarthritis Osteoporosis Rheumatoid arthritis (HCC) 10/1991 Skin cancer 07/1998 Not melanoma 1997-now Sleeping difficulty PSHx: Past Surgical History: Procedure Laterality Date BACK SURGERY 02/1993 COLONOSCOPY 07/19/2007 COLONOSCOPY 05/08/2012 HYSTERECTOMY 09/1992 left ovary REFRACTIVE SURGERY Left 01/2012 REFRACTIVE SURGERY Right 01/2012 Social Hx: reports that she has never smoked. She has never used smokeless tobacco. Denies alcohol consumption FHx: Family History Problem Relation Age of Onset Arthritis Mother Cancer Mother Other (Other) Mother Heart problems Melanoma Father Other (Other) Father heart problems Cancer Sister Other (Other) Brother heart problems MEDICATIONS: Current Outpatient Medications Medication Sig Dispense Refill acetaminophen (TYLENOL) 325 mg tablet Take 2 tablets (650 mg total) by mouth every 6 (six) hours asneeded alendronate (FOSAMAX) 70 mg tablet amLODIPine (NORVASC) 10 mg tablet Take 0.5 tablets (5 mg total) by mouth daily ascorbic acid (VITAMIN C) 100 mg tablet Take 5 tablets (500 mg total) by mouth daily aspirin 81 mg enteric coated tablet Take 1 tablet (81 mg total) by mouth daily cholecalciferol (VITAMIN D-3) 2000 unit tablet Take 50 mcg by mouth docusate sodium (COLACE) 100 mg capsule Take 1 capsule (100 mg total) by mouth 2 (two) times a day as needed ezetimibe (ZETIA) 10 mg tablet folic acid (FOLVITE) 1 mg tablet Take 1 tablet (1 mg total) by mouth daily 90 tablet 1 losartan-hydrochlorothiazide (HYZAAR) 100-25 mg per tablet methotrexate 2.5 mg tablet Take 4 tablets (10 mg total) by mouth once a week 48 tablet 1 pravastatin (PRAVACHOL) 10 mg tablet Take 1 tablet (10 mg total) by mouth daily Rinvoq 15 mg tablet extended release 24 hr Take 15 mg by mouth daily 90 tablet 1 valACYclovir (VALTREX) 500 mg tablet No current facility-administered medications for this visit. ALLERGIES: Allergies Allergen Reactions Ketamine Dizziness and Unknown OBJECTIVE: Physical Examination: Vitals: BP 146/80 (BP Location: Left arm, Patient Position: Sitting) Pulse 92 Temp 36.7 ??C (98.1 ??F) (Temporal) Ht 163.8 cm (5' 4.5 ) Wt 85.3 kg (188 lb) SpO2 92% BMI 31.77 kg/m?? General: Alert, Cooperative, No distress Skin: (no) Rash , (no) Nodules MSK R hand Ulnar deviation. Hands, wrists, and elbows without synovial swelling, increased warmth, tenderness to palpation, or overlying erythema. HEENT (no) Scleral injection, (no) Oral ulcers, intact EOM Lungs: Clear to auscultation bilaterally Heart: Regular rate and rhythm, S1, S2 normal Abdomen: Soft without mass, Non-tender Investigations: Lab Results Component Value Date WBC 6.4 10/14/2024 HGB 10.6 (L) 10/14/2024 HCT 34.4 (L) 10/14/2024 MCV 105.5 (H) 10/14/2024 LABPLAT 457 (H) 10/14/2024 Lab Results Component Value Date AST 28 10/14/2024 ALT 15 10/14/2024 CREATININE 0.98 10/14/2024 Urine studies: No components found for: UZO160 , No components found for: UA , LASTURINETOX Lipid panel: Lab Results Component Value Date CHOL 208 (H) 10/14/2024 HDL 98 10/14/2024 LDLCALC 94 10/14/2024 TRIG 92 10/14/2024 CHOLHDL 2 10/14/2024 Muscle enzymes: No results found for: CK , ALDOLASE SLE serologies: No components found for: ZZX415 , VIS1506 , [id number] APS serologies: No components found for: VXS824 , BMP9502 , EVT776 Inflammatory markers: Lab Results Component Value Date SEDRATE 34 (H) 10/14/2024 CRP 4.1 10/14/2024 No results found. ASSESSMENT/PLAN: Preethi Casas is a 80 y.o. female with past medical history significant for rheumatoid arthritis,hypertension, hyperlipidemia, osteoporosis, cataracts, and nonmelanotic skin cancers presenting to the clinic for a follow up visit of Rheumatoid Arthritis #Rheumatoid arthritis #Osteoarthritis #Fatigue Patient was diagnosed with rheumatoid arthritis in 1992, and reported disease controlled for most of the years. Currently on methotrexate 10 mg weekly+ 1 mg folic acid daily and Rinvoq 15 mg daily is good disease control, she also takes prednisone at times for flare-up which she has not done this year. denies significant joint pain in peripheral joints, joint swelling or prolonged morning stiffness Drug history: Orencia infusions stopped 2-3 years ago due to insurance denial, reportedly. She unfortunately developed provoked DVT following a mechanical fall, and reported history of UTI. Both led to recommendation against continuing Rinvoq. Discussed with the patient that alternatively,we will trial switching to TNFi infusions. Explained risks and benefits, patient is agreeable Infliximab started in November 18, 2024, has been tolerating infusions well and reports sustained disease control, denies any flare-up episodes or medication tolerance. However, patient reports mixed symptoms of inflammatory and noninflammatory joint pain. Hips and knees pain our activity-related, consistent with osteoarthritis for which we recommended conservative measures while she still early in the course of infliximab infusion. We will plan to reassess in 8 weeks No synovitis on examination Plan Continue methotrexate 10 mg weekly and folic acid 1 mg daily Continue infliximab maintenance dose of 3 mg/kg Q 8 weeks we will reassess about 6 weeks from the next round Check CBC, and CMP, ESR and CRP Recommended physical therapy for osteoarthritis and deconditioning Bone health: -DEXA: Patient had osteoporosis, had a recent DEXA scan 2-3 months ago, on Fosamax managed by PCP -Vitamin D: Hypervitaminosis on last visit, recommended holding off vitamin saw D supplements, and we will plan to recheck levels today -Encouraged calcium rich diet intake -Weight bearing exercises as able. High risk medication use: - On methotrexate and infliximab in place of rinvoq -T-spot - negative 06/2024 -Hepatitis B and C serologies - negative 06/2024 -CBC and CMP Q 3-6 months for methotrexate use Immunizations: Immunization History Administered Date(s) Administered COVID-19 mRNA ([employer]) 0.3 mL (30 mcg) vaccine (12 years and up) 08/05/2023 [employer] SARS-CoV-2 Monovalent Vaccination (12+ Yrs) PURPLE 12/28/2020, 01/18/2021, 07/07/2021 Pfizer Sars-Cov-2 Bivalent Vaccination (12+ YRS) 08/08/2022 Follow up: No follow-ups on file. Kaur Root MD [employer] This note was generated in-part with voice recognition software. All attempts were made to correct any child care assistant and/or typographical errors that can occur, but some errors may still exist. documented in this encounter Plan of Treatment Scheduled Referrals Name Type Priority Associated Diagnoses Orde r Schedule Ambulatory referral order to Physical Therapy - Outpatient Referral Routine Osteoarthritis, unspecified osteoarthritis type, unspecified site Expected: 02/10/2025 (Approximate), Expires: 01/27/2026 documented as of this encounter Results * (ABNORMAL) CRP (acute phase) (01/27/2025 11:24 AM CDT) Pathologist [facility] [place] CRP 43.4(H) <=10.0 mg/L Blood 01/27/2025 11:2 4 AM CDT 01/27/2025 8:21 PM CDT Kaur Dietrich MD LAB BL OOD ORDERABLES Final Result [facility] [address] Department [place] [address] * (ABNORMAL) CBC with auto differential (01/27/2025 11:24 AM CDT) Pathologist [facility] [place] WBC 8.1 3.8 - 9.9 K/cumm Hgb 11.5(L) 11.9 - 15.5 g/dL [facility] Hct 36.3 35.6 - 45.5 % [facility] Plt 446(H) 150 - 400 K/cumm [facility] MPV 10.0 9.1 - 12.3 fL [facility] RBC 3.74(L) 3.90 - 5.20 M/cumm [facility] MCV 97.1(H) 81.3 - 96.4 fL [facility] MCH 30.7 27.1 - 33.3 pg [facility] MCHC 31.7(L) 32.3 - 35.7 g/dL [facility] RDW CV 16.0(H) 11.1 - 14.9 % [facility] SD 57.1(H) 35.7 - 48.1 fL [facility] NRBC abs 0.00 0.00 - 0.01 K/cumm [facility] Blood 01/27/2025 11:2 4 AM CDT 01/27/2025 8:20 PM CDT Kaur Dietrich MD LAB [place] [address] [address] Department [place] [address] * (ABNORMAL) Comprehensive metabolic panel (01/27/2025 11:24 AM CDT) Sodium 132(L) 135 - 145 mmol/L Potassium, pl 3.4 3.3 - 4.9 mmol/L [facility] Chloride 89(L) 97 - 110 mmol/L [facility] CO2 28 22 - 32 mmol/L [facility] Anion gap 15 2 - 15 mmol/L [facility] BUN 12 6 - 25 mg/dL [facility] Creatinine 0.90 0.60 - 1.10 mg/dL [facility] Glucose 86 70 - 199 mg/dL [facility] Comment: [...] - 10.3 mg/dL [facility] Bilirubin, total 0.5 0.1 - 1.2 mg/dL [facility] Protein, pl 7.7 6.5 - 8.5 g/dL [facility] Albumin 4.3 3.5 - 5.0 g/dL [facility] Alk phos 80 40 - 130 Units/L [facility] ALT 19 7 - 45 Units/L [facility] AST 35 10 - 45 Units/L [facility] Blood 01/27/2025 11:2 4 AM CDT 01/27/2025 8:21 PM CDT Kaur Dietrich MD LAB BL OOD ORDERABLES Final Result [facility] [address] [facility] [place] [address] [place] [address] * (ABNORMAL) Erythrocyte sedimentation rate (01/27/2025 11:24 AM CDT) Erythrocyte sedimentation rate 41(H) 1 - 30 mm/hr Blood 01/27/2025 11:2 4 AM CDT 01/27/2025 8:20 PM CDT Kaur Dietrich MD LAB BL OOD ORDERABLES Final Result Performing Organization Address City/[facility]/ZIP Co de Phone Number [facility] [address] [facility] [address] [place] [address] * Vitamin D 25 hydroxy (01/27/2025 11:24 AM CDT) Vitamin D 25-OH 69 30 - 80 ng/mL Blood 01/27/2025 11:2 4 AM CDT 01/27/2025 8:20 PM CDT Kaur Dietrich MD LAB BL OOD ORDERABLES Final Result [facility] [address] [place] [address] documented in this encounter Visit Diagnoses Diagnosis Rheumatoid arthritis, involving unspecified site, unspecified whether rheumatoid factor present (HCC)- Primary Hypervitaminosis D Osteoarthritis, unspecified osteoarthritis type, unspecified site High risk medication use documented in this encounter Historical Medications * This list may reflect changes made after this encounter. CALCIUM CITRATE-VITAMIN D3 ORAL Take by mouth nitrofurantoin (MACRODANTIN) 50 mg capsule 01/27/2025 added in this encounter Care Teams Reservation Sales Agent Relationship Specialty Start Date End Date Darius Novoa MD [address] [place] [address] PCP - General 04/03/07 documented as of this encounter
--- OUTSIDE RECORDS SUMMARY | 2025-01-28 09:47 | XMS_ITS | Encounter Summary ---
Author Organization [facility] Healthcare Address [address] [place] [address] Care Team Providers Care Automation Qa Analyst Name Role Phone Darius Novoa MD Primary Care Provide r Encounter Details Date Type Department Care Team (Latest Contact Info) Description 01/27/2025 11:24 AM CDT - 01/27/2025 11:59 PM CDT Hospital Encounter [facility] [id number] [place] [id number] Rheumatoid arthritis, involving unspecified site, unspecified whether rheumatoid factor present (HCC); Hypervitaminosis D Discharge Disposition: Discharge to home or self care Social History Tobacco Use Types Packs/Day Years Used Date Smoking Tobacco: Never Smokeless Tobacco: Never Comments Unknown Sex and Gender Information Value Date Recorded Sex Assigned at Not on file 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 Gender Identity Not on file Sexual Orientation Not on file documented as of this encounter Medications at Time of Discharge acetaminophen (TYLENOL) 325 mg tablet Take 2 tablets (650 mg total) by mouth every 6 (six) hours as needed alendronate (FOSAMAX) 70 mg tablet Take 1 tablet (70 mg total) by mouth 06/26/2024 amLODIPine (NORVASC) 10 mg tablet Take 0.5 tablets (5 mg total) by mouth daily ascorbic acid, vitamin C, 500 mg capsule Take 500 mg by mouth daily CALCIUM CITRATE-VITAMIN D3 ORAL Take by mouth docusate sodium (COLACE) 100 mg capsule Take 1 capsule (100 mg total) by mouth 2 (two) times a day as needed ezetimibe (ZETIA) 10 mg tablet 06/22/2024 folic acid (FOLVITE) 1 mg tabletIndications: Rheumatoid arthritis, involving unspecified site, unspecified whether rheumatoid factor present (HCC),High risk medication use Take 1 tablet (1 mg total) by mouth daily 90 tablet 1 08/02/2024 losartan-hydroCHLO ROthiazide (HYZAAR) 50-12.5 mg per tablet 05/15/2024 methotrexate 2.5 mg tabletIndications: Rheumatoid arthritis, involving unspecified site, unspecified whether rheumatoid factor present (HCC) TAKE 4 TABLETS ONCE A WEEK 48 tablet 3 01/20/2025 nitrofurantoin (MACRODANTIN) 50 mg capsule 01/27/2025 pravastatin (PRAVACHOL) 10 mg tablet Take 1 tablet (10 mg total) by mouth daily valACYclovir (VALTREX) 500 mg tablet 05/14/2024 Xarelto 20 mg tablet Take 1 tablet (20 mg total) by mouth 09/10/2024 documented as of this encounter Discharge Disposition Disposition Code Departure Means Destination Discharge to home or self care documented in this encounter Plan of Treatment Not on file documented as of this encounter Procedures Procedure Name Priority Date/Time Associated Diagnosis Comments EGFR Routine 01/27/2025 11:24 AM CDT Rheumatoid arthritis, involving unspecified site, unspecified whether rheumatoid factor present (HCC) DIFFERENTIAL AUTO Routine 01/27/2025 11: 24 AM CDT Rheumatoid arthritis, involving unspecified site, unspecified whether rheumatoid factor present (HCC) CBC WITH AUTO DIFFERENTIAL Routine 01/27/2025 11:24 AM CDT Rheumatoid arthritis, involving unspecified site, unspecified whether rheumatoid factor present (HCC) VITAMIN D 25 HYDROXY Routine 01/27/2025 11:24 AM CDT Hypervitaminosis D ERYTHROCYTE SEDIMENTATION RATE Routine 01/27/2025 11:24 AM CDT Rheumatoid arthritis, involving unspecified site, unspecified whether rheumatoid factor present (HCC) CRP (ACUTE PHASE) Routine 01/27/2025 11: 24 AM CDT Rheumatoid arthritis, involving unspecified site, unspecified whether rheumatoid factor present (HCC) COMPREHENSIVE METABOLIC PANEL Routine 01/27/2025 11:24 AM CDT Rheumatoid arthritis, involving unspecified site, unspecified whether rheumatoid factor present (HCC) documented in this encounter Results * eGFR (01/27/2025 11:24 AM CDT) eGFR 64 >=60 mL/min/1. 73 m2 Comment: Interpretive Data [...] interpretive data was last reviewed 2021. Blood 01/27/2025 11:2 4 AM CDT 01/27/2025 8:24 PM CDT Kaur Dietrich MD [place] [id number] [address] Department [place] [address] * Differential, auto (01/27/2025 11:24 AM CDT) Neutrophil abs 6.5 1.5 - 6.5 K/cumm Imm gran abs 0.1 0.0 - 0.1 K/cumm [facility] Lymphocyte abs 0.9 0.8 - 3.3 K/cumm [facility] Monocyte abs 0.6 0.2 - 0.8 K/cumm [facility] Eosinophil abs 0.1 0.0 - 0.5 K/cumm [facility] Basophil abs 0.0 0.0 - 0.1 K/cumm [facility] Neutrophil pct 79.3 % [facility] Comment: Interpretive Data Percent cell count reference ranges are not reported, since discordance with absolute values may lead to misinterpretation of CBC data. Current Interpretive Data was last revised on 2018. Imm gran pct 0.6 % [facility] Comment: Interpretive Data Percent cell count reference ranges are not reported, since discordance with absolute values may lead to misinterpretation of CBC data. Current Interpretive Data was last revised on 2018. Lymphocyte pct 11.3 % [facility] Comment: Interpretive Data Percent cell count reference ranges are not reported, since discordance with absolute values may lead to misinterpretation of CBC data. Current Interpretive Data was last revised on 2018. Monocyte pct 7.4 % [facility] Comment: Interpretive Data Percent cell count reference ranges are not reported, since discordance with absolute values may lead to misinterpretation of CBC data. Current Interpretive Data was last revised on 2018. Eosinophil pct 0.9 % [facility] Comment: Interpretive Data Percent cell count reference ranges are not reported, since discordance with absolute values may lead to misinterpretation of CBC data. Current Interpretive Data was last revised on 2018. Basophil pct 0.5 % [facility] Comment: Interpretive Data Percent cell count reference ranges are not reported, since discordance with absolute values may lead to misinterpretation of CBC data. Current Interpretive Data was last revised on 2018. Blood 01/27/2025 11:2 4 AM CDT 01/27/2025 8:20 PM CDT Kaur Dietrich MD LAB BL OOD ORDERABLES Final Result DI [place] [address] [address] Department [place] [address] * Vitamin D 25 hydroxy (01/27/2025 11:24 AM CDT) Pathologist [facility] Vitamin D 25-OH 69 30 - 80 ng/mL Blood 01/27/2025 11:2 4 AM CDT 01/27/2025 8:20 PM CDT Kaur Dietrich MD LAB BL OOD ORDERABLES Final Result Performing Organization Address City/[facility]/ZIP Co de Phone Number DI ADDISON [address] [address] Department [place] [address] * (ABNORMAL) Erythrocyte sedimentation rate (01/27/2025 11:24 AM CDT) Pathologist [facility] Erythrocyte sedimentation rate 41(H) 1 - 30 mm/hr Blood 01/27/2025 11:2 4 AM CDT 01/27/2025 8:20 PM CDT Kaur Dietrich MD LAB BL OOD ORDERABLES Final Result Performing Organization Address [facility] Co de Phone Number DI [place]DISON [address] [address] Department [place] [address] * (ABNORMAL) Comprehensive metabolic panel (01/27/2025 11:24 AM CDT) Pathologist [facility] Sodium 132(L) 135 - 145 mmol/L Potassium, pl 3.4 3.3 - 4.9 mmol/L [facility] Chloride 89(L) 97 - 110 mmol/L [facility] CO2 28 22 - 32 mmol/L [facility] Anion gap 15 2 - 15 mmol/L [facility] BUN 12 6 - 25 mg/dL [facility] Creatinine 0.90 0.60 - 1.10 mg/dL [facility] Glucose 86 70 - 199 mg/dL [facility] Comment: Interpretive Data Fasting glucose >/= 126 [...] MD LAB BL OOD ORDERABLES Final Result [facility] [address] [address] Department [place] [address] * (ABNORMAL) CBC with auto differential (01/27/2025 11:24 AM CDT) WBC 8.1 3.8 - 9.9 K/cumm Hgb 11.5(L) 11.9 - 15.5 g/dL [facility] Hct 36.3 35.6 - 45.5 % [facility] Plt 446(H) 150 - 400 K/cumm [facility] MPV 10.0 9.1 - 12.3 fL [facility] RBC 3.74(L) 3.90 - 5.20 M/cumm [facility] MCV 97.1(H) 81.3 - 96.4 fL [facility] MCH 30.7 27.1 - 33.3 pg [facility] MCHC 31.7(L) 32.3 - 35.7 g/dL [facility] RDW CV 16.0(H) 11.1 - 14.9 % [facility] RDW SD 57.1(H) 35.7 - 48.1 fL [facility] NRBC abs 0.00 0.00 - 0.01 K/cumm [facility] Blood 01/27/2025 11:2 4 AM CDT 01/27/2025 8:20 PM CDT Kaur Dietrich MD LAB BL OOD ORDERABLES Final Result [facility] [place] [address] [address] Department of [employer] [place], [place] [id number] * (ABNORMAL) CRP (acute phase) (01/27/2025 11:24 AM CDT) CRP 43.4(H) <=10.0 mg/L Blood 01/27/2025 11:2 4 AM CDT 01/27/2025 8:21 PM CDT Kaur Dietrich MD LAB BL OOD ORDERABLES Final Result Performing Organization Address City/[facility] Co de Phone Number DI ADDISON [address] [address] Department [place] [address] documented in this encounter Visit Diagnoses Diagnosis Rheumatoid arthritis, involving unspecified site, unspecified whether rheumatoid factor present (HCC) Hypervitaminosis D documented in this encounter Care Teams Automation Qa Analyst Relationship Specialty Start Date End Date Darius Novoa MD [address] [place] [address] PCP - General 04/03/07 documented as of this encounter
--- OUTSIDE RECORDS SUMMARY | 2025-01-28 09:47 | XMS_ITS | Clinical Summary ---
Author Organization [facility] Address [address], [facility] [address] [place] [address] Phone Care Team Providers Care Sliver Cutter Name Role Phone Darius Novoa MD Primary Care Provider [phone] Kai Resendiz DO Unavailable [phone] Allergies Active Allergy Reactions Criticality Noted [...] complete this topic Insurance MEDICARE Care Teams Sliver Cutter Relationship Specialty Start Date End Date Darius Novoa MD [address] [place] [address] PCP - General Internal Medicine 04/12/16 Kai Resendiz DO [address] [address] Gastroenterology 04/12/16
--- OUTSIDE RECORDS SUMMARY | 2025-01-28 09:48 | XMS_ITS | Clinical Summary ---
Author Organization [facility] Address [address] [place] [address] Care Team Providers Care Financial Supervisor Name Role Phone Darius Novoa MD Primary Care Provide r Allergies Active Allergy Reactions Criticality Noted Date Comments Ketamine Dizziness,Unknown Low 04/11/2016 Medications valACYclovir (VALTREX) 500 mg tablet 4 Active pravastatin (PRAVACHOL) 10 mg tablet Take 1 tablet (10 mg total) by mouth daily Active losartan-hydroC HLOROthiazide (HYZAAR) 50-12.5 mg per tablet 4 Active ezetimibe (ZETIA) 10 mg tablet 4 Active docusate sodium (COLACE) 100 mg capsule Take 1 capsule (100 mg total) by mouth 2 (two) times a day as needed Active ascorbic acid, vitamin C, 500 mg capsule Take 500 mg by mouth daily Active amLODIPine (NORVASC) 10 mg tablet Take 0.5 tablets (5 mg total) by mouth daily Active alendronate (FOSAMAX) 70 mg tablet Take 1 tablet (70 mg total) by mouth 4 Active acetaminophen (TYLENOL) 325 mg tablet Take 2 tablets (650 mg total) by mouth every 6 (six) hours as needed Active folic acid (FOLVITE) 1 mg tabletIndicatio ns:Rheumatoid arthritis, involving unspecified site, unspecified whether rheumatoid factor present (HCC),High risk medication use Take 1 tablet (1 mg total) by mouth daily 90 tablet 1 4 Active Xarelto 20 mg tablet Take 1 tablet (20 mg total) by mouth 4 Active methotrexate 2.5 mg tabletIndicatio ns:Rheumatoid arthritis, involving unspecified site, unspecified whether rheumatoid factor present (HCC) TAKE 4 TABLETS ONCE A WEEK 48 tablet 3 5 Active nitrofurantoin (MACRODANTIN) 50 mg capsule 5 Active CALCIUM CITRATE-VITAMIN D3 ORAL Take by mouth Active methotrexate 2.5 mg tabletIndicatio ns:Rheumatoid Arthritis Take 4 tablets (10 mg total) by mouth once a week 48 tablet 1 4 025 Discontinued Active Problems Problem Noted Date Diagnosed Date Seropositive rheumatoid arthritis 10/14/2024 Encounters Date Type Department Care Team Description 01/27/2025 11:30 AM CDT Lab [facility] Infectious Diseases [address] [place] [address] 01/27/2025 11:24 AM CDT - 01/27/2025 11:59 PM CDT Hospital Encounter [address] [address] Rheumatoid arthritis, involving unspecified site, unspecified whether rheumatoid factor present (HCC); Hypervitaminosis D Discharge Disposition: Discharge to home or self care 01/27/2025 11:00 AM CDT Office Visit [facility] Rheumatology [address] [place] [address] [address] [place] [address] Kaur Pitts MD Rheumatoid arthritis, involving unspecified site, unspecified whether rheumatoid factor present (HCC) (Primary Dx); Hypervitaminosis D; Osteoarthritis, unspecified osteoarthritis type, unspecified site; High risk medication use 01/06/2025 12:22 PM CDT - 01/06/2025 11:59 PM CDT Hospital Encounter [address] [address] Seropositive rheumatoid arthritis (HCC) (Primary Dx) Discharge Disposition: Discharge to home or self care [address] [address] Violeta Almaraz MA 12/09/2024 9:53 AM MENTAL HEALTH AIDE - 12/09/2024 11:59 PM MENTAL HEALTH AIDE Hospital Encounter [facility] [address] [address] Seropositive rheumatoid arthritis (HCC) (Primary Dx) Discharge Disposition: Discharge to home or self care 12/02/2024 Orders Only [address] [address] Christine Christensen RN 11/25/2024 11:00 AM MENTAL HEALTH AIDE - 11/25/2024 11:59 PM MENTAL HEALTH AIDE Hospital Encounter [address] [address] Seropositive rheumatoid arthritis (HCC) (Primary Dx) Discharge Disposition: Discharge to home or self care 11/22/[address] [address] Violeta Almaraz MA 11/05/2024 Orders Only [address] [address] Beth Leo, [place] from Last 3 Months Surgical History Surgery [...] on file 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 Gender Identity Not on file Sexual Orientation Not on file Obstetrics History Last Filed Vital Signs Vital Sign Reading Time Taken Comments Blood Pressure 146/80 01/27/2025 10:43 AM CDT Pulse 92 01/27/2025 10:43 AM CDT Temperature 36.7 C (98.1 F) 01/27/2025 10:43 AM CDT Respiratory Rate 16 01/06/2025 2:10 PM CDT Oxygen Saturation 92% 01/27/2025 10:43 AM CDT Inhaled Oxygen Concentration - - Weight 85.3 kg (188 lb) 01/27/2025 10:43 AM CDT Height 163.8 cm (5' 4.5 ) 01/27/2025 10:43 AM CD T Body Mass Index 31.77 01/27/2025 10:43 AM CDT Plan of Treatment Health Maintenance Due Date Last Done Comments Depression Screening 1945 Fall Risk Assessment 1945 Osteoporosis Screening-Bone Density Scan 1945 DTaP/Tdap/Td Vaccine (1 - Tdap) 1954 Zoster Vaccine (1 of 2) 1962 Well Visit 65+ 01/04/2008 Covid-19 Vaccine (6 - 2023-2 5 season) 2024 08/05/2023, 08/08/2022, 07/07/2021, Additional history exists Influenza Vaccine (Season Ended) 2025 08/01/2022, 08/16/2021, 06/26/2020, Additional history exists Pneumococcal vaccine [...] (HCC) from Last 3 Months Results * eGFR (01/27/2025 11:24 AM CDT) [...] MD LAB BL OOD ORDERABLES Final Result [facility] [address] [address] Department [place] [address] * Differential, auto (01/27/2025 11:24 AM CDT) Neutrophil abs 6.5 1.5 - 6.5 K/cumm Imm gran abs 0.1 0.0 - 0.1 K/cumm [facility] Lymphocyte abs 0.9 0.8 - 3.3 K/cumm [facility] Monocyte abs 0.6 0.2 - 0.8 K/cumm [facility] Eosinophil abs 0.1 0.0 - 0.5 K/cumm [facility] Basophil abs 0.0 0.0 - 0.1 K/cumm [facility] Neutrophil pct 79.3 % [facility] Comment: Interpretive Data Percent cell count reference ranges are not reported, since discordance with absolute values may lead to misinterpretation of CBC data. Current Interpretive Data was last revised on 2018. Imm gran pct 0.6 % [facility] Comment: Interpretive Data Percent cell count reference ranges are not reported, since discordance with absolute values may lead to misinterpretation of CBC data. Current Interpretive Data was last revised on 2018. Lymphocyte pct 11.3 % [facility] Comment: Interpretive Data Percent cell count reference ranges are not reported, since discordance with absolute values may lead to misinterpretation of CBC data. Current Interpretive Data was last revised on 2018. Monocyte pct 7.4 % [facility] Comment: Interpretive Data Percent cell count reference ranges are not reported, since discordance with absolute values may lead to misinterpretation of CBC data. Current Interpretive Data was last revised on 2018. Eosinophil pct 0.9 % [facility] Comment: Interpretive Data Percent cell count reference ranges are not reported, since discordance with absolute values may lead to misinterpretation of CBC data. Current Interpretive Data was last revised on 2018. Basophil pct 0.5 % [facility] Comment: Interpretive Data Percent cell count reference ranges are not reported, since discordance with absolute values may lead to misinterpretation of CBC data. Current Interpretive Data was last revised on 2018. Blood 01/27/2025 11:2 4 AM CDT 01/27/2025 8:20 PM CDT Kaur Dietrich MD LAB BL OOD ORDERABLES Final Result DI [place] [address] [address] Department [place] [address] * (ABNORMAL) CBC with auto [...] BL OOD ORDERABLES Final Result DI [place] [address] [address] Department [place] [address] * Vitamin D 25 hydroxy (01/27/2025 11:24 AM CDT) Vitamin D 25-OH 69 30 - 80 ng/mL Blood 01/27/2025 11:2 4 AM CDT 01/27/2025 8:20 PM CDT Kaur Dietrich MD LAB BL OOD ORDERABLES Final Result Performing Organization Address [facility] Co de Phone Number DI ADDISON [address] [address] [facility] [place] [address] * (ABNORMAL) Erythrocyte sedimentation rate (01/27/2025 11:24 AM CDT) Erythrocyte sedimentation rate 41(H) 1 - 30 mm/hr Blood 01/27/2025 11:2 4 AM CDT 01/27/2025 8:20 PM CDT Kaur Dietrich MD LAB BL OOD ORDERABLES Final Result Performing Organization Address [facility] Co de Phone Number DI CYN [address] [address] Department [place] [address] * (ABNORMAL) CRP (acute phase) (01/27/2025 11:24 AM CDT) Pathologist [facility] CRP 43.4(H) <=10.0 mg/L Blood 01/27/2025 11:2 4 AM CDT 01/27/2025 8:21 PM CDT Kaur Dietrich MD LAB BL OOD ORDERABLES Final Result Performing Organization Address City/[facility] Co de Phone Number DI CYN [address] [address] [facility] [employer] [place], [place] [id number] * (ABNORMAL) Comprehensive metabolic panel (01/27/2025 11:24 AM CDT) Sodium 132(L) 135 - 145 mmol/L Potassium, pl 3.4 3.3 - 4.9 mmol/L [facility] Chloride 89(L) 97 - 110 mmol/L [facility] [...] MD LAB BL OOD ORDERABLES Final Result [facility] [address] [address] Department [place] [address] from Last 3 Months Insurance MEDICARE [facility] [place] [address] MEDICARE [employer] MEDICARE SUPP Care Teams Financial Supervisor Relationship Specialty Start Date End Date Darius Novoa MD [address] [place], [place] [id number] PCP - General 04/03/07
--- OUTSIDE RECORDS SUMMARY | 2025-01-28 09:48 | XMS_ITS | Encounter Summary ---
Author Organization [facility] Address [address] [place] [address] Care Team Providers Care Track Repairer Helper Name Role Phone Unavailable Primary Care Provider Unavailabl e Prior Encounters Date Type Department Care Team Description 11/18/2019 Converted CPS Chart Documents [facility] [address] [place] [address] <No scans attached> 11/18/2019 Converted 13x Documents [facility] [address] [place] [address] <No scans attached> Plan of Treatment Not on file Procedures Procedure Name Priority Date/Time Associated Diagnosis Comments 3 DATA TECHNICIAN CONSULT Routine 03/25/2021 2:00 AM CDT 3 PULP VITALITY TESTS Routine 03/25/2021 2:00 AM CDT Visit Diagnoses Not on file
--- OUTSIDE RECORDS SUMMARY | 2025-01-28 09:48 | XMS_ITS | Encounter Summary ---
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
--- OUTSIDE RECORDS SUMMARY | 2025-01-28 09:48 | XMS_ITS | Clinical Summary ---
Author Organization [facility] Address [address] [place] [address] Care Team Providers Care Wheel Alignment Mechanic Name Role Phone Unavailable Primary Care Provider [...]
--- OUTSIDE RECORDS SUMMARY | 2025-01-28 09:48 | XMS_ITS | Referral Summary ---
Author Organization [facility] Address [address] [place] [address] Care Team Providers Care Christmas Tree Farm Worker Name Role Phone Darius Novoa MD Primary Care Provide r Encounters Date Type Department Care Team Description 01/27/2025 11:24 AM CDT - 01/27/2025 11:59 PM CDT Hospital Encounter [address] [address] Rheumatoid arthritis, involving unspecified site, unspecified whether rheumatoid factor present (HCC); Hypervitaminosis D Discharge Disposition: Discharge to home or self care 01/27/2025 11:30 AM CDT Lab [facility] Infectious Diseases [address] [place] [id number] 01/27/2025 11:00 AM CDT Office Visit [facility] Rheumatology [address] [place] [address] [address] [place] [address] Kaur Pitts MD Rheumatoid arthritis, involving unspecified site, unspecified whether rheumatoid factor present (HCC) (Primary Dx); Hypervitaminosis D; Osteoarthritis, unspecified osteoarthritis type, unspecified site; High risk medication use 01/06/2025 12:22 PM CDT - 01/06/2025 11:59 PM CDT Hospital Encounter [id number] [place] [address] Seropositive rheumatoid arthritis (HCC) (Primary Dx) Discharge Disposition: Discharge to home or self care [address] [address] Violeta Almaraz MA 12/09/2024 9:53 AM OPERATORS TEACHER - 12/09/2024 11:59 PM OPERATORS TEACHER Hospital Encounter [address] [address] Seropositive rheumatoid arthritis (HCC) (Primary Dx) Discharge Disposition: Discharge to home or self care 12/02/2024 Orders Only [address] [address] Christine Christensen RN 11/25/2024 11:00 AM OPERATORS TEACHER - 11/25/2024 11:59 PM OPERATORS TEACHER Hospital Encounter [address] [address] Seropositive rheumatoid arthritis (HCC) (Primary Dx) Discharge Disposition: Discharge to home or self care 11/22/[address] [address] Violeta Almaraz MA 11/05/2024 Orders Only [address] [address] Beth Leo, SALV[place]OR from Last 3 Months Allergies Active Allergy [...] on file Legal Sex Female 11:30 PM OPERATORS TEACHER Gender Identity Not on file Sexual Orientation [...] 01/27/2025 10:43 AM CDT Plan of Treatment Not on file Procedures [...] MD LAB BL OOD ORDERABLES Final Result [facility] [address] Department [place] [address] * Differential, auto (01/27/2025 11:24 AM CDT) Neutrophil abs 6.5 1.5 - 6.5 K/cumm Imm gran abs 0.1 0.0 - 0.1 K/cumm [facility] Lymphocyte abs 0.9 0.8 - 3.3 K/cumm [facility] Monocyte abs 0.6 0.2 - 0.8 K/cumm [facility] Eosinophil abs 0.1 0.0 - 0.5 K/cumm [facility] Basophil abs 0.0 0.0 - 0.1 K/cumm [facility] Neutrophil pct 79.3 % [facility] Comment: Interpretive Data Percent cell count reference ranges are not reported, since discordance with absolute values may lead to misinterpretation of CBC data. Current Interpretive Data was last revised on 2018. Imm gran pct 0.6 % [facility] Comment: Interpretive Data Percent cell count reference ranges are not reported, since discordance with absolute values may lead to misinterpretation of CBC data. Current Interpretive Data was last revised on 2018. Lymphocyte pct 11.3 % [facility] Comment: Interpretive Data Percent cell count reference ranges are not reported, since discordance with absolute values may lead to misinterpretation of CBC data. Current Interpretive Data was last revised on 2018. Monocyte pct 7.4 % [facility] Comment: Interpretive Data Percent cell count reference ranges are not reported, since discordance with absolute values may lead to misinterpretation of CBC data. Current Interpretive Data was last revised on 2018. Eosinophil pct 0.9 % [facility] Comment: Interpretive Data Percent cell [...] MD LAB BL OOD ORDERABLES Final Result [facility] [address] Department [place] [address] * (ABNORMAL) CBC with auto differential (01/27/2025 11:24 AM CDT) WBC 8.1 3.8 - 9.9 K/cumm Hgb 11.5(L) 11.9 - 15.5 g/dL [facility] Hct 36.3 35.6 - 45.5 % [facility] Plt 446(H) 150 - 400 K/cumm [facility] MPV 10.0 9.1 - 12.3 fL [facility] RBC 3.74(L) 3.90 - 5.20 M/cumm [facility] MCV 97.1(H) 81.3 - 96.4 fL [facility] MCH 30.7 27.1 - 33.3 pg [facility] MCHC 31.7(L) 32.3 - 35.7 g/dL [facility] RDW CV 16.0(H) 11.1 - 14.9 % [facility] RDW SD 57.1(H) 35.7 - 48.1 fL [facility] NRBC abs 0.00 0.00 - 0.01 K/cumm [facility] Blood 01/27/2025 11:2 4 AM CDT 01/27/2025 8:20 PM CDT Kaur Dietrich MD LAB BL OOD ORDERABLES Final Result Performing Organization Address City/[facility]/ZIP Co de Phone Number [facility] [address] [place] [address] * Vitamin D 25 hydroxy (01/27/2025 11:24 AM CDT) Vitamin D 25-OH 69 30 - 80 ng/mL Blood 01/27/2025 11:2 4 AM CDT 01/27/2025 8:20 PM CDT Kaur Dietrich MD LAB BL OOD ORDERABLES Final Result Performing Organization Address [facility] Co de Phone Number [facility] [address] [place] [address] * (ABNORMAL) Erythrocyte sedimentation rate (01/27/2025 11:24 AM CDT) Erythrocyte sedimentation rate 41(H) 1 - 30 mm/hr Blood 01/27/2025 11:2 4 AM CDT 01/27/2025 8:20 PM CDT Kaur Dietrich MD LAB BL OOD ORDERABLES Final Result Performing Organization Address City/[facility] Co de Phone Number [facility] [address] [place] [address] * (ABNORMAL) CRP (acute phase) (01/27/2025 11:24 AM CDT) CRP 43.4(H) <=10.0 mg/L Blood 01/27/2025 11:2 4 AM CDT 01/27/2025 8:21 PM CDT Mohcyndee Dietrich MD LAB [place] [address] Department [place] [address] * (ABNORMAL) Comprehensive metabolic panel (01/27/2025 11:24 [...] [place] [address] [address] Department [place] [address] from Last 3 Months Insurance MEDICARE [facility] MEDICARE SUPP MEDICARE [facility] MEDICARE SUPP Care Teams Christmas Tree Farm Worker Relationship Specialty Start Date End Date Darius Novoa MD [address] [place] [address] PCP - General 04/03/07
--- OUTSIDE RECORDS SUMMARY | 2025-01-28 09:48 | XMS_ITS | Encounter Summary ---
Author Organization [facility] Address [address] [place] [address] Phone Care Team Providers Care Commercial Loan Specialist Name Role Phone Darius Novoa MD Primary [...] on file Legal Sex Female 11:30 PM CLINICAL QUALITY RN Gender Identity Not on file Sexual Orientation [...] on filedocumented in this encounter Care Teams Commercial Loan Specialist Relationship Specialty Start Date End Date Darius Novoa MD [address] [place] [address] PCP - General 04/03/07 documented as of this encounter
== END 2025-01-28 09:15 | disposition home or self-care (01) ==
PROVIDERS: PCP Emergency Medicine; Visit Provider Emergency Medicine
DX: I82.401 Acute embolism and thrombosis of unspecified deep veins of right lower extremity (principal)
CPT/HCPCS: 93971

== ENCOUNTER 2025-08-15 08:26 | Outpatient (CLI) | payer MEDICARE, OTHER, SELFPAY ==
--- NOTE | ~2025-08-15 | US_ITS ---
US art doppler w press LE BI INDICATION: Peripheral vascular disease TECHNIQUE: Segmental pressures and plethysmographic and Doppler waveforms of the brachial and lower extremity arteries were obtained. COMPARISON: None. FINDINGS: Right and left brachial artery pressures of 142 mm Hg and 141 mm Hg, respectively, are concordant (normal difference <= 30 mmHg). The right ankle-brachial index (BECKY) is 1.22 (normal >= 0.9-1.0). The right great toe-brachial index (TBI) is 0.56 (normal >= 0.60). The left BECKY is 1.2. The left TBI is 0.68. IMPRESSION: 1. Normal ankle-brachial indices. 2: Mildly decreased right toe brachial index measuring 0.56, consistent with peripheral arterial disease. Reviewed, dictated and finalized at location O. IMPRESSION: 1. Normal ankle-brachial indices. 2: Mildly decreased right toe brachial index measuring 0.56, consistent with p eripheral arterial disease.
--- OUTSIDE RECORDS SUMMARY | 2025-08-15 08:36 | XMS_ITS | Encounter Summary ---
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
--- OUTSIDE RECORDS SUMMARY | 2025-08-15 08:36 | XMS_ITS | Clinical Summary ---
Author Organization [facility] Address [address], [facility] [address] [place] [address] Phone Care Team Providers Care House Father Name Role Phone Darius Novoa MD Primary Care Provider [phone] Kai Resendiz DO Unavailable [phone] Allergies Active Allergy Reactions Criticality Noted Date [...] Mrna, Lnp-s, Pf, 30 Mcg/0.3 Ml Dose (P fizer) 01/18/2021,12/28/2020 Family History Medical History Relation [...] Health Maintenance Due Date Last Done Comments Hepatitis C Virus (HCV) Screening 1945 TdaP Immunization 1945 Zoster Immunization (1 of 2) 1962 Pneumococcal Immunization (5 0+ years) (1 of 1 - PCV) 1993 Medicare Initial AWV [id number] 12/28/2008 Respiratory Syncytial Virus (RSV) Immunization (Adult) (1 - 1-dose 75+ series) 2018 SARS-COV-2 Immunization (3 - Pfizer risk series) 02/15/2021 01/18/2021, 12/28/2020 Influenza Immunization (#1) 2025 Hepatitis B Immunization Aged Out No longer eligible based on patient's age to complete this topic Human Papillomavirus (HPV) Immunization Aged Out No longer eligible b ased on patient's age to complete this topic Meningococcal Immunization (ACWY) Aged Out No longer eligible b ased on patient's age to complete this topic Rotavirus Immunization Aged Out No lo nger eligible based on patient's age [place] [address] MEDICARE Care Teams House Father Relationship Specialty Start Date End Date Darius Novoa MD [address] [place] [address] PCP - General Internal Medicine 04/12/16 Kai Resendiz DO [address] [place] [address] Gastroenterology 04/12/16
--- OUTSIDE RECORDS SUMMARY | 2025-08-15 08:36 | XMS_ITS | Encounter Summary ---
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
--- OUTSIDE RECORDS SUMMARY | 2025-08-15 08:36 | XMS_ITS | Clinical Summary ---
Author Organization [facility] Address [address] [place] [address] Care Team Providers Care Corporate Development Officer Name Role Phone Darius Novoa MD Primary Care Provide r Allergies Active Allergy Reactions Criticality Noted Date Comments Ketamine Dizziness,Unknown Low 04/11/2016 Medications valACYclovir (VALTREX) 500 mg tablet Take 1 tablet (500 mg total) by mouth 2 (two) times a day 4 Active pravastatin (PRAVACHOL) 10 mg tablet Take 1 tablet (10 mg total) by mouth daily Active losartan-hydroCH LOROthiazide (HYZAAR) 50-12.5 mg per tablet 4 Active ezetimibe (ZETIA) 10 mg tablet Take 1 tablet (10 mg total) by mouth daily 4 Active docusate sodium (COLACE) 100 mg [...] 1 tablet (70 mg total) by mouth every 7 days 4 Active acetaminophen (TYLENOL) 325 mg tablet Take 2 tablets (650 mg total) by mouth every 6 (six) hours as needed Active Xarelto 20 mg tablet Take 1 tablet (20 mg total) by mouth daily with breakfast 4 Active methotrexate 2.5 mg tabletIndication s:Rheumatoid arthritis, involving unspecified site, unspecified whether rheumatoid factor present (HCC) TAKE 4 TABLETS ONCE A WEEK 48 tablet 3 5 Active nitrofurantoin (MACRODANTIN) 50 mg capsule Take 1 capsule (50 mg total) by mouth daily 5 Active CALCIUM CITRATE-VITAMIN D3 ORAL Take 1 tablet by mouth daily Active folic acid (FOLVITE) 1 mg tabletIndication s:Rheumatoid arthritis, involving unspecified site, unspecified whether rheumatoid factor present (HCC),High risk medication use Take 1 tablet (1 mg total) by mouth daily 90 tablet 3 5 03/10/20 26 Active irbesartan-hydro chlorothiazide (AVALIDE) 150-12.5 mg per tablet Take 1 tablet by mouth daily Active Active Problems Problem Noted Date Diagnosed Date Seropositive rheumatoid arthritis 10/14/2024 Encounters Date Type Department Care Team Description 06/23/2025 9:00 AM CDT - 06/23/2025 11:59 PM CDT Hospital Encounter [address] [address] Christine Christensen, [place] Seropositive rheumatoid arthritis (HCC) (Primary Dx) Discharge Disposition: Discharge to home or self care from Last 3 Months Surgical History Surgery [...] Never Tobacco Cessation:Counseling Given: Not Answered Comments No Sex and Gender Information Value Date Recorded Sex Assigned at Not on file 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 Gender Identity Not on file Sexual Orientation Not on file Obstetrics History Last Filed Vital Signs Vital Sign Reading Time Taken Comments Blood Pressure 161/82 06/23/2025 9:15 AM CDT Pulse 90 06/23/2025 9:15 AM CDT Temperature 36.7 C (98.1 F) 06/23/2025 9:15 AM CDT Respiratory Rate 16 06/23/2025 9:15 AM CDT Oxygen Saturation 98% 06/23/2025 9:15 AM CDT Inhaled Oxygen Concentration - - Weight 86 kg (189 lb 9.6 oz) 06/23/2025 9:15 AM CDT Height 163.8 cm (5' 4.5) 01/27/2025 10:43 AM CD T Body Mass Index 32.04 01/27/2025 10:43 AM CDT Plan of Treatment Health Maintenance Due Date Last Done Comments Depression Screening 1943 Fall Risk Assessment 1943 Osteoporosis Screening-Bone Density Scan 1943 DTaP/Tdap/Td Vaccine (1 - Tdap) 1954 Zoster Vaccine (1 of 2) 1962 Well Visit 65+ 01/04/2008 Covid-19 Vaccine (6 - 2024-2 6 season) 2025 08/05/2023, 08/08/2022, 07/07/2021, Additional history exists Influenza Vaccine (#1) 2025 , 08/01/2022, 08/16/2021, Additional history exists Pneumococcal vaccine 65+ Completed 07/16/2023, 08/31 Hepatitis B Screening Completed 07/15/2024 [place] [address] MEDICARE [facility] [place] [address] MEDICARE [employer] MEDICARE SUPP Care Teams Corporate Development Officer Relationship Specialty Start Date End Date Darius Novoa MD [address] [address] PCP - General 04/03/07
--- OUTSIDE RECORDS SUMMARY | 2025-08-15 08:36 | XMS_ITS | Clinical Summary ---
Author Organization [facility] Address [address] [place] [address] Care Team Providers Care Visual Effects Editor Name Role Phone Darius Novoa MD Primary Care Provider [phone] Allergies Active Allergy Reactions Criticality Noted Date [...] Noted Date Diagnosed Date Seropositive rheumatoid arthritis of multiple si sintia 07/13/2020 Social History Tobacco Use Types Packs/Day Years Used Date Smoking Tobacco: Never Assessed Comments Unknown Sex and Gender Information Value Date Recorded Sex Assigned at Not on file Legal Sex Female 5:32 PM CDT Gender Identity Not on file Sexual Orientation Not on file Last Filed Vital Signs Vital Sign Reading Time Taken Comments Blood Pressure 156/81 09/07/2020 10:36 AM POSTAL DELIVERY OFFICER Pulse 99 09/07/2020 10:36 AM POSTAL DELIVERY OFFICER Temperature 36.7 C (98 F) 09/07/2020 10:36 AM POSTAL DELIVERY OFFICER Respiratory Rate 18 09/07/2020 10:36 AM POSTAL DELIVERY OFFICER Oxygen Saturation 97% 09/07/2020 10:36 AM POSTAL DELIVERY OFFICER Inhaled Oxygen Concentration - - Weight 86.2 kg (190 lb) 09/07/2020 10:36 AM POSTAL DELIVERY OFFICER Height 167.6 cm (5' 6) 07/13/2020 9:38 AM CDT Body Mass Index 30.67 07/13/2020 9:38 AM CDT Plan of Treatment Health Maintenance Due Date Last Done Comments DTaP, Tdap and Td Vaccines (1 - Tdap) 1962 Pneumococcal Vaccine: 50+ Years (1 of 1 - PCV) 1993 Zoster Vaccines (1 of 2) 1993 Annual Medicare Wellness Visit 01/04/2008 Dexa Scan (General) 01/04/2008 RSV Immunization or 60+ Years (1 - 1-dose 75+ series) 2018 COVID-19 Vaccine ( - season) 2025 Influenza Adult (#1) 2025 07/10/2019, 07/10/2018, 07/18/2017, Additional history exists Meningococcal B Vaccine Aged Out No l onger eligible based on patient's age to complete this topic Meningococcal Vaccine Aged Out No myra sammy eligible based on patient's age to complete this topic RSV Immunizations Under 20 Months Aged Out No longer eligible based on patient's age to complete this topic Insurance MEDICARE [employer] Care Teams Visual Effects Editor Relationship Specialty Start Date End Date Darius Novoa MD [address] [address] PCP - General INTERNAL MEDICINE 07/13/20
== END 2025-08-15 08:27 | disposition home or self-care (01) ==
PROVIDERS: PCP Emergency Medicine; Visit Provider Emergency Medicine
DX: I73.9 Peripheral vascular disease, unspecified (principal)
CPT/HCPCS: 93923

== ENCOUNTER 2025-08-25 09:51 | Outpatient (CLI) | payer MEDICARE, SELFPAY ==
--- NOTE | ~2025-08-25 | XR_ITS ---
EXAMINATION: XR abdomen/kub 1V, 08/25/2025 9:58 CDT HISTORY: dvt of left leg, right sided pain x 6 months, looking for COMPARISON: No comparisons available. Technique: 3 view. Findings: Bowel gas pattern unremarkable. No obstruction. Right lower pole renal calculus 1.2 x 1 cm. No acute osseous abnormality. Impression: 1. No acute abnormality. Reviewed, dictated and finalized at location P. Impression: 1. No acute abnormality.
== END 2025-08-25 09:52 | disposition home or self-care (01) ==
PROVIDERS: PCP Emergency Medicine; Visit Provider Urology
DX: I82.401 Acute embolism and thrombosis of unspecified deep veins of right lower extremity (principal)
CPT/HCPCS: 74018

== ENCOUNTER 2025-09-08 10:13 | Outpatient (CLI) | payer MEDICARE, OTHER, SELFPAY ==
--- NOTE | ~2025-09-08 | US_ITS ---
RIGHT LOWER EXTREMITY VENOUS DUPLEX Clinical History: I82.401 - Acute embolism and thrombosis of unspecified de... COMPARISON: 01/28/2025 TECHNIQUE: Grayscale, color, duplex/spectral Doppler sonography right leg FINDINGS: Right leg common femoral, femoral, popliteal, and calf veins compressible and color Doppler patent. Normal augmentation with distal compression. No internal echoes. IMPRESSION: 1. No right leg DVT. Reviewed, dictated and finalized at location R. TH CARE ANALYST IMPRESSION: 1. No right leg DVT.
--- OUTSIDE RECORDS SUMMARY | 2025-09-08 10:58 | XMS_ITS | Clinical Summary ---
Author Organization [facility] Address [address] [place] [address] Care Team Providers Care Biometry Teacher Name Role Phone Darius Novoa MD Primary Care Provider [phone] Allergies Active Allergy Reactions Criticality Noted Date [...] Comments Blood Pressure 156/81 09/07/2020 10:36 AM THORACIC SURGEON Pulse 99 09/07/2020 10:36 AM THORACIC SURGEON Temperature 36.7 C (98 F) 09/07/2020 10:36 AM THORACIC SURGEON Respiratory Rate 18 09/07/2020 10:36 AM THORACIC SURGEON Oxygen Saturation 97% 09/07/2020 10:36 AM THORACIC SURGEON Inhaled Oxygen Concentration - - Weight 86.2 kg (190 lb) 09/07/2020 10:36 AM THORACIC SURGEON Height 167.6 cm (5' 6) 07/13/2020 9:38 AM CDT Body Mass Index 30.67 07/13/2020 9:38 AM CDT Plan of Treatment Health Maintenance Due Date Last Done Comments COVID-19 Vaccine (#1) 01/04/1950 DTaP, Tdap and Td Vaccines (1 - Tdap) 1962 Pneumococcal Vaccine: 50+ Years (1 of 1 - PCV) 1993 Zoster Vaccines (1 of 2) 1993 Annual Medicare Wellness Visit 01/04/2008 Dexa Scan (General) 01/04/2008 RSV Immunization or 60+ Years (1 - 1-dose 75+ series) 2018 Influenza Adult (#1) 2025 07/10/2019, 07/10/2018, 07/18/2017, Additional history exists Hepatitis A Vaccines Aged Out No long er eligible based on patient's age to complete this topic Meningococcal B Vaccine Aged Out No l onger eligible based on patient's age to complete this topic Meningococcal Vaccine Aged Out No myra sammy eligible based on patient's age to complete this topic RSV Immunizations Under 20 Months Aged Out No longer eligible based on patient's age to complete this topic Insurance MEDICARE [employer] Care Teams Biometry Teacher Relationship Specialty Start Date End Date Darius Novoa MD [address] [address] PCP - General INTERNAL MEDICINE 07/13/20
--- OUTSIDE RECORDS SUMMARY | 2025-09-08 10:58 | XMS_ITS | Clinical Summary ---
Author Organization [facility] Address [address] [place] [address] Care Team Providers Care Testboard Operator Name Role Phone Darius Novoa MD [...] Encounters Date Type Department Care Team Description 08/18/2025 9:00 AM CDT - 08/18/2025 11:59 PM CDT Hospital Encounter [address] [address] Rachel Diaz RN Seropositive rheumatoid arthritis (HCC) (Primary Dx) Discharge Disposition: Discharge to home or self care 06/23/2025 9:00 AM CDT - 06/23/2025 11:59 PM CDT Hospital Encounter [address] [address] Christine Christensen RN Seropositive rheumatoid arthritis (HCC) (Primary Dx) Discharge [...] on file 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 Gender Identity Not on file Sexual Orientation Not on file Last Filed Vital Signs Vital Sign Reading Time Taken Comments Blood Pressure 128/66 08/18/2025 12:03 PM CDT Pulse 75 08/18/2025 12:03 PM CDT Temperature 36.4 C (97.5 F) 08/18/2025 9:11 AM CDT Respiratory Rate 16 08/18/2025 12:03 PM CDT Oxygen Saturation 100% 08/18/2025 12:03 PM CDT Inhaled Oxygen Concentration - - Weight 83.9 kg (185 lb) 08/18/2025 9:11 AM CDT Height 163.8 cm (5' 4.5) 01/27/2025 10:43 AM CD T Body Mass Index 31.26 01/27/2025 10:43 AM CDT Plan of Treatment Health Maintenance Due Date Last Done Comments Depression Screening 1943 Fall Risk Assessment 1943 Osteoporosis Screening-Bone Density Scan 1943 DTaP/Tdap/Td Vaccine (1 - Tdap) 1954 Zoster Vaccine (1 of 2) 1962 Well Visit 65+ 01/04/2008 Covid-19 Vaccine (2024-2 6 season) 2025 08/05/2023, 08/08/2022, 07/07/2021, Additional history exists Influenza Vaccine (#1) 2025 , 08/01/2022, 08/16/2021, Additional history exists Pneumococcal vaccine 65+ Completed 07/16/2023, 08/31 Hepatitis B Screening Completed 07/15/2024 Insurance MEDICARE [employer] MEDICARE SUPP MEDICARE [employer] MEDICARE SUPP Care Teams Testboard Operator Relationship Specialty Start Date End Date Darius Novoa MD [address] [place] [address] PCP - General 04/03/07
--- OUTSIDE RECORDS SUMMARY | 2025-09-08 10:58 | XMS_ITS | Encounter Summary ---
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
--- OUTSIDE RECORDS SUMMARY | 2025-09-08 10:58 | XMS_ITS | Clinical Summary ---
Author Organization [facility] Address [address] [place] [address] Care Team Providers Care Data Processing Clerk Name Role Phone Unavailable Primary Care Provider [...]
--- OUTSIDE RECORDS SUMMARY | 2025-09-08 10:58 | XMS_ITS | Encounter Summary ---
Author Organization [facility] Health Address [address] [place] [address] Care Team Providers Care Comptometrist Name Role Phone Unavailable Primary Care Provider Unavailabl e Prior Encounters Date Type Department Care Team Description 11/18/2019 Converted CPS Chart Documents [facility] [address] [place] [address] <No scans attached> 11/18/2019 Converted 13x Documents [facility] [address] [place] [address] <No scans attached> Plan of Treatment Not on file Procedures Procedure Name Priority Date/Time Associated Diagnosis Comments 3 ENDO CONSULT Routine 03/25/2021 2:00 AM CDT 3 PULP VITALITY TESTS Routine 03/25/2021 2:00 AM CDT Visit Diagnoses Not on file
--- OUTSIDE RECORDS SUMMARY | 2025-09-08 10:58 | XMS_ITS | Clinical Summary ---
Author Organization [facility] Address [address], [facility] [address] [place] [address] Phone Care Team Providers Care Client Manager Large Law Name Role Phone Darius Novoa MD Primary Care Provider [phone] Kai Resendiz DO Unavailable [phone] Allergies Active Allergy Reactions Criticality Noted [...] patient's age to complete [place] [address] MEDICARE Care Teams Client Manager Large Law Relationship Specialty Start Date End Date Darius Novoa MD [address] [place] [id number] PCP - General Internal Medicine 04/12/16 Kai Resendiz DO [address] [place] [id number] Gastroenterology 04/12/16
--- OUTSIDE RECORDS SUMMARY | 2025-09-08 10:58 | XMS_ITS | Encounter Summary ---
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
== END 2025-09-08 10:14 | disposition home or self-care (01) ==
PROVIDERS: PCP Emergency Medicine; Visit Provider Emergency Medicine
DX: I82.401 Acute embolism and thrombosis of unspecified deep veins of right lower extremity (principal)
CPT/HCPCS: 93971

== ENCOUNTER 2025-09-19 16:42 | Emergency (ER) | payer MEDICARE, OTHER, SELFPAY ==
--- NOTE | 2025-09-19 16:43 | ED.URI ---
HPI - URI/Sore Throat General Chief Complaint: Upper Respiratory Infection Stated Complaint: COUGH/CONGESITON/SINUS Time Seen by Provider: 09/19/25 16:42 Source: patient Mode of arrival: ambulatory Limitations: no limitations History of Present Illness HPI Narrative: Preethi is an 80-year-old female patient presenting to the clinic today with complaints of cough and sinus congestion x 9 days. She reports some nasal drainage is clear. Denies any fevers, chills, body aches. Denies any chest pain or shortness of breath. Reports a lot of postnasal drip. Related Data Home Medications ?Medication ?Instructions ?Recorded ?Confirmed ?Last Taken ?Type ascorbate calcium (vitamin C) 500 500 mg PO DAILY 10/02/19 07/18/25 05/15/21 History mg tablet wheat dextrin 3 gram/3.5 gram oral See Rx Instructions .Route .COMPLEX 10/02/19 07/18/25 05/15/21 History powder packet (Benefiber Clear Sugar Free(dextrin)) calcium + D3 BYMOUTH 2XD 11/21/24 07/18/25 Unknown History amlodipine 5 mg tablet 5 mg PO DAILY 03/31/25 07/18/25 Unknown History methotrexate sodium 2.5 mg tablet 2.5 mg PO WEEKLY 03/31/25 07/18/25 Unknown History Allergies Allergy/AdvReac Type Severity Reaction Status Date / Time ketamine Allergy Intermediate BLURRY Verified 09/01/25 09:10 VISION Review of Systems Review of Systems: Pertinent positives per HPI. Patient denies any fever, chills, rash, headache, visual changes, dizziness, shortness of breath, chest pain, palpitations, nausea, vomiting, diarrhea, constipation, abdominal pain, or any urinary issues. [facility] Past Medical History Medical History Left knee DJD DVT (deep venous thrombosis) Degenerative joint disease of knee Effusion of knee joint Preop cardiovascular exam Fall Right ankle pain Rheumatoid myopathy with rheumatoid arthritis Rheumatoid arthritis Osteopenia Fatigue Vertigo SOB (shortness of breath) Polyosteoarthritis, unspecified Occult blood positive stool Labyrinthitis of both ears Hyperglycemia H/O adenomatous polyp of colon External hemorrhoid Essential (primary) hypertension Elevated liver enzymes Elevated ALT measurement Edema, lower extremity Earache on left Dyslipidemia ORTEGA (dyspnea on exertion) Diastolic dysfunction, left ventricle Age related osteoporosis Effusion of knee joint right Sinusitis Left ear pain Arthritis Wears glasses Right knee DJD Bakers cyst Right calf pain Hemorrhoids Anemia Bilateral hand pain Nasal fracture Increased BMI Post-menopausal Other screening mammogram Hyperlipidemia Vitamin D deficiency Rheumatoid arthritis with rheumatoid factor of multiple sites without organ or systems involvement (~2017) Shingles Obesity Edema of both legs Vitamin B 12 deficiency HTN (hypertension) Surgical History Surgical History Colonoscopy planned History of eye surgery History of back surgery History of hysterectomy Skin cancer Family History Family History Sibling Family history of heart disease in male family member before age 55, Onset Age: 36 Family history of malignant neoplasm Mother Family history of malignant neoplasm of breast in first degree relative Family history of malignant neoplasm of ovary Hypertension Family history of malignant neoplasm Father Family history of throat cancer Family history of cardiovascular disease, Onset Age: 76 Family history of malignant neoplasm, Onset Age: 76 Other Diabetes mellitus HLD (hyperlipidemia) Social History Social History Social History: Patient drinks caffeine daily. Smoking status: Never smoker Second hand tobacco smoke exposure: No Alcohol intake: never Substance use: never Substance use type: does not use Do You Feel Safe in your Home?: Yes Lack of Transportation: No Lack of Food: Never True Current Housing: Decline to Answer Concerned About Future Housing: Decline to Answer Difficulty Paying Gas/Electric Bills: Decline to Answer Difficulty Paying for Meds: Decline to Answer Currently Unemployed: Decline to Answer Education: Decline to Answer Difficulty w/ Childcare or Family Care: Decline to Answer Living arrangements: alone Additional living arrangements comments: Patient is a . Occupation/Education: retired Gender identity (if verbalized by the patient): Female Sexual Orientation (if Verbalized by the Patient): Straight or Heterosexual Spiritual care concerns: No Comments At the time of my signature, I reviewed and agree with the nursing past medical, surgical, social, and family history. There is no relevant family history pertinent to the patient complaint. Exam Narrative: General: Well-developed, well nourished, in no apparent distress Head: Normocephalic, atraumatic Eyes: Pupils equally round and reactive to light bilaterally, EOM intact, sclera and conjunctive clear, no discharge, lids normal Ears: TMs intact and clear, ear canals clear, no drainage, grossly hearing normal. Nose: Nares patent, clear nasal discharge, mild inflammation, no sinus tenderness. Mouth: Oral pharynx without lesions or masses, good dentition, MMM. Postnasal drip Neck: Supple, trachea midline, no enlargement of anterior or posterior cervical nodes, no thyroid masses or goiter palpable. Cardio: Regular rate and rhythm, s1 and s2 normal, no murmur appreciated. Resp: Clear to auscultation bilaterally, no rhonchi, rales, wheezing or rubs Course Course Emergency Course: Portions of this record may have been created with voice recognition software. Level of Care: Express Care Visit Vital Signs Vital signs: Vital Signs Temperature 36.8 C 09/19/25 16:53 Pulse Rate 80 09/19/25 16:53 Respiratory Rate 16 09/19/25 16:53 Blood Pressure 145/87 H 09/19/25 16:53 Pulse Oximetry 100 09/19/25 16:53 Oxygen Delivery Room Air 09/19/25 16:53 Temperature 36.8 C 09/19/25 16:53 Pulse Rate 80 09/19/25 16:53 Respiratory Rate 16 09/19/25 16:53 Blood Pressure 145/87 H 09/19/25 16:53 Pulse Oximetry 100 09/19/25 16:53 Oxygen Delivery Room Air 09/19/25 16:53 Vital signs reviewed MDM - URI/Sore Throat MDM Narrative Medical decision making narrative: At the time of visit patient is resting comfortably on the exam table. Patient appears to be nontoxic. Complaints of cough and sinus congestion x 9 days. She reports some nasal drainage is clear. Denies any fevers, chills, body aches. Denies any chest pain or shortness of breath. Reports a lot of postnasal drip. On exam patient has bilateral TMs intact and clear, clear nasal drainage, oral pharynx mildly red with postnasal drip, no cervical lymphadenopathy, lung sounds are clear, heart rates regular rate and rhythm. Plan: I suspect patient has URI/postnasal drip. Prescription for prednisone was sent to the pharmacy. Supportive measures were discussed with the patient and they voiced understanding discharge instructions and agrees to treatment plan. Return precautions reviewed Differential Diagnosis Differential diagnosis: Likely upper respiratory infection, otitis media, sinusitis, viral infection, bronchitis, influenza, pharyngitis and other (COVID) Discharge Plan Discharge Clinical Impression: Post-nasal drip URI (upper respiratory infection) Qualifiers: URI type: unspecified URI Qualified Code(s): J06.9 - Acute upper respiratory infection, unspecified Patient Disposition: Home Condition: Stable Instructions: Antibiotic Form, Cold Symptoms (ED), Postnasal Drip (DC) Additional Instructions: Take prescription medications only as prescribed-prednisone Increase fluids and stay well hydrated May take Tylenol or motrin as directed on bottle for pain/fever May use Flonase 1 spray in each nare daily May take OTC antihistamines such as Zyrtec or Claritin daily as directed on bottle May apply Vicks vapor rub to chest to open sinuses Sinus rinses for congestion Cepacol spray, cough drops, throat lozenges, warm tea with honey/lemon, gargle salt water to soothe throat BRAT diet for diarrhea Clear liquids x 24 hours then advance as tolerated for nausea/vomiting Go to the ED if you develop a worsening in your condition- high fever not controlled by Tylenol or Motrin, dehydration, weakness, lethargy, shortness of breath, or chest pain. Follow up with your PCP in 3-5 days if symptoms persist. Patient Language: Spanish Prescriptions: New prednisone 20 mg tablet 40 mg PO DAILY 5 Days Qty: 10 0RF No Action ascorbate calcium (vitamin C) 500 mg tablet 500 mg PO DAILY Benefiber Clear SF (dextrin) 3 gram/3.5 gram powder in packet See Rx Instructions .ROUTE .COMPLEX Rx Instructions: take by oral route daily ; folic acid 1 mg tablet 2 mg PO DAILY Qty: 180 1RF amlodipine 5 mg tablet 5 mg PO DAILY methotrexate sodium 2.5 mg tablet 2.5 mg PO WEEKLY calcium + D3 BYMOUTH 2XD ezetimibe 10 mg tablet See Rx Instructions .ROUTE .COMPLEX Qty: 90 3RF Dose Instruction: TAKE 1 TABLET DAILY Rx Instructions: TAKE 1 TABLET DAILY pravastatin 10 mg tablet See Rx Instructions .ROUTE .COMPLEX Qty: 90 2RF Dose Instruction: TAKE 1 TABLET DAILY Rx Instructions: TAKE 1 TABLET DAILY irbesartan-hydrochlorothiazide 150-12.5 mg tablet See Rx Instructions .ROUTE .COMPLEX Qty: 90 3RF Dose Instruction: Take 1 tablet by mouth once daily Rx Instructions: Take 1 tablet by mouth once daily valacyclovir 500 mg tablet See Rx Instructions .ROUTE .COMPLEX Qty: 180 3RF Dose Instruction: TAKE 1 TABLET EVERY 12 HOURS Rx Instructions: TAKE 1 TABLET EVERY 12 HOURS alendronate 70 mg tablet See Rx Instructions .ROUTE .COMPLEX Qty: 12 3RF Dose Instruction: TAKE 1 TABLET WEEKLY Rx Instructions: TAKE 1 TABLET WEEKLY Follow-up/Referrals: Darius Novoa MD [Primary Care Provider, Internal Medicine] Time of Disposition: 16:58 Quality NIHSS Nursing Documentation ED NIHSS nursing documentation: reviewed/agree
[2025-09-19 16:53] VITALS: BP 145/87; PULSE 80; RESP 16; TEMP 36.8; O2SAT 100
== END 2025-09-19 16:59 | disposition home or self-care (01) ==
PROVIDERS: Emergency Provider Nurse Practitioner Family; PCP Emergency Medicine
DX: R09.82 Postnasal drip (principal); J06.9 Acute upper respiratory infection, unspecified; I10 Essential (primary) hypertension; E78.5 Hyperlipidemia, unspecified; E55.9 Vitamin D deficiency, unspecified; M17.0 Bilateral primary osteoarthritis of knee; M85.80 Other specified disorders of bone density and structure, unspecified site; M05.79 Rheumatoid arthritis with rheumatoid factor of multiple sites without organ or systems involvement
CPT/HCPCS: 99213; G0463